=== PATIENT | male | born 1970 | race Caucasian/White ===

== ENCOUNTER 2019-12-14 12:34 | Inpatient (IN) | payer OTHER ==
[~2019-12-14] VITALS: Ht 182.9 cm; Wt 132.2 kg
[~2019-12-14 12:34] MED LIST: ALBIPROI INH; ALEVE; AMIT50 PO; AMOX500 PO; BCOIRO; BENZ2 PO; BUPR1 PO; BUPRENORPHIN-N1 EACH SL; BUPRENORPHN-NA1 EACH SL; CEPH500 PO; CHLO10 PO; CLON1 PO; CLON2 PO; CYCL10 PO; DOXY100 PO; FLUO20 PO; HALO5 PO; HYDACE10 PO; HYDACE10B PO; HYDACE5 PO; HYDMOR2 PO; HYDMOR4 PO; HYDPAM100 PO; HYDPAM50 PO; HYDSUL200 PO; IBUP600; IBUP800 PO; LORA1 PO; META800 PO; METO25ER PO; NAPR500 PO; NAPR550 PO; OMEP40CA12 PO; OXYACE5T PO; OXYACE7.5T PO; OXYC10TA19 PO; Oxycodone-Apap1 EA14 PO; PENVK500 PO; PROACE100 PO; QUET100 PO; QUET200 PO; QUET300 PO; RANI150 PO; RXCLIN PO; RXHYDACE PO; RXPROACE PO; SERT50 PO; TRAM50 PO; Vistaril50 MG PO; [UNRECOGNIZED DRUG - REMARK]; [UNRECOGNIZED DRUG - REMARK]
[2019-12-14] MEDS ORDERED: FUROSEMIDE40 MG PO (13:38)
[2019-12-14 13:40] LABS: BASOPHILS ABSOLUTE AUTO 0.09 K/mm3 (0.00-0.23); BASOPHILS PERCENT AUTO 1 % (0-2); EOSINOPHILS ABSOLUTE AUTO 0.21 K/mm3 (0.00-0.68); EOSINOPHILS PERCENT AUTO 2 % (0-6); Hematocrit 38.2 % (37.0-53.0); Hemoglobin 12.3 g/dL (13.5-17.5); IMMATURE GRAN ABSOLUTE AUTO 0.13 K/mm3 (0.00-0.10); IMMATURE GRAN PERCENT AUTO 1 % (0-1); LYMPHOCYTES ABSOLUTE AUTO 3.45 K/mm3 (0.84-5.20); LYMPHOCYTES PERCENT AUTO 25 % (21-46); MONOCYTES PERCENT AUTO 9 % (4-13); Mean Corpuscular HGB 30.5 pg (26.0-34.0); Mean Corpuscular HGB Conc 32.2 g/dL (31.5-36.5); Mean Corpuscular Volume 95 fL (80-100); NEUTROPHILS ABSOLUTE AUTO 8.91 K/mm3 (1.96-9.15); NEUTROPHILS PERCENT AUTO 63 % (41-73); Platelet Count 556 K/mm3 (150-400); RDW Coefficient Variation 12.3 % (11.7-14.2); RDW Standard Deviation 43.5 fL (35.1-46.3); Red Blood Cell Count 4.03 M/mm3 (4.30-5.90); White Blood Cell Count 14.09 K/mm3 (4.00-11.30)
[2019-12-14] MEDS ORDERED: QUET200 PO (13:47)
[2019-12-14] MEDS ORDERED: Hydroxyzine HCl50 MG PO (13:48)
[2019-12-14] MEDS ORDERED: Metformin HCl750 MG PO (13:49)
[2019-12-14] MEDS ORDERED: COMBIVENT RESPIM4 G1 INH (13:50)
[2019-12-14] MEDS ORDERED: Tenex1 MG PO (13:50)
[2019-12-14 14:01] LABS: Alanine Aminotransfer (ALT/SGP 49 U/L (12-78); Albumin, Blood 2.8 g/dL (3.4-5.0); Albumin/Globulin Ratio 0.5 (0.8-1.8); Alk Phos 125 U/L (50-136); Anion Gap 3 mmol/L (6-16); Aspartate Aminotrans (AST/SGOT 35 U/L (12-37); Bilirubin, Total 0.3 mg/dL (0.1-1.0); Blood Urea Nitrogen 23 mg/dL (8-24); Bun/Creatinine Ratio 24.2 (12.0-20.0); CO2, Blood 30 mmol/L (21-32); Calcium, Blood 9.4 mg/dL (8.5-10.1); Chloride, Blood 104 mmol/L (98-108); Creatinine, Blood 0.95 mg/dL (0.60-1.20); Globulin, Blood 5.9 g/dL (2.2-4.0); Glomerular Filtration Rate >60 (60-); Glucose, Blood 123 mg/dL (70-99); Potassium, Blood 4.4 mmol/L (3.5-5.5); Sodium, Blood 137 mmol/L (136-145); Total Protein, Blood 8.7 g/dL (6.4-8.2)
[2019-12-14] MEDS ORDERED: CLON1 PO (14:13)
[2019-12-14] MEDS ORDERED: ALBU90OI INH (14:14)
[2019-12-14] MEDS ORDERED: Diclofenac Pota50 MG PO (14:14)
[2019-12-14] MEDS ORDERED: ATOR40TA PO (14:14)
[2019-12-14 16:56] LABS: U Amphetamine Screen Not Detected; U Barbituate Screen Not Detected; U Benzodiazapine Screen DETECTED; U Buprenorphine Screen Not Detected; U Cannabinoids Screen Not Detected; U Cocaine Screen Not Detected; U Methadone Screen DETECTED; U Methamphetamine Screen Not Detected; U Opiates Screen Not Detected; U Oxycodone Screen DETECTED; U Phencyclidine Screen Not Detected; U Propoxyphene Screen Not Detected
[2019-12-14] MEDS ORDERED: METH40 PO (16:58)
[2019-12-14 21:40] LABS: Source, Urine Clean Catch
[2019-12-14 21:47] LABS: Bilirubin, Urine Neg (Neg); Blood, Urine Neg (Neg); Glucose Qualitative, Urine Neg (Neg); Ketones, Urine Neg (Neg); Leukocyte Esterase, Urine Neg (Neg); Nitrite, Urine Neg (Neg); Protein, Urine 1+ (Neg); Urobilinogen, Urine NORM (Normal); pH, Urine 6.5 (5.0-8.0)
[2019-12-14 21:50] LABS: Appearance, Urine Clear (Clear); Color, Urine Yellow (P-Yellow)
[2019-12-15 05:23] LABS: Hematocrit 34.9 % (37.0-53.0); Hemoglobin 10.9 g/dL (13.5-17.5); Mean Corpuscular HGB 30.4 pg (26.0-34.0); Mean Corpuscular HGB Conc 31.2 g/dL (31.5-36.5); Mean Corpuscular Volume 97 fL (80-100); Platelet Count 405 K/mm3 (150-400); RDW Coefficient Variation 12.5 % (11.7-14.2); RDW Standard Deviation 44.6 fL (35.1-46.3); Red Blood Cell Count 3.59 M/mm3 (4.30-5.90); White Blood Cell Count 10.63 K/mm3 (4.00-11.30)
[2019-12-15 05:42] LABS: Anion Gap 5 mmol/L (6-16); Blood Urea Nitrogen 19 mg/dL (8-24); Bun/Creatinine Ratio 21.2 (12.0-20.0); CO2, Blood 26 mmol/L (21-32); Calcium, Blood 8.4 mg/dL (8.5-10.1); Chloride, Blood 104 mmol/L (98-108); Glomerular Filtration Rate >60 (60-); Glucose, Blood 123 mg/dL (70-99); Potassium, Blood 5.7 mmol/L (3.5-5.5); Sodium, Blood 135 mmol/L (136-145)
[2019-12-15 08:50] LABS: Potassium, Blood 4.1 mmol/L (3.5-5.5)
[2019-12-15 13:42] LABS: Vancomycin, Trough 11.7 ug/mL (5.0-10.0)
[2019-12-16 05:52] LABS: BASOPHILS PERCENT AUTO 1 % (0-2); EOSINOPHILS ABSOLUTE AUTO 0.27 K/mm3 (0.00-0.68); EOSINOPHILS PERCENT AUTO 2 % (0-6); Hematocrit 39.5 % (37.0-53.0); Hemoglobin 12.8 g/dL (13.5-17.5); IMMATURE GRAN PERCENT AUTO 1 % (0-1); LYMPHOCYTES ABSOLUTE AUTO 3.53 K/mm3 (0.84-5.20); LYMPHOCYTES PERCENT AUTO 32 % (21-46); MONOCYTES ABSOLUTE AUTO 1.64 K/mm3 (0.16-1.47); MONOCYTES PERCENT AUTO 15 % (4-13); Mean Corpuscular HGB 30.8 pg (26.0-34.0); Mean Corpuscular HGB Conc 32.4 g/dL (31.5-36.5); Mean Corpuscular Volume 95 fL (80-100); Mean Platelet Volume 9.3 fL (9.1-12.4); NEUTROPHILS ABSOLUTE AUTO 5.47 K/mm3 (1.96-9.15); NEUTROPHILS PERCENT AUTO 49 % (41-73); Platelet Count 541 K/mm3 (150-400); RDW Coefficient Variation 12.4 % (11.7-14.2); RDW Standard Deviation 42.9 fL (35.1-46.3); Red Blood Cell Count 4.16 M/mm3 (4.30-5.90); White Blood Cell Count 11.11 K/mm3 (4.00-11.30)
[2019-12-16 06:00] LABS: Alanine Aminotransfer (ALT/SGP 49 U/L (12-78); Albumin, Blood 2.8 g/dL (3.4-5.0); Albumin/Globulin Ratio 0.5 (0.8-1.8); Alk Phos 145 U/L (50-136); Anion Gap 4 mmol/L (6-16); Aspartate Aminotrans (AST/SGOT 35 U/L (12-37); Bilirubin, Total 0.3 mg/dL (0.1-1.0); Blood Urea Nitrogen 25 mg/dL (8-24); Bun/Creatinine Ratio 26.6 (12.0-20.0); CO2, Blood 31 mmol/L (21-32); Chloride, Blood 105 mmol/L (98-108); Creatinine, Blood 0.94 mg/dL (0.60-1.20); Globulin, Blood 5.7 g/dL (2.2-4.0); Glomerular Filtration Rate >60 (60-); Glucose, Blood 105 mg/dL (70-99); Potassium, Blood 4.7 mmol/L (3.5-5.5); Sodium, Blood 140 mmol/L (136-145); Total Protein, Blood 8.5 g/dL (6.4-8.2)
[2019-12-16 13:52] LABS: Vancomycin, Trough 13.8 ug/mL (5.0-10.0)
[2019-12-18 05:14] LABS: BASOPHILS PERCENT AUTO 1 % (0-2); EOSINOPHILS PERCENT AUTO 3 % (0-6); Hematocrit 37.7 % (37.0-53.0); Hemoglobin 11.9 g/dL (13.5-17.5); IMMATURE GRAN ABSOLUTE AUTO 0.06 K/mm3 (0.00-0.10); IMMATURE GRAN PERCENT AUTO 1 % (0-1); LYMPHOCYTES ABSOLUTE AUTO 3.37 K/mm3 (0.84-5.20); LYMPHOCYTES PERCENT AUTO 31 % (21-46); MONOCYTES ABSOLUTE AUTO 1.24 K/mm3 (0.16-1.47); MONOCYTES PERCENT AUTO 11 % (4-13); Mean Corpuscular HGB 30.6 pg (26.0-34.0); Mean Corpuscular HGB Conc 31.6 g/dL (31.5-36.5); Mean Corpuscular Volume 97 fL (80-100); Mean Platelet Volume 9.1 fL (9.1-12.4); NEUTROPHILS ABSOLUTE AUTO 5.91 K/mm3 (1.96-9.15); NEUTROPHILS PERCENT AUTO 54 % (41-73); Platelet Count 520 K/mm3 (150-400); RDW Coefficient Variation 12.2 % (11.7-14.2); RDW Standard Deviation 43.6 fL (35.1-46.3); Red Blood Cell Count 3.89 M/mm3 (4.30-5.90); White Blood Cell Count 10.98 K/mm3 (4.00-11.30)
[2019-12-18 05:46] LABS: Anion Gap 4 mmol/L (6-16); Blood Urea Nitrogen 19 mg/dL (8-24); Bun/Creatinine Ratio 19.5 (12.0-20.0); CO2, Blood 30 mmol/L (21-32); Calcium, Blood 9.1 mg/dL (8.5-10.1); Chloride, Blood 105 mmol/L (98-108); Creatinine, Blood 0.97 mg/dL (0.60-1.20); Glomerular Filtration Rate >60 (60-); Glucose, Blood 115 mg/dL (70-99); Potassium, Blood 4.2 mmol/L (3.5-5.5); Sodium, Blood 139 mmol/L (136-145)
[2019-12-18 13:35] LABS: Vancomycin, Trough 11.1 ug/mL (5.0-10.0)
[2019-12-20 06:10] LABS: BASOPHILS ABSOLUTE AUTO 0.11 K/mm3 (0.00-0.23); BASOPHILS PERCENT AUTO 1 % (0-2); EOSINOPHILS ABSOLUTE AUTO 0.31 K/mm3 (0.00-0.68); EOSINOPHILS PERCENT AUTO 3 % (0-6); Hematocrit 36.4 % (37.0-53.0); Hemoglobin 11.5 g/dL (13.5-17.5); IMMATURE GRAN ABSOLUTE AUTO 0.04 K/mm3 (0.00-0.10); IMMATURE GRAN PERCENT AUTO 0 % (0-1); LYMPHOCYTES ABSOLUTE AUTO 3.15 K/mm3 (0.84-5.20); LYMPHOCYTES PERCENT AUTO 32 % (21-46); MONOCYTES ABSOLUTE AUTO 1.18 K/mm3 (0.16-1.47); MONOCYTES PERCENT AUTO 12 % (4-13); Mean Corpuscular HGB Conc 31.6 g/dL (31.5-36.5); Mean Corpuscular Volume 95 fL (80-100); Mean Platelet Volume 8.9 fL (9.1-12.4); NEUTROPHILS ABSOLUTE AUTO 4.94 K/mm3 (1.96-9.15); NEUTROPHILS PERCENT AUTO 51 % (41-73); Platelet Count 574 K/mm3 (150-400); RDW Coefficient Variation 12.2 % (11.7-14.2); RDW Standard Deviation 42.9 fL (35.1-46.3); Red Blood Cell Count 3.83 M/mm3 (4.30-5.90); White Blood Cell Count 9.73 K/mm3 (4.00-11.30)
[2019-12-20 06:28] LABS: Anion Gap 3 mmol/L (6-16); Blood Urea Nitrogen 20 mg/dL (8-24); Bun/Creatinine Ratio 20.2 (12.0-20.0); CO2, Blood 32 mmol/L (21-32); CPK Creatine Kinase 117 U/L (39-308); Calcium, Blood 9.2 mg/dL (8.5-10.1); Chloride, Blood 104 mmol/L (98-108); Creatinine, Blood 0.99 mg/dL (0.60-1.20); Glomerular Filtration Rate >60 (60-); Glucose, Blood 101 mg/dL (70-99); Potassium, Blood 4.4 mmol/L (3.5-5.5); Sodium, Blood 139 mmol/L (136-145)
[2019-12-20 13:57] LABS: Vancomycin, Trough 16.2 ug/mL (5.0-10.0)
[2019-12-23 13:34] LABS: Vancomycin, Trough 19.1 ug/mL (5.0-10.0)
[2019-12-24 08:09] LABS: ANTISTREPTOLYSIN O AB >3660.0 IU/mL (0.0-200.0)
[2019-12-24] MEDS ORDERED: CEPH500 PO (10:40)
[2019-12-24] MEDS ORDERED: CLON.5 PO (10:40)
[2019-12-24] MEDS ORDERED: PROBIOTIC250 MG PO (10:41)
[2019-12-25 03:09] LABS: ANTI-DNASE B STREP ANTIBODIES <78 U/mL (0-120)
[2019-12-25 11:08] LABS: B. HENSELAE IGG Negative titer (Neg:<1:320); B. HENSELAE IGM Negative titer (Neg:<1:100); B. QUINTANA IGG Negative titer (Neg:<1:320); B. QUINTANA IGM Negative titer (Neg:<1:100)
== END 2019-12-24 12:27 | disposition home or self-care (01) | DRG 872 ==
LOC: ER 12:34 → MEDS 15:15
PROVIDERS: Internal Medicine; Internal Medicine Infectious Disease; Nurse Practitioner Acute Care; Pharmacist; Physician Assistant; ADMIT Hospitalist
DX: A40.8 Other streptococcal sepsis (principal); F11.20 Opioid dependence, uncomplicated; L03.116 Cellulitis of left lower limb; Z20.828 Contact with and (suspected) exposure to other viral communicable diseases; E11.9 Type 2 diabetes mellitus without complications; E66.9 Obesity, unspecified; E78.5 Hyperlipidemia, unspecified; F25.9 Schizoaffective disorder, unspecified; I10 Essential (primary) hypertension; K21.9 Gastro-esophageal reflux disease without esophagitis; Z68.39 Body mass index [BMI] 39.0-39.9, adult; J44.9 Chronic obstructive pulmonary disease, unspecified; F17.210 Nicotine dependence, cigarettes, uncomplicated; F41.9 Anxiety disorder, unspecified
CPT/HCPCS: 36415; 73701; 80048; 80051; 80053; 80202; 82550; 82565; 82947; 83605; 85025; 85027; 86060; 86215; 86611; 87040; 87086; 93005; 93010; 94760; 96365-59; 96366; 96375-59; 99285-25; A9270; A9270-GY; J0692; J0696; J1650; J1885; J3010; J3370; J7050; J7120; Q9967

== ENCOUNTER 2020-01-17 00:11 | Day surgery (SDC) | payer OTHER ==
[~2020-01-17 00:11] MED LIST changes: +ALBU90OI INH; +ATOR40TA PO; +CLON.5 PO; +COMBIVENT RESPIM4 G1 INH; +Diclofenac Pota50 MG PO; +FUROSEMIDE40 MG PO; +Hydroxyzine HCl50 MG PO; +METH40 PO; +Metformin HCl750 MG PO; +PROBIOTIC250 MG PO; +Tenex1 MG PO
== END 2020-01-17 22:52 | disposition home or self-care (01) ==
LOC: WOUND 00:11
DX: L03.116 Cellulitis of left lower limb (principal); E11.65 Type 2 diabetes mellitus with hyperglycemia; L02.416 Cutaneous abscess of left lower limb; Z79.84 Long term (current) use of oral hypoglycemic drugs
CPT/HCPCS: 87070; 87075; 87205; G0463

== ENCOUNTER 2020-01-20 08:22 | Day surgery (SDC) | payer OTHER | END 2020-01-20 22:41 | disposition home or self-care (01) | LOC: WOUND 08:22 | DX: L03.116 Cellulitis of left lower limb (principal); E11.65 Type 2 diabetes mellitus with hyperglycemia; L02.416 Cutaneous abscess of left lower limb; Z79.84 Long term (current) use of oral hypoglycemic drugs | CPT/HCPCS: G0463 ==

== ENCOUNTER 2020-01-22 00:43 | Day surgery (SDC) | payer OTHER | END 2020-01-22 22:38 | disposition home or self-care (01) | LOC: WOUND 00:43 | DX: L03.116 Cellulitis of left lower limb (principal); E11.65 Type 2 diabetes mellitus with hyperglycemia; L02.416 Cutaneous abscess of left lower limb; Z79.84 Long term (current) use of oral hypoglycemic drugs ==

== ENCOUNTER 2020-01-24 08:48 | Day surgery (SDC) | payer OTHER | END 2020-01-24 22:36 | disposition home or self-care (01) | LOC: WOUND 08:48 | DX: L03.116 Cellulitis of left lower limb (principal); E11.65 Type 2 diabetes mellitus with hyperglycemia; L02.416 Cutaneous abscess of left lower limb; Z79.84 Long term (current) use of oral hypoglycemic drugs ==

== ENCOUNTER 2020-01-28 16:26 | Day surgery (SDC) | payer OTHER ==
[2020-03-04] MEDS ORDERED: GUAI600T33 PO (12:14)
[2020-03-04] MEDS ORDERED: AMOX-CLAV 875-1 EAC1 PO (12:15)
[2020-03-04] MEDS ORDERED: VISBIOME PROBIOTIC PO (12:16)
== END 2020-02-11 22:40 | disposition home or self-care (01) ==
LOC: WOUND 16:26
DX: L03.116 Cellulitis of left lower limb (principal); E11.65 Type 2 diabetes mellitus with hyperglycemia; L02.416 Cutaneous abscess of left lower limb; Z79.84 Long term (current) use of oral hypoglycemic drugs

== ENCOUNTER 2020-01-31 00:26 | Day surgery (SDC) | payer OTHER | END 2020-01-31 22:38 | disposition home or self-care (01) | LOC: WOUND 00:26 | DX: L03.116 Cellulitis of left lower limb (principal); E11.65 Type 2 diabetes mellitus with hyperglycemia; L02.416 Cutaneous abscess of left lower limb | CPT/HCPCS: G0463 ==

== ENCOUNTER 2020-02-03 00:35 | Day surgery (SDC) | payer OTHER ==
[2020-03-04] MEDS ORDERED: GUAI600T33 PO (12:14)
[2020-03-04] MEDS ORDERED: AMOX-CLAV 875-1 EAC1 PO (12:15)
[2020-03-04] MEDS ORDERED: VISBIOME PROBIOTIC PO (12:16)
== END 2020-02-03 22:51 | disposition home or self-care (01) ==
LOC: WOUND 00:35
DX: L03.116 Cellulitis of left lower limb (principal); E11.65 Type 2 diabetes mellitus with hyperglycemia; L02.416 Cutaneous abscess of left lower limb; Z79.84 Long term (current) use of oral hypoglycemic drugs

== ENCOUNTER 2020-02-10 01:16 | Day surgery (SDC) | payer OTHER | END 2020-02-10 23:18 | disposition home or self-care (01) | LOC: WOUND 01:16 | DX: L03.116 Cellulitis of left lower limb (principal); E11.65 Type 2 diabetes mellitus with hyperglycemia; Z79.84 Long term (current) use of oral hypoglycemic drugs; L02.416 Cutaneous abscess of left lower limb ==

== ENCOUNTER 2020-02-12 00:34 | Day surgery (SDC) | payer OTHER | END 2020-02-12 22:50 | disposition home or self-care (01) | LOC: WOUND 00:34 | DX: L03.116 Cellulitis of left lower limb (principal); E11.65 Type 2 diabetes mellitus with hyperglycemia; L02.416 Cutaneous abscess of left lower limb; Z79.84 Long term (current) use of oral hypoglycemic drugs ==

== ENCOUNTER 2020-02-14 00:35 | Day surgery (SDC) | payer OTHER | END 2020-02-14 12:00 | disposition home or self-care (01) | LOC: WOUND 00:35 | DX: L03.116 Cellulitis of left lower limb (principal); E11.65 Type 2 diabetes mellitus with hyperglycemia; L02.416 Cutaneous abscess of left lower limb; Z79.84 Long term (current) use of oral hypoglycemic drugs ==

== ENCOUNTER 2020-02-19 00:32 | Day surgery (SDC) | payer OTHER | END 2020-02-19 22:37 | disposition home or self-care (01) | LOC: WOUND 00:32 | DX: L03.116 Cellulitis of left lower limb (principal); E11.65 Type 2 diabetes mellitus with hyperglycemia; L02.416 Cutaneous abscess of left lower limb; Z79.84 Long term (current) use of oral hypoglycemic drugs ==

== ENCOUNTER 2020-02-21 00:44 | Day surgery (SDC) | payer OTHER | END 2020-02-21 22:59 | disposition home or self-care (01) | LOC: WOUND 00:44 | DX: L03.116 Cellulitis of left lower limb (principal); E11.65 Type 2 diabetes mellitus with hyperglycemia; L02.416 Cutaneous abscess of left lower limb; Z79.84 Long term (current) use of oral hypoglycemic drugs ==

== ENCOUNTER 2020-02-24 00:42 | Day surgery (SDC) | payer OTHER | END 2020-02-24 22:05 | disposition home or self-care (01) | LOC: WOUND 00:42 | DX: L03.116 Cellulitis of left lower limb (principal); E11.65 Type 2 diabetes mellitus with hyperglycemia; L02.416 Cutaneous abscess of left lower limb; Z79.899 Other long term (current) drug therapy ==

== ENCOUNTER 2020-02-26 00:43 | Day surgery (SDC) | payer OTHER ==
[2020-03-04] MEDS ORDERED: GUAI600T33 PO (12:14)
[2020-03-04] MEDS ORDERED: AMOX-CLAV 875-1 EAC1 PO (12:15)
[2020-03-04] MEDS ORDERED: VISBIOME PROBIOTIC PO (12:16)
== END 2020-02-26 22:38 | disposition home or self-care (01) ==
LOC: WOUND 00:43
DX: E11.628 Type 2 diabetes mellitus with other skin complications (principal); L03.116 Cellulitis of left lower limb; L02.416 Cutaneous abscess of left lower limb; E11.65 Type 2 diabetes mellitus with hyperglycemia; E11.52 Type 2 diabetes mellitus with diabetic peripheral angiopathy with gangrene; I96 Gangrene, not elsewhere classified; J44.9 Chronic obstructive pulmonary disease, unspecified; I10 Essential (primary) hypertension; B19.20 Unspecified viral hepatitis C without hepatic coma; Z79.51 Long term (current) use of inhaled steroids; Z79.84 Long term (current) use of oral hypoglycemic drugs; Z79.899 Other long term (current) drug therapy

== ENCOUNTER 2020-02-28 01:58 | Day surgery (SDC) | payer OTHER | END 2020-02-28 22:36 | disposition home or self-care (01) | LOC: WOUND 01:58 | DX: L03.116 Cellulitis of left lower limb (principal); E11.65 Type 2 diabetes mellitus with hyperglycemia; L02.416 Cutaneous abscess of left lower limb; Z79.84 Long term (current) use of oral hypoglycemic drugs ==

== ENCOUNTER 2020-03-02 00:25 | Day surgery (SDC) | payer OTHER ==
[2020-03-02] MEDS ORDERED: FUROSEMIDE40 MG PO (12:13)
[2020-03-02] MEDS ORDERED: METHADONE HCL10 MG PO (12:13)
[2020-03-02] MEDS ORDERED: Tenex1 MG PO (17:06)
[2020-03-04] MEDS ORDERED: GUAI600T33 PO (12:14)
[2020-03-04] MEDS ORDERED: AMOX-CLAV 875-1 EAC1 PO (12:15)
[2020-03-04] MEDS ORDERED: VISBIOME PROBIOTIC PO (12:16)
== END 2020-03-02 22:38 | disposition home or self-care (01) ==
LOC: WOUND 00:25
DX: E11.628 Type 2 diabetes mellitus with other skin complications (principal); L03.116 Cellulitis of left lower limb; L02.416 Cutaneous abscess of left lower limb; E11.65 Type 2 diabetes mellitus with hyperglycemia; E11.52 Type 2 diabetes mellitus with diabetic peripheral angiopathy with gangrene; I96 Gangrene, not elsewhere classified; J44.9 Chronic obstructive pulmonary disease, unspecified; I10 Essential (primary) hypertension; B19.20 Unspecified viral hepatitis C without hepatic coma; Z79.84 Long term (current) use of oral hypoglycemic drugs; Z79.891 Long term (current) use of opiate analgesic; Z79.2 Long term (current) use of antibiotics; Z79.51 Long term (current) use of inhaled steroids; Z79.899 Other long term (current) drug therapy

== ENCOUNTER 2020-03-02 09:45 | Inpatient (IN) | payer OTHER ==
[~2020-03-02] VITALS: Ht 185.4 cm; Wt 128.6 kg
[2020-03-02 10:30] LABS: BASOPHILS ABSOLUTE AUTO 0.06 K/mm3 (0.00-0.23); BASOPHILS PERCENT AUTO 1 % (0-2); EOSINOPHILS ABSOLUTE AUTO 0.03 K/mm3 (0.00-0.68); EOSINOPHILS PERCENT AUTO 0 % (0-6); Hematocrit 36.4 % (37.0-53.0); Hemoglobin 11.9 g/dL (13.5-17.5); IMMATURE GRAN ABSOLUTE AUTO 0.07 K/mm3 (0.00-0.10); IMMATURE GRAN PERCENT AUTO 1 % (0-1); LYMPHOCYTES ABSOLUTE AUTO 1.62 K/mm3 (0.84-5.20); LYMPHOCYTES PERCENT AUTO 15 % (21-46); MONOCYTES ABSOLUTE AUTO 1.32 K/mm3 (0.16-1.47); MONOCYTES PERCENT AUTO 12 % (4-13); Mean Corpuscular HGB 29.8 pg (26.0-34.0); Mean Corpuscular HGB Conc 32.7 g/dL (31.5-36.5); Mean Corpuscular Volume 91 fL (80-100); Mean Platelet Volume 9.7 fL (9.1-12.4); NEUTROPHILS ABSOLUTE AUTO 7.75 K/mm3 (1.96-9.15); NEUTROPHILS PERCENT AUTO 71 % (41-73); Platelet Count 257 K/mm3 (150-400); RDW Coefficient Variation 12.8 % (11.7-14.2); RDW Standard Deviation 42.5 fL (35.1-46.3); White Blood Cell Count 10.85 K/mm3 (4.00-11.30)
[2020-03-02 10:51] LABS: Alanine Aminotransfer (ALT/SGP 34 U/L (12-78); Albumin/Globulin Ratio 0.6 (0.8-1.8); Alk Phos 93 U/L (50-136); Anion Gap 3 mmol/L (6-16); Aspartate Aminotrans (AST/SGOT 56 U/L (12-37); Bilirubin, Total 0.6 mg/dL (0.1-1.0); Blood Urea Nitrogen 17 mg/dL (8-24); Bun/Creatinine Ratio 20.9 (12.0-20.0); CO2, Blood 29 mmol/L (21-32); Calcium, Blood 8.9 mg/dL (8.5-10.1); Chloride, Blood 101 mmol/L (98-108); Creatinine, Blood 0.81 mg/dL (0.60-1.20); Globulin, Blood 5.4 g/dL (2.2-4.0); Glomerular Filtration Rate >60 (60-); Glucose, Blood 157 mg/dL (70-99); Potassium, Blood 5.6 mmol/L (3.5-5.5); Sodium, Blood 133 mmol/L (136-145); Total Protein, Blood 8.4 g/dL (6.4-8.2)
[2020-03-02] MEDS ORDERED: FUROSEMIDE40 MG PO (12:13)
[2020-03-02] MEDS ORDERED: METHADONE HCL10 MG PO ×2 (12:13)
[2020-03-02 14:47] LABS: Bicarbonate Venous 26.3 mmol/L (24.0-30.0); PO2 Venous 45.9 mmHg (38-42); pH Blood Venous 7.41 (7.34-7.37)
[2020-03-02 14:48] LABS: Base Excess Venous 2.9 mmol/L
[2020-03-02 15:41] LABS: U Amphetamine Screen Not Detected; U Barbituate Screen Not Detected; U Benzodiazapine Screen Not Detected; U Buprenorphine Screen Not Detected; U Cannabinoids Screen Not Detected; U Cocaine Screen Not Detected; U Methadone Screen DETECTED; U Methamphetamine Screen Not Detected; U Opiates Screen DETECTED; U Oxycodone Screen Not Detected; U Phencyclidine Screen Not Detected; U Propoxyphene Screen Not Detected
[2020-03-02] MEDS ORDERED: Tenex1 MG PO ×2 (17:06)
[2020-03-03 04:09] LABS: BASOPHILS ABSOLUTE AUTO 0.02 K/mm3 (0.00-0.23); BASOPHILS PERCENT AUTO 0 % (0-2); EOSINOPHILS PERCENT AUTO 0 % (0-6); Hematocrit 33.9 % (37.0-53.0); Hemoglobin 11.1 g/dL (13.5-17.5); IMMATURE GRAN PERCENT AUTO 1 % (0-1); LYMPHOCYTES ABSOLUTE AUTO 1.46 K/mm3 (0.84-5.20); LYMPHOCYTES PERCENT AUTO 13 % (21-46); MONOCYTES ABSOLUTE AUTO 0.78 K/mm3 (0.16-1.47); MONOCYTES PERCENT AUTO 7 % (4-13); Mean Corpuscular HGB 29.8 pg (26.0-34.0); Mean Corpuscular HGB Conc 32.7 g/dL (31.5-36.5); Mean Corpuscular Volume 91 fL (80-100); Mean Platelet Volume 9.6 fL (9.1-12.4); NEUTROPHILS ABSOLUTE AUTO 8.61 K/mm3 (1.96-9.15); NEUTROPHILS PERCENT AUTO 79 % (41-73); Platelet Count 254 K/mm3 (150-400); RDW Coefficient Variation 12.7 % (11.7-14.2); RDW Standard Deviation 42.5 fL (35.1-46.3); Red Blood Cell Count 3.73 M/mm3 (4.30-5.90); White Blood Cell Count 10.97 K/mm3 (4.00-11.30)
--- NOTE | 2020-03-03 04:26 | NUR ---
SHIFT SUMMARY: PATIENT ANXIOUS AND EMOTIONAL INTERMITTENTLY STATING HE FEELS AWFUL. DENIES PAIN AT THE WOUND VAC SITE. PATIENTS GIRLFRIEND TO BRING THE PROFESSIONAL NURSING ASSISTANT IN FOR THE WOUND VAC THIS AM. PATIENT SBA ASSIST BUT STEADY ON FEET, COMPLIANT WITH CARE, VSS, CALL LIGHT WITHIN REACH, BED LOW AND LOCKED.
[2020-03-03 04:28] LABS: Alanine Aminotransfer (ALT/SGP 34 U/L (12-78); Albumin, Blood 2.8 g/dL (3.4-5.0); Albumin/Globulin Ratio 0.5 (0.8-1.8); Alk Phos 90 U/L (50-136); Anion Gap 6 mmol/L (6-16); Aspartate Aminotrans (AST/SGOT 25 U/L (12-37); Bilirubin, Total 0.3 mg/dL (0.1-1.0); Blood Urea Nitrogen 17 mg/dL (8-24); Bun/Creatinine Ratio 23.7 (12.0-20.0); CO2, Blood 27 mmol/L (21-32); Chloride, Blood 106 mmol/L (98-108); Creatinine, Blood 0.72 mg/dL (0.60-1.20); Globulin, Blood 5.1 g/dL (2.2-4.0); Glomerular Filtration Rate >60 (60-); Glucose, Blood 183 mg/dL (70-99); Potassium, Blood 4.4 mmol/L (3.5-5.5); Sodium, Blood 139 mmol/L (136-145); Total Protein, Blood 7.9 g/dL (6.4-8.2)
--- NOTE | 2020-03-03 07:48 | NUR ---
NURSING PCU DAYSHIFT: Assumed care of pt at approx 0700. A/O, pleasant, cooperative w/care, mildly anxious. C/O 4/10 L rib pain that worsens w/deep inspiration. Ambulates independently and w/o difficulty. Dressed wound to LLE w/wound vac in place which has been present since prior to admission, redness noted above wound on LLE. Tele in place, NSR, no c/o CP/pressure, no noted edema, SBP 130's prior to a.m. meds. L/S fairly cta t/o w/fine crackles noted to LLL, mild dyspnea w/exertion, occ cough though improved per pt, O2 sat low 90's on RA. Abd SNT, BT+, voiding w/o difficulty per pt. 20g PIV to LFA w/NS infusing at 75cc/hr. Pt denies any needs this a.m. other than methadone w/a.m. meds. Pt states feeling much improved compared to time of admit. Currently OOB in chair having coffee, call light in reach. Awaiting rounding from PMD, cont to monitor for any changes.
--- NOTE | 2020-03-03 17:47 | NUR ---
NURSING PCU DAYSHIFT SUMMARY: No significant changes noted t/o the shift. Pt continues to state that he is feeling better than prior to admission w/decreased pain and improved respiratory status. Seen by PMD, new d/o received, 2nd rapid covid completed, results reviewed, IVF dc'd. Pt to imaging for chest CT, results reviewed w/pt by PMD, questions answered. Pt has remained independent in the room t/o the shift and has ambulated t/o the halls w/o difficulty. Denies any current questions/needs, call light in reach, cont to monitor until rpt is given to NOC RN.
--- NOTE | 2020-03-04 06:16 | NUR ---
SHIFT SUMMARY. ASSUMED CARE AT 1900.NO SOB W/ FEW STEPS AROUND ROOM AND TO BR. DEEP INSPIRATION PROMOTES A DRY COUGH AND INSPIRATORY PAIN JABBING AT LT SIDE RIB AREA NEAR AXILLA. CRACKLES LT BASE. RA W/ 92-95 % SAT. WOUND VAC INTACT AND CIRC CHECK WNL.
[2020-03-04] MEDS ORDERED: GUAI600T33 PO ×2 (12:14)
[2020-03-04] MEDS ORDERED: AMOX-CLAV 875-1 EAC1 PO ×2 (12:15)
[2020-03-04] MEDS ORDERED: VISBIOME PROBIOTIC PO ×2 (12:16)
== END 2020-03-04 13:16 | disposition home or self-care (01) | DRG 871 ==
LOC: ER 09:45 → PCU 15:17
PROVIDERS: Emergency Medicine; Nurse Practitioner Acute Care; ADMIT Internal Medicine
DX: A41.9 Sepsis, unspecified organism (principal); J18.9 Pneumonia, unspecified organism; J96.01 Acute respiratory failure with hypoxia; J44.0 Chronic obstructive pulmonary disease with (acute) lower respiratory infection; J44.1 Chronic obstructive pulmonary disease with (acute) exacerbation; L03.116 Cellulitis of left lower limb; F11.20 Opioid dependence, uncomplicated; Z20.828 Contact with and (suspected) exposure to other viral communicable diseases; E11.9 Type 2 diabetes mellitus without complications; E87.5 Hyperkalemia; E87.6 Hypokalemia; F25.9 Schizoaffective disorder, unspecified; I10 Essential (primary) hypertension; E78.5 Hyperlipidemia, unspecified; E86.0 Dehydration; F41.9 Anxiety disorder, unspecified; F17.210 Nicotine dependence, cigarettes, uncomplicated; Z79.84 Long term (current) use of oral hypoglycemic drugs; E66.01 Morbid (severe) obesity due to excess calories; Z68.37 Body mass index [BMI] 37.0-37.9, adult
CPT/HCPCS: 36415; 71045; 71250; 80053; 82803; 82947; 83605; 84132; 84145; 85025; 87040; 87449; 93005; 93010; 94640; 94644; 94667; 94760; 96365; 96367; 96375; 99285-25; A9270; A9270-GY; J0456; J0696; J1100; J1650; J2920; J7030; J7050; U0003

== ENCOUNTER 2020-03-06 02:01 | Day surgery (SDC) | payer OTHER ==
[~2020-03-06 02:01] MED LIST changes: +AMOX-CLAV 875-1 EAC1 PO; +GUAI600T33 PO; +METHADONE HCL10 MG PO; +VISBIOME PROBIOTIC PO
== END 2020-03-06 22:42 | disposition home or self-care (01) ==
LOC: WOUND 02:01
DX: L03.116 Cellulitis of left lower limb (principal); E11.65 Type 2 diabetes mellitus with hyperglycemia; L02.416 Cutaneous abscess of left lower limb; Z79.84 Long term (current) use of oral hypoglycemic drugs

== ENCOUNTER 2020-03-09 00:46 | Day surgery (SDC) | payer OTHER | END 2020-03-09 22:39 | disposition home or self-care (01) | LOC: WOUND 00:46 | DX: E11.622 Type 2 diabetes mellitus with other skin ulcer (principal); E11.65 Type 2 diabetes mellitus with hyperglycemia; L97.922 Non-pressure chronic ulcer of unspecified part of left lower leg with fat layer exposed; Z79.84 Long term (current) use of oral hypoglycemic drugs ==

== ENCOUNTER 2020-03-18 00:36 | Day surgery (SDC) | payer OTHER | END 2020-03-18 12:00 | disposition home or self-care (01) | LOC: WOUND 00:36 | DX: E11.628 Type 2 diabetes mellitus with other skin complications (principal); L03.116 Cellulitis of left lower limb; L02.416 Cutaneous abscess of left lower limb; E11.622 Type 2 diabetes mellitus with other skin ulcer; L97.822 Non-pressure chronic ulcer of other part of left lower leg with fat layer exposed; E11.65 Type 2 diabetes mellitus with hyperglycemia; I96 Gangrene, not elsewhere classified; E11.52 Type 2 diabetes mellitus with diabetic peripheral angiopathy with gangrene; I10 Essential (primary) hypertension; J44.9 Chronic obstructive pulmonary disease, unspecified; Z79.84 Long term (current) use of oral hypoglycemic drugs; Z79.2 Long term (current) use of antibiotics; Z79.899 Other long term (current) drug therapy ==

== ENCOUNTER 2020-03-25 03:17 | Day surgery (SDC) | payer OTHER | END 2020-03-25 23:24 | disposition home or self-care (01) | LOC: WOUND 03:17 | DX: E11.628 Type 2 diabetes mellitus with other skin complications (principal); L03.116 Cellulitis of left lower limb; L02.416 Cutaneous abscess of left lower limb; E11.65 Type 2 diabetes mellitus with hyperglycemia; E11.52 Type 2 diabetes mellitus with diabetic peripheral angiopathy with gangrene; I96 Gangrene, not elsewhere classified; E11.622 Type 2 diabetes mellitus with other skin ulcer; L97.822 Non-pressure chronic ulcer of other part of left lower leg with fat layer exposed; J44.9 Chronic obstructive pulmonary disease, unspecified; I10 Essential (primary) hypertension; B19.20 Unspecified viral hepatitis C without hepatic coma; Z79.84 Long term (current) use of oral hypoglycemic drugs; Z79.899 Other long term (current) drug therapy ==

== ENCOUNTER 2020-04-08 00:58 | Day surgery (SDC) | payer OTHER | END 2020-04-08 22:42 | disposition home or self-care (01) | LOC: WOUND 00:58 | DX: E11.622 Type 2 diabetes mellitus with other skin ulcer (principal); E11.65 Type 2 diabetes mellitus with hyperglycemia; L97.922 Non-pressure chronic ulcer of unspecified part of left lower leg with fat layer exposed; Z79.84 Long term (current) use of oral hypoglycemic drugs ==

== ENCOUNTER 2020-04-23 00:07 | Day surgery (SDC) | payer OTHER | END 2020-04-23 23:25 | disposition home or self-care (01) | LOC: WOUND 00:07 | DX: E11.622 Type 2 diabetes mellitus with other skin ulcer (principal); E11.65 Type 2 diabetes mellitus with hyperglycemia; L97.825 Non-pressure chronic ulcer of other part of left lower leg with muscle involvement without evidence of necrosis; Z79.899 Other long term (current) drug therapy | CPT/HCPCS: G0463 ==

== ENCOUNTER 2020-05-07 00:10 | Day surgery (SDC) | payer OTHER | END 2020-05-07 23:03 | disposition home or self-care (01) | LOC: WOUND 00:10 | DX: E11.628 Type 2 diabetes mellitus with other skin complications (principal); L03.116 Cellulitis of left lower limb; L02.416 Cutaneous abscess of left lower limb; E11.65 Type 2 diabetes mellitus with hyperglycemia; E11.622 Type 2 diabetes mellitus with other skin ulcer; L97.822 Non-pressure chronic ulcer of other part of left lower leg with fat layer exposed; J44.9 Chronic obstructive pulmonary disease, unspecified; I10 Essential (primary) hypertension; B19.20 Unspecified viral hepatitis C without hepatic coma; Z79.84 Long term (current) use of oral hypoglycemic drugs; Z79.899 Other long term (current) drug therapy; Z20.828 Contact with and (suspected) exposure to other viral communicable diseases | CPT/HCPCS: G0463 ==

== ENCOUNTER 2020-05-20 01:19 | Day surgery (SDC) | payer OTHER | END 2020-05-20 22:59 | disposition home or self-care (01) | LOC: WOUND 01:19 | DX: E11.622 Type 2 diabetes mellitus with other skin ulcer (principal); L97.822 Non-pressure chronic ulcer of other part of left lower leg with fat layer exposed; E11.628 Type 2 diabetes mellitus with other skin complications; L03.116 Cellulitis of left lower limb; L02.416 Cutaneous abscess of left lower limb; E11.65 Type 2 diabetes mellitus with hyperglycemia; Z79.84 Long term (current) use of oral hypoglycemic drugs; Z79.899 Other long term (current) drug therapy; J44.9 Chronic obstructive pulmonary disease, unspecified; I10 Essential (primary) hypertension; Z20.828 Contact with and (suspected) exposure to other viral communicable diseases | CPT/HCPCS: G0463 ==

== ENCOUNTER 2020-06-03 00:23 | Day surgery (SDC) | payer OTHER | END 2020-06-03 22:46 | disposition home or self-care (01) | LOC: WOUND 00:23 | DX: L97.922 Non-pressure chronic ulcer of unspecified part of left lower leg with fat layer exposed (principal); E11.65 Type 2 diabetes mellitus with hyperglycemia; L03.116 Cellulitis of left lower limb; L02.416 Cutaneous abscess of left lower limb; Z79.84 Long term (current) use of oral hypoglycemic drugs | CPT/HCPCS: A9270 ==

== ENCOUNTER 2020-06-10 00:40 | Day surgery (SDC) | payer OTHER | END 2020-06-10 23:08 | disposition home or self-care (01) | LOC: WOUND 00:40 | DX: E11.628 Type 2 diabetes mellitus with other skin complications (principal); L03.116 Cellulitis of left lower limb; L02.416 Cutaneous abscess of left lower limb; E11.65 Type 2 diabetes mellitus with hyperglycemia; E11.52 Type 2 diabetes mellitus with diabetic peripheral angiopathy with gangrene; I96 Gangrene, not elsewhere classified; E11.622 Type 2 diabetes mellitus with other skin ulcer; L97.822 Non-pressure chronic ulcer of other part of left lower leg with fat layer exposed; J44.9 Chronic obstructive pulmonary disease, unspecified; Z79.84 Long term (current) use of oral hypoglycemic drugs; Z79.899 Other long term (current) drug therapy; Z20.822 Contact with and (suspected) exposure to COVID-19 | CPT/HCPCS: A9270 ==

== ENCOUNTER 2020-06-17 00:11 | Day surgery (SDC) | payer OTHER | END 2020-06-17 22:35 | disposition home or self-care (01) | LOC: WOUND 00:11 | DX: E11.622 Type 2 diabetes mellitus with other skin ulcer (principal); L97.822 Non-pressure chronic ulcer of other part of left lower leg with fat layer exposed; L97.821 Non-pressure chronic ulcer of other part of left lower leg limited to breakdown of skin | CPT/HCPCS: A9270 ==

== ENCOUNTER 2020-06-24 00:12 | Day surgery (SDC) | payer OTHER | END 2020-06-24 23:45 | disposition home or self-care (01) | LOC: WOUND 00:12 | DX: E11.622 Type 2 diabetes mellitus with other skin ulcer (principal); L97.922 Non-pressure chronic ulcer of unspecified part of left lower leg with fat layer exposed; E11.65 Type 2 diabetes mellitus with hyperglycemia | CPT/HCPCS: A9270 ==

== ENCOUNTER 2020-07-01 00:09 | Day surgery (SDC) | payer OTHER | END 2020-07-01 23:05 | disposition home or self-care (01) | LOC: WOUND 00:09 | DX: E11.622 Type 2 diabetes mellitus with other skin ulcer (principal); L97.922 Non-pressure chronic ulcer of unspecified part of left lower leg with fat layer exposed; E11.65 Type 2 diabetes mellitus with hyperglycemia | CPT/HCPCS: G0463 ==

== ENCOUNTER 2020-07-15 00:19 | Day surgery (SDC) | payer OTHER | END 2020-07-15 22:47 | disposition home or self-care (01) | LOC: WOUND 00:19 | DX: E11.622 Type 2 diabetes mellitus with other skin ulcer (principal); L97.922 Non-pressure chronic ulcer of unspecified part of left lower leg with fat layer exposed; E11.65 Type 2 diabetes mellitus with hyperglycemia; Z86.19 Personal history of other infectious and parasitic diseases | CPT/HCPCS: A9270; G0463 ==

== ENCOUNTER 2020-07-28 00:24 | Day surgery (SDC) | payer OTHER | END 2020-07-28 22:50 | disposition home or self-care (01) | LOC: WOUND 00:24 | DX: E11.622 Type 2 diabetes mellitus with other skin ulcer (principal); E11.65 Type 2 diabetes mellitus with hyperglycemia; L97.922 Non-pressure chronic ulcer of unspecified part of left lower leg with fat layer exposed | CPT/HCPCS: G0463 ==

== ENCOUNTER 2020-08-19 06:17 | Emergency (ER) | payer OTHER ==
[~2020-08-19] VITALS: Ht 182.9 cm; Wt 129.3 kg
[2020-08-19 07:09] LABS: BASOPHILS ABSOLUTE AUTO 0.08 K/mm3 (0.00-0.23); BASOPHILS PERCENT AUTO 1 % (0-2); EOSINOPHILS PERCENT AUTO 3 % (0-6); Hematocrit 38.8 % (37.0-53.0); Hemoglobin 12.9 g/dL (13.5-17.5); IMMATURE GRAN ABSOLUTE AUTO 0.04 K/mm3 (0.00-0.10); IMMATURE GRAN PERCENT AUTO 1 % (0-1); LYMPHOCYTES ABSOLUTE AUTO 2.51 K/mm3 (0.84-5.20); LYMPHOCYTES PERCENT AUTO 34 % (21-46); MONOCYTES ABSOLUTE AUTO 0.67 K/mm3 (0.16-1.47); MONOCYTES PERCENT AUTO 9 % (4-13); Mean Corpuscular HGB 29.8 pg (26.0-34.0); Mean Corpuscular HGB Conc 33.2 g/dL (31.5-36.5); Mean Corpuscular Volume 90 fL (80-100); Mean Platelet Volume 9.5 fL (9.1-12.4); NEUTROPHILS ABSOLUTE AUTO 3.89 K/mm3 (1.96-9.15); NEUTROPHILS PERCENT AUTO 53 % (41-73); Platelet Count 276 K/mm3 (150-400); RDW Coefficient Variation 12.4 % (11.7-14.2); RDW Standard Deviation 40.5 fL (35.1-46.3); Red Blood Cell Count 4.33 M/mm3 (4.30-5.90); White Blood Cell Count 7.39 K/mm3 (4.00-11.30)
[2020-08-19 07:31] LABS: Alanine Aminotransfer (ALT/SGP 37 U/L (12-78); Albumin, Blood 3.2 g/dL (3.4-5.0); Albumin/Globulin Ratio 0.7 (0.8-1.8); Alk Phos 95 U/L (50-136); Anion Gap 3 mmol/L (6-16); Aspartate Aminotrans (AST/SGOT 28 U/L (12-37); Bilirubin, Total 0.3 mg/dL (0.1-1.0); Blood Urea Nitrogen 14 mg/dL (8-24); Bun/Creatinine Ratio 18.5 (12.0-20.0); CO2, Blood 31 mmol/L (21-32); Calcium, Blood 8.7 mg/dL (8.5-10.1); Chloride, Blood 105 mmol/L (98-108); Creatinine, Blood 0.76 mg/dL (0.60-1.20); Globulin, Blood 4.3 g/dL (2.2-4.0); Glomerular Filtration Rate >60 (60-); Glucose, Blood 111 mg/dL (70-99); Potassium, Blood 4.3 mmol/L (3.5-5.5); Sodium, Blood 139 mmol/L (136-145); Total Protein, Blood 7.5 g/dL (6.4-8.2)
== END 2020-08-19 08:51 | disposition home or self-care (01) ==
LOC: ER 06:17
PROVIDERS: Emergency Medicine
DX: R51.9 Headache, unspecified (principal); H53.2 Diplopia; J44.9 Chronic obstructive pulmonary disease, unspecified; E78.5 Hyperlipidemia, unspecified; E11.9 Type 2 diabetes mellitus without complications; Z79.84 Long term (current) use of oral hypoglycemic drugs; Z79.899 Other long term (current) drug therapy
CPT/HCPCS: 36415; 70450; 80053; 85025; 96374; 96375; 99284-25; J0780; J1100; J1200; J7030

== ENCOUNTER 2020-08-25 00:50 | Day surgery (SDC) | payer OTHER | END 2020-08-25 22:53 | disposition home or self-care (01) | LOC: WOUND 00:50 | DX: L97.922 Non-pressure chronic ulcer of unspecified part of left lower leg with fat layer exposed (principal); E11.65 Type 2 diabetes mellitus with hyperglycemia | CPT/HCPCS: G0463 ==

== ENCOUNTER 2020-09-08 23:15 | Observation (INO) | payer OTHER ==
[~2020-09-08] VITALS: Ht 182.9 cm; Wt 131.5 kg
[2020-09-08 23:42] LABS: Source, Urine Clean Catch
[2020-09-08 23:45] LABS: Appearance, Urine Clear (Clear); Bilirubin, Urine Neg (Neg); Blood, Urine Neg (Neg); Color, Urine Yellow (P-Yellow); Glucose Qualitative, Urine 2+ (Neg); Ketones, Urine Neg (Neg); Leukocyte Esterase, Urine Neg (Neg); Nitrite, Urine Neg (Neg); Protein, Urine Neg (Neg); Urobilinogen, Urine NORM (Normal)
[2020-09-08 23:55] LABS: U Cannabinoids Screen DETECTED; U Methadone Screen DETECTED; U Opiates Screen DETECTED
[2020-09-08 23:56] LABS: U Amphetamine Screen Not Detected; U Barbituate Screen Not Detected; U Benzodiazapine Screen Not Detected; U Buprenorphine Screen DETECTED; U Cocaine Screen Not Detected; U Methamphetamine Screen Not Detected; U Oxycodone Screen Not Detected; U Phencyclidine Screen Not Detected; U Propoxyphene Screen Not Detected
[2020-09-09 02:02] LABS: BASOPHILS ABSOLUTE AUTO 0.06 K/mm3 (0.00-0.23); BASOPHILS PERCENT AUTO 1 % (0-2); EOSINOPHILS ABSOLUTE AUTO 0.07 K/mm3 (0.00-0.68); EOSINOPHILS PERCENT AUTO 1 % (0-6); Hematocrit 38.7 % (37.0-53.0); Hemoglobin 13.3 g/dL (13.5-17.5); IMMATURE GRAN ABSOLUTE AUTO 0.03 K/mm3 (0.00-0.10); IMMATURE GRAN PERCENT AUTO 0 % (0-1); LYMPHOCYTES ABSOLUTE AUTO 1.77 K/mm3 (0.84-5.20); LYMPHOCYTES PERCENT AUTO 18 % (21-46); MONOCYTES ABSOLUTE AUTO 0.62 K/mm3 (0.16-1.47); MONOCYTES PERCENT AUTO 6 % (4-13); Mean Corpuscular HGB 29.6 pg (26.0-34.0); Mean Corpuscular HGB Conc 34.4 g/dL (31.5-36.5); Mean Corpuscular Volume 86 fL (80-100); NEUTROPHILS ABSOLUTE AUTO 7.14 K/mm3 (1.96-9.15); NEUTROPHILS PERCENT AUTO 74 % (41-73); Platelet Count 244 K/mm3 (150-400); RDW Coefficient Variation 12.2 % (11.7-14.2); RDW Standard Deviation 38.6 fL (35.1-46.3); Red Blood Cell Count 4.49 M/mm3 (4.30-5.90); White Blood Cell Count 9.69 K/mm3 (4.00-11.30)
[2020-09-09 02:20] LABS: Alanine Aminotransfer (ALT/SGP 47 U/L (12-78); Albumin, Blood 3.3 g/dL (3.4-5.0); Albumin/Globulin Ratio 0.9 (0.8-1.8); Alk Phos 95 U/L (50-136); Anion Gap 5 mmol/L (6-16); Aspartate Aminotrans (AST/SGOT 30 U/L (12-37); Bilirubin, Total 0.6 mg/dL (0.1-1.0); Blood Urea Nitrogen 21 mg/dL (8-24); Bun/Creatinine Ratio 22.3 (12.0-20.0); CO2, Blood 26 mmol/L (21-32); CPK Creatine Kinase 459 U/L (39-308); Calcium, Blood 8.6 mg/dL (8.5-10.1); Chloride, Blood 112 mmol/L (98-108); Creatinine, Blood 0.94 mg/dL (0.60-1.20); Globulin, Blood 3.8 g/dL (2.2-4.0); Glomerular Filtration Rate >60 (60-); Glucose, Blood 179 mg/dL (70-99); Potassium, Blood 3.9 mmol/L (3.5-5.5); Sodium, Blood 143 mmol/L (136-145); Total Protein, Blood 7.1 g/dL (6.4-8.2); Troponin I <0.015 ng/mL (0.000-0.040)
[2020-09-09 02:42] LABS: Creatine Kinase MB 4.2 ng/mL (0.0-3.6); Creatine Kinase MB Index 0.9 (0.0-4.0); Ethanol (Alcohol), Blood, Med 109 mg/dL; Salicylate 4.6 mg/dL (2.8-20.0)
[2020-09-09 02:43] LABS: Acetaminophen, Random <2.0 ug/mL (10.0-30.0)
== END 2020-09-09 07:01 | disposition home or self-care (01) ==
LOC: ER 23:15 → EOR 23:16
PROVIDERS: ADMIT Emergency Medicine
DX: F10.121 Alcohol abuse with intoxication delirium (principal); F11.23 Opioid dependence with withdrawal; F17.210 Nicotine dependence, cigarettes, uncomplicated; F25.9 Schizoaffective disorder, unspecified; F41.9 Anxiety disorder, unspecified; I10 Essential (primary) hypertension; E11.9 Type 2 diabetes mellitus without complications; K21.9 Gastro-esophageal reflux disease without esophagitis; J44.9 Chronic obstructive pulmonary disease, unspecified; G89.29 Other chronic pain; Z79.84 Long term (current) use of oral hypoglycemic drugs
CPT/HCPCS: 80053; 81003; 82550; 82553; 84484; 85025; 93005; 93010; 96372; 99285; G0378; G0480; J1200; J1630; J2060; J2250; J7030

== ENCOUNTER 2021-04-21 15:20 | Inpatient (IN) | payer OTHER ==
[~2021-04-21] VITALS: Ht 185.4 cm; Wt 134.3 kg
[2021-04-21 16:04] LABS: BASOPHILS ABSOLUTE AUTO 0.09 K/mm3 (0.00-0.23); BASOPHILS PERCENT AUTO 0 % (0-2); EOSINOPHILS ABSOLUTE AUTO 0.01 K/mm3 (0.00-0.68); EOSINOPHILS PERCENT AUTO 0 % (0-6); Hematocrit 45.7 % (37.0-53.0); Hemoglobin 15.4 g/dL (13.5-17.5); IMMATURE GRAN ABSOLUTE AUTO 0.14 K/mm3 (0.00-0.10); IMMATURE GRAN PERCENT AUTO 1 % (0-1); LYMPHOCYTES ABSOLUTE AUTO 0.97 K/mm3 (0.84-5.20); LYMPHOCYTES PERCENT AUTO 5 % (21-46); MONOCYTES ABSOLUTE AUTO 1.07 K/mm3 (0.16-1.47); MONOCYTES PERCENT AUTO 5 % (4-13); Mean Corpuscular HGB 30.2 pg (26.0-34.0); Mean Corpuscular HGB Conc 33.7 g/dL (31.5-36.5); Mean Corpuscular Volume 90 fL (80-100); NEUTROPHILS ABSOLUTE AUTO 18.35 K/mm3 (1.96-9.15); NEUTROPHILS PERCENT AUTO 89 % (41-73); Platelet Count 266 K/mm3 (150-400); RDW Coefficient Variation 12.1 % (11.7-14.2); RDW Standard Deviation 39.3 fL (35.1-46.3); White Blood Cell Count 20.63 K/mm3 (4.00-11.30)
[2021-04-21 16:20] LABS: International Normalized Ratio 1.04; Prothrombin Time Results 10.9 Sec (9.7-11.5)
[2021-04-21 16:30] LABS: Source, Urine Catheter
[2021-04-21 16:32] LABS: Alanine Aminotransfer (ALT/SGP 55 U/L (12-78); Albumin, Blood 4.1 g/dL (3.4-5.0); Albumin/Globulin Ratio 0.9 (0.8-1.8); Alk Phos 100 U/L (50-136); Anion Gap 6 mmol/L (6-16); Aspartate Aminotrans (AST/SGOT 30 U/L (12-37); Bilirubin, Total 0.9 mg/dL (0.1-1.0); Blood Urea Nitrogen 18 mg/dL (8-24); Bun/Creatinine Ratio 15.8 (12.0-20.0); CO2, Blood 27 mmol/L (21-32); Calcium, Blood 9.8 mg/dL (8.5-10.1); Chloride, Blood 101 mmol/L (98-108); Creatinine, Blood 1.14 mg/dL (0.60-1.20); Globulin, Blood 4.7 g/dL (2.2-4.0); Glomerular Filtration Rate >60 (60-); Glucose, Blood 160 mg/dL (70-99); Potassium, Blood 4.4 mmol/L (3.5-5.5); Sodium, Blood 134 mmol/L (136-145); Total Protein, Blood 8.8 g/dL (6.4-8.2)
[2021-04-21 16:38] LABS: Appearance, Urine Clear (Clear); Bilirubin, Urine Neg (Neg); Blood, Urine Neg (Neg); Color, Urine Yellow (P-Yellow); Glucose Qualitative, Urine Neg (Neg); Ketones, Urine Neg (Neg); Leukocyte Esterase, Urine 1+ (Neg); Nitrite, Urine Neg (Neg); Protein, Urine 1+ (Neg); Specific Gravity, Urine 1.015 (1.003-1.022); Urobilinogen, Urine NORM (Normal)
[2021-04-21] MEDS ORDERED: METH10 PO (16:44)
[2021-04-21] MEDS ORDERED: Seroquel Xr50 MG PO (16:45)
[2021-04-21] MEDS ORDERED: Tenex1 MG PO (16:46)
[2021-04-21] MEDS ORDERED: HYDPAM50 PO (16:48)
[2021-04-21 16:51] LABS: Bacteria Few /hpf; Red Blood Cells, Urine 0-2 /hpf (0-2); Squamous Epithelial Cells Few /hpf (Few); Transitional Epithelial Cells Few /hpf (0-Rare)
[2021-04-21] MEDS ORDERED: Ventolin/Prove6.7 GM INH (18:43)
[2021-04-21] MEDS ORDERED: Diclofenac Sodi50 MG PO (18:43)
[2021-04-21 20:15] LABS: Influenza A, PCR NEGATIVE (NEGATIVE); Influenza B, PCR NEGATIVE (NEGATIVE); Resp Syncytial Virus, PCR NEGATIVE (NEGATIVE); SARS-Cov-2 (COVID-19) PCR, MMC NEGATIVE (NEGATIVE)
[2021-04-21] MEDS ORDERED: QUETIAPINE FUM200 M6 PO (21:54)
--- NOTE | 2021-04-22 02:28 | NUR ---
PATIENT IS A NEW ADMIT FROM THE ED. AXO X4 AND SBA TRANSFER FROM [facility] TO BED. TELEMETRY PLACED AND TECH REPORTS ST W/PVC @ 104. DENIES CHEST PAIN, SOB,, AND N/V. CELLULITIS LLE. NS STARTED AT 75mL/HR X ONE BAG. NICOTINE PATCH ORDERED CEDS. PATIENT ANXIOUS ON ADMIT. ORIENTED TO ROOM AND CALL LIGHT SYSTEM.
--- NOTE | 2021-04-22 04:18 | NUR ---
SHIFT SUMMARY PATIENT HAD NO ACUTE CHANGES. LESS ANXIOUS AFTER ADMIT AND TAKING HIS EVENING MEDICATION. SEROQUEL CHANGED FROM 150 MG TO 1,000 MG PER HOSPITALIST. BIOMEDICAL SCIENTIST REPORTS ST 104 WITH PVC. ON ROOM AIR. DENIES CHEST PAIN, SOB, AND N/V. ABLE TO SLEEP AFTER ADMIT. CALL LIGHT IN REACH. BED IN LOWEST POSITION. WILL CONTINUE TO MONITOR UNTIL DAY SHIF NURSE ASSUMES CARE.
[2021-04-22 06:21] LABS: Anion Gap 8 mmol/L (6-16); Blood Urea Nitrogen 14 mg/dL (8-24); Bun/Creatinine Ratio 16.1 (12.0-20.0); CO2, Blood 26 mmol/L (21-32); Calcium, Blood 8.4 mg/dL (8.5-10.1); Chloride, Blood 103 mmol/L (98-108); Creatinine, Blood 0.87 mg/dL (0.60-1.20); Glomerular Filtration Rate >60 (60-); Glucose, Blood 130 mg/dL (70-99); Potassium, Blood 4.1 mmol/L (3.5-5.5); Sodium, Blood 137 mmol/L (136-145)
[2021-04-22 06:57] LABS: BASOPHILS ABSOLUTE AUTO 0.05 K/mm3 (0.00-0.23); BASOPHILS PERCENT AUTO 0 % (0-2); EOSINOPHILS ABSOLUTE AUTO 0.04 K/mm3 (0.00-0.68); EOSINOPHILS PERCENT AUTO 0 % (0-6); Hematocrit 39.4 % (37.0-53.0); Hemoglobin 12.9 g/dL (13.5-17.5); IMMATURE GRAN ABSOLUTE AUTO 0.05 K/mm3 (0.00-0.10); IMMATURE GRAN PERCENT AUTO 0 % (0-1); LYMPHOCYTES ABSOLUTE AUTO 1.05 K/mm3 (0.84-5.20); LYMPHOCYTES PERCENT AUTO 8 % (21-46); MONOCYTES ABSOLUTE AUTO 0.63 K/mm3 (0.16-1.47); MONOCYTES PERCENT AUTO 5 % (4-13); Mean Corpuscular HGB 29.3 pg (26.0-34.0); Mean Corpuscular HGB Conc 32.7 g/dL (31.5-36.5); Mean Corpuscular Volume 90 fL (80-100); Mean Platelet Volume 10.1 fL (9.1-12.4); NEUTROPHILS ABSOLUTE AUTO 11.24 K/mm3 (1.96-9.15); NEUTROPHILS PERCENT AUTO 86 % (41-73); Platelet Count 206 K/mm3 (150-400); RDW Coefficient Variation 12.3 % (11.7-14.2); RDW Standard Deviation 40.2 fL (35.1-46.3); White Blood Cell Count 13.06 K/mm3 (4.00-11.30)
--- NOTE | 2021-04-22 18:00 | NUR ---
SHIFT SUMMARY PT AWAKE AT START OF SHIFT, SITTING UP TO EOB. A&O, WANTING HIS METHADONE. MEDS GIVEN PER EMAR. PT IS MORBIDLY OBESE DIABETIC. DR CHANEY IN TO SEE PT AND DISCUSSED PLAN OF CARE AND ENCOURAGED A MORE HEALTHY LIFESTYLE. HgA1c ORDERED AND DISCUSSED WITH PT. REDNESS AND SWELLING TO LLE MARKED. PT REPORTED NOT FEELING VERY WELL AT START OF SHIFT D/T INFECTION. PT JUST NOW REPORTED FEELING MUCH BETTER D/T IV ABX SINCE ADMISSION. PT CURRENTLY SITTING UP TO EOB EATING DINNER AND THEN REQUESTING TO GO FOR A WALK IN HALLS. DENIED FURTHER NEEDS AT THIS TIME. CALL LT IN REACH.
--- NOTE | 2021-04-23 04:24 | NUR ---
PATIENT HAD A BLOOD CULTURE: GRAM + COCCI. CHARGE NURSE, PHARMACY, AND HOSPITALIST WERE NOTIFIED. PATIENT VSS AND IS RESTING COMFORTABLY, WE WILL CONTINUE TO MONITOR.
--- NOTE | 2021-04-23 05:23 | NUR ---
PT IS A/OX4. INDEPENDENT IN ROOM. LLE CELLULITIS IMPROVING. INTERMITTENT ABX: VANCO/ANCEF. PT. HAD BC GRAM + COCCI. HOSPITALIST & PHARMACY NOTIFIED -- ABX ARE STILL GOOD COVERAGE. ALL HIS MEDS ARE UPDATED. PT'S VSS AND WE'LL CONTINUE TO MONITOR THE REMAINDER OF THE SHIFT.
--- NOTE | 2021-04-23 16:00 | NUR ---
SHIFT SUMMARY PT RESTING QUIETLY AT START OF SHIFT. WAKES EASILY FOR CARE. PT HAS BEEN PLEASANT AND CO-OP. UP INDEPENDENTLY TO BTHRM AND AROUND . PT AMBULATING IN HALLS TODAY, SEVERAL TIMES. PT/OT IN FOR ELIOT. DR CHANEY HERE AGAIN THIS AM TO SEE PT AND DISCUSS PLAN OF CARE. PT ENCOURAGED TO MONITOR DIABETIC DIET AND START EXERCISE PLAN. PT MORBIDLY OBESE AND REPORTED THAT HE HAS PUT ON 80 LBS, LYING AROUND. PT HAS REQUESTED TO GO FOR WALKS IN HALLS SEVERAL TIMES TODAY. REPORTS LLE CELLULITIS IMPROVED FROM YESTERDAY AND NOT "HOT". LLE STILL VERY RED AND WARM. PT REPORTS FEELING MUCH BETTER TODAY WELL. VISITOR TO THIS AFTERNOON. PT CURRENTLY TAKING A SHOWER. DENIES FURTHER NEEDS AT THIS TIME. ABLE TO MAKE NEEDS KNOWN.
--- NOTE | 2021-04-24 04:11 | NUR ---
A/OX4, INDEPENDENT IN ROOM. PIV LF AC VANCO/ANCEF, LLE CELLULITIS IMPROVING, PT. HAVING NO C/O OF PAIN.
[2021-04-24 06:00] LABS: BASOPHILS ABSOLUTE AUTO 0.08 K/mm3 (0.00-0.23); BASOPHILS PERCENT AUTO 1 % (0-2); EOSINOPHILS ABSOLUTE AUTO 0.21 K/mm3 (0.00-0.68); EOSINOPHILS PERCENT AUTO 3 % (0-6); Hematocrit 39.1 % (37.0-53.0); Hemoglobin 12.9 g/dL (13.5-17.5); IMMATURE GRAN ABSOLUTE AUTO 0.08 K/mm3 (0.00-0.10); IMMATURE GRAN PERCENT AUTO 1 % (0-1); LYMPHOCYTES ABSOLUTE AUTO 1.56 K/mm3 (0.84-5.20); LYMPHOCYTES PERCENT AUTO 25 % (21-46); MONOCYTES ABSOLUTE AUTO 0.85 K/mm3 (0.16-1.47); MONOCYTES PERCENT AUTO 14 % (4-13); Mean Corpuscular HGB 29.1 pg (26.0-34.0); Mean Corpuscular Volume 88 fL (80-100); Mean Platelet Volume 9.9 fL (9.1-12.4); NEUTROPHILS ABSOLUTE AUTO 3.51 K/mm3 (1.96-9.15); NEUTROPHILS PERCENT AUTO 56 % (41-73); Platelet Count 188 K/mm3 (150-400); RDW Standard Deviation 38.5 fL (35.1-46.3); Red Blood Cell Count 4.44 M/mm3 (4.30-5.90); White Blood Cell Count 6.29 K/mm3 (4.00-11.30)
[2021-04-24 06:51] LABS: Anion Gap 5 mmol/L (6-16); Blood Urea Nitrogen 13 mg/dL (8-24); Bun/Creatinine Ratio 14.7 (12.0-20.0); CO2, Blood 29 mmol/L (21-32); Calcium, Blood 8.9 mg/dL (8.5-10.1); Chloride, Blood 106 mmol/L (98-108); Creatinine, Blood 0.89 mg/dL (0.60-1.20); Glomerular Filtration Rate >60 (60-); Glucose, Blood 156 mg/dL (70-99); Potassium, Blood 4.1 mmol/L (3.5-5.5); Sodium, Blood 140 mmol/L (136-145)
[2021-04-24 12:07] LABS: Creatinine, Blood 0.84 mg/dL (0.60-1.20)
--- NOTE | 2021-04-25 05:33 | NUR ---
PT RESTED OVERNIGHT. NO COMPLAINTS VOICED. ROUTINE MEDICATIONS ADMINISTERED AND IV ANTIBIOTICS CONTINUED. CBG AT 2120 WAS 225 MG/DL. VSS. BED IS IN LOW POSITION WITH THE CALL LIGHT WITHIN EASY REACH.
[2021-04-25] MEDS ORDERED: NICO21TP TOP (13:05)
[2021-04-25] MEDS ORDERED: BACTRIM DS TAB1 EAC6 PO (13:06)
[2021-04-25] MEDS ORDERED: VISBIOME 112.51 EACH PO (13:06)
== END 2021-04-25 13:29 | disposition home or self-care (01) | DRG 872 ==
LOC: ER 15:20 → MEDS 20:36
PROVIDERS: Pharmacist; Physician Assistant; Student in an Organized Health Care Education/Training Program; ADMIT Internal Medicine
DX: A41.9 Sepsis, unspecified organism (principal); L03.116 Cellulitis of left lower limb; F11.20 Opioid dependence, uncomplicated; Z68.41 Body mass index [BMI] 40.0-44.9, adult; N39.0 Urinary tract infection, site not specified; E87.2 Acidosis; Z20.822 Contact with and (suspected) exposure to COVID-19; R65.20 Severe sepsis without septic shock; B96.20 Unspecified Escherichia coli [E. coli] as the cause of diseases classified elsewhere; J44.9 Chronic obstructive pulmonary disease, unspecified; E66.01 Morbid (severe) obesity due to excess calories; F25.9 Schizoaffective disorder, unspecified; Z28.21 Immunization not carried out because of patient refusal; E11.9 Type 2 diabetes mellitus without complications; I10 Essential (primary) hypertension; F41.9 Anxiety disorder, unspecified; K21.9 Gastro-esophageal reflux disease without esophagitis; E78.5 Hyperlipidemia, unspecified; G89.29 Other chronic pain; F17.210 Nicotine dependence, cigarettes, uncomplicated; Z79.84 Long term (current) use of oral hypoglycemic drugs; Z79.899 Other long term (current) drug therapy; Z98.890 Other specified postprocedural states; Z71.6 Tobacco abuse counseling
CPT/HCPCS: 0241U; 36415; 36416; 73590; 73701; 80048; 80053; 80202; 81001; 82565; 82947; 83036; 83605; 85025; 85610; 85730; 87040; 87077; 87086; 87186; 93005; 93010; 94640; 94760; 96365-59; 96366; 96367; 96375-59; 97110; 97161; 99285-25; A9270; J0690; J1650; J1815; J1885; J3370; J7030; J7050; Q9967

== ENCOUNTER 2021-08-19 11:04 | Emergency (ER) | payer OTHER ==
[~2021-08-19] VITALS: Ht 182.9 cm; Wt 129.3 kg
[~2021-08-19 11:04] MED LIST changes: +BACTRIM DS TAB1 EAC6 PO; +Diclofenac Sodi50 MG PO; +METH10 PO; +NICO21TP TOP; +QUETIAPINE FUM200 M6 PO; +Seroquel Xr50 MG PO; +VISBIOME 112.51 EACH PO; +Ventolin/Prove6.7 GM INH
[2021-08-19 12:04] LABS: BASOPHILS ABSOLUTE AUTO 0.09 K/mm3 (0.00-0.23); BASOPHILS PERCENT AUTO 1 % (0-2); EOSINOPHILS ABSOLUTE AUTO 0.24 K/mm3 (0.00-0.68); EOSINOPHILS PERCENT AUTO 3 % (0-6); Hematocrit 41.5 % (37.0-53.0); IMMATURE GRAN ABSOLUTE AUTO 0.04 K/mm3 (0.00-0.10); IMMATURE GRAN PERCENT AUTO 0 % (0-1); LYMPHOCYTES ABSOLUTE AUTO 2.76 K/mm3 (0.84-5.20); LYMPHOCYTES PERCENT AUTO 29 % (21-46); MONOCYTES ABSOLUTE AUTO 0.83 K/mm3 (0.16-1.47); MONOCYTES PERCENT AUTO 9 % (4-13); Mean Corpuscular HGB 29.3 pg (26.0-34.0); Mean Corpuscular HGB Conc 33.7 g/dL (31.5-36.5); Mean Corpuscular Volume 87 fL (80-100); Mean Platelet Volume 9.9 fL (9.1-12.4); NEUTROPHILS ABSOLUTE AUTO 5.63 K/mm3 (1.96-9.15); NEUTROPHILS PERCENT AUTO 59 % (41-73); Platelet Count 270 K/mm3 (150-400); RDW Coefficient Variation 13.7 % (11.7-14.2); RDW Standard Deviation 43.5 fL (35.1-46.3); Red Blood Cell Count 4.78 M/mm3 (4.30-5.90); White Blood Cell Count 9.59 K/mm3 (4.00-11.30)
[2021-08-19 12:28] LABS: Alanine Aminotransfer (ALT/SGP 43 U/L (12-78); Albumin, Blood 3.5 g/dL (3.4-5.0); Albumin/Globulin Ratio 0.7 (0.8-1.8); Alk Phos 98 U/L (50-136); Anion Gap 6 mmol/L (6-16); Aspartate Aminotrans (AST/SGOT 55 U/L (12-37); Bilirubin, Total 0.6 mg/dL (0.1-1.0); Blood Urea Nitrogen 18 mg/dL (8-24); Bun/Creatinine Ratio 18.2 (12.0-20.0); CO2, Blood 28 mmol/L (21-32); Chloride, Blood 103 mmol/L (98-108); Creatinine, Blood 0.99 mg/dL (0.60-1.20); Globulin, Blood 4.8 g/dL (2.2-4.0); Glomerular Filtration Rate >60 (60-); Glucose, Blood 157 mg/dL (70-99); Sodium, Blood 137 mmol/L (136-145); Total Protein, Blood 8.3 g/dL (6.4-8.2)
[2021-08-19 14:00] LABS: Calcium, Ionized (POC) 1.13 mmol/L (1.10-1.46); Chloride (POC) 103 mmol/L (98-108); Glucose (ISTAT POC) 180 mg/dL (70-99); Hemoglobin (POC) 12.6 g/dL (13.5-17.5); Potassium (POC) 4.6 mmol/L (3.5-5.5); Sodium (POC) 137 mmol/L (135-148); Total CO2 (POC) 26 mmol/L (21-32)
[2021-08-19] MEDS ORDERED: Bactrim Ds Tab1 EACH PO (14:26)
[2021-08-19] MEDS ORDERED: CEPH500 PO (14:26)
== END 2021-08-19 14:35 | disposition home or self-care (01) ==
LOC: ER 11:04
PROVIDERS: Physician Assistant
DX: L03.221 Cellulitis of neck (principal); Z79.84 Long term (current) use of oral hypoglycemic drugs; Z79.899 Other long term (current) drug therapy; K21.9 Gastro-esophageal reflux disease without esophagitis; J44.9 Chronic obstructive pulmonary disease, unspecified; E78.5 Hyperlipidemia, unspecified; E11.9 Type 2 diabetes mellitus without complications; I10 Essential (primary) hypertension; F17.210 Nicotine dependence, cigarettes, uncomplicated
CPT/HCPCS: 36415; 70491; 80047; 80053; 85014; 85025; 93005; 93010; 96374; 99284-25; J0690; J7030; Q9967

== ENCOUNTER → 2023-06-15 | Outpatient (CLI) | payer OTHER ==
[~2023-06-15] MED LIST changes: +Bactrim Ds Tab1 EACH PO
[2023-06-15 08:47] LABS: BASOPHILS ABSOLUTE AUTO 0.09 K/mm3 (0.00-0.23); BASOPHILS PERCENT AUTO 1 % (0-2); EOSINOPHILS ABSOLUTE AUTO 0.18 K/mm3 (0.00-0.68); EOSINOPHILS PERCENT AUTO 2 % (0-6); Hematocrit 41.9 % (37.0-53.0); Hemoglobin 13.8 g/dL (13.5-17.5); IMMATURE GRAN ABSOLUTE AUTO 0.03 K/mm3 (0.00-0.10); IMMATURE GRAN PERCENT AUTO 0 % (0-1); LYMPHOCYTES ABSOLUTE AUTO 2.73 K/mm3 (0.84-5.20); LYMPHOCYTES PERCENT AUTO 34 % (21-46); MONOCYTES PERCENT AUTO 9 % (4-13); Mean Corpuscular HGB 28.6 pg (26.0-34.0); Mean Corpuscular HGB Conc 32.9 g/dL (31.5-36.5); Mean Corpuscular Volume 87 fL (80-100); Mean Platelet Volume 9.5 fL (9.1-12.4); NEUTROPHILS ABSOLUTE AUTO 4.25 K/mm3 (1.96-9.15); NEUTROPHILS PERCENT AUTO 53 % (41-73); Platelet Count 337 K/mm3 (150-400); RDW Coefficient Variation 12.7 % (11.7-14.2); RDW Standard Deviation 39.8 fL (35.1-46.3); Red Blood Cell Count 4.82 M/mm3 (4.30-5.90); White Blood Cell Count 7.98 K/mm3 (4.00-11.30)
[2023-06-15 09:03] LABS: Bun/Creatinine Ratio 13.1 (12.0-20.0); Calcium, Blood 9.5 mg/dL (8.5-10.1); Creatinine, Blood 1.3 mg/dL (0.60-1.20); Potassium, Blood 4.5 mmol/L (3.5-5.5)
== END ==
LOC: LAB SHORT 08:26 → LAB 08:26
PROVIDERS: Physician Assistant
DX: E11.622 Type 2 diabetes mellitus with other skin ulcer (principal)
CPT/HCPCS: 80048; 85025; 87070; 87075; 87077; 87147; 87186; 87205

== ENCOUNTER 2024-02-28 19:05 | Emergency (ER) | payer OTHER ==
[~2024-02-28] VITALS: Ht 182.9 cm; Wt 120.2 kg
[2024-02-28 20:36] LABS: BASOPHILS ABSOLUTE AUTO 0.08 K/mm3 (0.00-0.23); BASOPHILS PERCENT AUTO 1 % (0-2); EOSINOPHILS ABSOLUTE AUTO 0.02 K/mm3 (0.00-0.68); EOSINOPHILS PERCENT AUTO 0 % (0-6); Hematocrit 36.5 % (37.0-53.0); Hemoglobin 12.2 g/dL (13.5-17.5); IMMATURE GRAN PERCENT AUTO 1 % (0-1); LYMPHOCYTES PERCENT AUTO 7 % (21-46); MONOCYTES ABSOLUTE AUTO 0.47 K/mm3 (0.16-1.47); MONOCYTES PERCENT AUTO 3 % (4-13); Mean Corpuscular HGB 28.6 pg (26.0-34.0); Mean Corpuscular HGB Conc 33.4 g/dL (31.5-36.5); Mean Corpuscular Volume 86 fL (80-100); Mean Platelet Volume 9.8 fL (9.1-12.4); NEUTROPHILS ABSOLUTE AUTO 13.72 K/mm3 (1.96-9.15); NEUTROPHILS PERCENT AUTO 89 % (41-73); Platelet Count 241 K/mm3 (150-400); RDW Coefficient Variation 13.1 % (11.7-14.2); Red Blood Cell Count 4.27 M/mm3 (4.30-5.90); White Blood Cell Count 15.49 K/mm3 (4.00-11.30)
[2024-02-28 20:57] LABS: Albumin, Blood 3.2 g/dL (3.4-5.0); Albumin/Globulin Ratio 0.7 (0.8-1.8); Bilirubin, Total 0.3 mg/dL (0.1-1.0); Bun/Creatinine Ratio 19.6 (12.0-20.0); Calcium, Blood 9.4 mg/dL (8.5-10.1); Creatinine, Blood 1.07 mg/dL (0.60-1.20); Globulin, Blood 4.3 g/dL (2.2-4.0); Potassium, Blood 4.1 mmol/L (3.5-5.5); Total Protein, Blood 7.5 g/dL (6.4-8.2)
[2024-02-29 00:06] VITALS: BP 139/93
[2024-02-29] MEDS ORDERED: SULTRIDS PO (00:19)
== END 2024-02-29 00:52 | disposition home or self-care (01) ==
LOC: ER 19:05
PROVIDERS: Student in an Organized Health Care Education/Training Program
DX: L03.115 Cellulitis of right lower limb (principal); Z87.828 Personal history of other (healed) physical injury and trauma; J44.9 Chronic obstructive pulmonary disease, unspecified; E11.9 Type 2 diabetes mellitus without complications; E78.5 Hyperlipidemia, unspecified; K21.9 Gastro-esophageal reflux disease without esophagitis; F25.9 Schizoaffective disorder, unspecified; F17.210 Nicotine dependence, cigarettes, uncomplicated; Z79.84 Long term (current) use of oral hypoglycemic drugs; Z79.899 Other long term (current) drug therapy
CPT/HCPCS: 36415; 73701; 80053; 83605; 85025; 87040; 99284-25; Q9967

== ENCOUNTER 2024-03-02 04:11 | Inpatient (IN) | payer OTHER ==
[~2024-03-02] VITALS: Ht 182.9 cm; Wt 121.0 kg
[~2024-03-02 04:11] MED LIST changes: +SULTRIDS PO
[2024-03-02] MEDS ORDERED: Piperacillin/Tazobactam Sod 4.5 GM in NS 100 ML IV ONE (05:00)
[2024-03-02 05:14] LABS: BASOPHILS ABSOLUTE AUTO 0.06 K/mm3 (0.00-0.23); BASOPHILS PERCENT AUTO 0 % (0-2); EOSINOPHILS ABSOLUTE AUTO 0.19 K/mm3 (0.00-0.68); EOSINOPHILS PERCENT AUTO 1 % (0-6); Hematocrit 32.3 % (37.0-53.0); Hemoglobin 10.9 g/dL (13.5-17.5); IMMATURE GRAN ABSOLUTE AUTO 0.24 K/mm3 (0.00-0.10); IMMATURE GRAN PERCENT AUTO 2 % (0-1); LYMPHOCYTES ABSOLUTE AUTO 2.22 K/mm3 (0.84-5.20); LYMPHOCYTES PERCENT AUTO 16 % (21-46); MONOCYTES ABSOLUTE AUTO 1.58 K/mm3 (0.16-1.47); MONOCYTES PERCENT AUTO 11 % (4-13); Mean Corpuscular HGB 28.2 pg (26.0-34.0); Mean Corpuscular HGB Conc 33.7 g/dL (31.5-36.5); Mean Corpuscular Volume 84 fL (80-100); Mean Platelet Volume 9.9 fL (9.1-12.4); NEUTROPHILS ABSOLUTE AUTO 9.62 K/mm3 (1.96-9.15); NEUTROPHILS PERCENT AUTO 69 % (41-73); Platelet Count 227 K/mm3 (150-400); RDW Coefficient Variation 13.4 % (11.7-14.2); RDW Standard Deviation 40.9 fL (35.1-46.3); Red Blood Cell Count 3.86 M/mm3 (4.30-5.90); White Blood Cell Count 13.91 K/mm3 (4.00-11.30)
[2024-03-02 05:30] LABS: Albumin, Blood 2.5 g/dL (3.4-5.0); Albumin/Globulin Ratio 0.6 (0.8-1.8); Bilirubin, Total 0.3 mg/dL (0.1-1.0); Bun/Creatinine Ratio 16.2 (12.0-20.0); Calcium, Blood 9.3 mg/dL (8.5-10.1); Creatinine, Blood 2.34 mg/dL (0.60-1.20); Globulin, Blood 4.5 g/dL (2.2-4.0); Potassium, Blood 3.8 mmol/L (3.5-5.5)
[2024-03-02] MEDS ORDERED: Lactated Ringer's 1,000 ML IV ONE (05:45)
[2024-03-02] MEDS ORDERED: FLU VACC TS2024-25(6MOS UP)/PF 45 MCG/0.5 ML SYRINGE IM ONE (05:55)
[2024-03-02] MEDS ORDERED: Ondansetron HCl 2 MG / ML 2ML Vial IV PRN (05:55)
[2024-03-02] MEDS ORDERED: Acetaminophen 325 MG TABLET PO PRN (05:55)
[2024-03-02] MEDS ORDERED: Lactated Ringer's 1,000 ML IV SCH (06:00)
[2024-03-02] MEDS ORDERED: Vancomycin HCL 2,000 MG in NS 500 ML IV ONE (06:10)
[2024-03-02 07:03] VITALS: BP 122/73
[2024-03-02] MEDS ORDERED: Insulin Human Lispro 100 Units/ML 3ML Syringe SC SCH ×3 (07:30→16:30)
[2024-03-02] MEDS ORDERED: LOSA25 PO (08:09)
[2024-03-02] MEDS ORDERED: GLIP10 PO (08:11)
[2024-03-02] MEDS ORDERED: DICLOFENAC PO (08:11)
[2024-03-02] MEDS ORDERED: Lactobacil 2-S.Thermo-Bifido 1 1 Cap PO SCH (09:00)
[2024-03-02] MEDS ORDERED: Docusate Sodium 100 MG Cap PO SCH (09:00)
[2024-03-02] MEDS ORDERED: Insulin Glargine-Yfgn 100 Unit/mL 3 ML SYR SC SCH (09:00)
[2024-03-02] MEDS ORDERED: CeFAZolin Sodium 2,000 MG in NS 100 ML IV SCH (12:00)
[2024-03-02 14:50] VITALS: BP 132/83
[2024-03-02] MEDS ORDERED: Nicotine 21 MG PATCH TOP SCH (15:00)
[2024-03-02] MEDS ORDERED: NS 1,000 ML IV ONE (16:00)
[2024-03-02] MEDS ORDERED: Albuterol HFA200 ACT/6.7 GM INH INH PRN (16:30)
--- NOTE | 2024-03-02 16:45 | NUR ---
PER DR. GREEN PT IS TO GET IV NORMAL SALINE AFTER GETTING 2 BAGS OF LACTATED RINGERS. PT IS STILL INFUSING 1ST BAG. WILL RETIME NS.
--- NOTE | 2024-03-02 18:19 | NUR ---
SHIFT SUMMARY PT A&OX4. PT ADMITTED DUE TO CELLULITIS. PT HAS WHEEPING WOUND ON THE R L EXTREMITY. CHUX PLACED UNDER WOUND, WOUND OPEN TO AIR. PT RECIEVING ANTIBIOTICS AND CONT. FLUIDS. PT HAS IV. PT ABLE TO AMBULATE. BLOOD SUGARS HAVE BEEN ELEVATED, PT REPORTS ITS NOT USUAL FOR HIM, INSULIN DOSAGE WAS CORECTED. PT ON A HIGH SLIDING SCALE. BLOOD SUGARS COMING DOWN. CALLS APPROPRIATE. VSS. PT ON ANTIBIOTICS. PT ON RA. NO ACUTE CHANGES TODAY. CALL LIGHT IN REACH.
[2024-03-02 19:24] VITALS: BP 128/91
[2024-03-02] MEDS ORDERED: HyDROXyzine HCl 25 MG Tab PO SCH (21:00)
[2024-03-02] MEDS ORDERED: GuanFACINE HCl 1 MG Tab PO SCH (21:00)
[2024-03-02] MEDS ORDERED: QUEtiapine Fumarate 200 MG Tab PO SCH (21:00)
[2024-03-02 21:23] LABS: Creatinine, Blood 2.33 mg/dL (0.60-1.20); Vancomycin, Random 16.6 ug/mL
[2024-03-02] MEDS ORDERED: NS 250 ML IV PRN (23:45)
[2024-03-03] MEDS ORDERED: Vancomycin HCL 1,500 MG in NS 250 ML IV ONE (00:30)
[2024-03-03] MEDS ORDERED: NS 1,000 ML IV SCH (04:00)
--- NOTE | 2024-03-03 04:08 | NUR ---
SHIFT SUMMARY PT IS A&O X4, ABLE TO MAKE HIS NEEDS KNOWN, COOPERATIVE WITH CARE. PT CONTINUES IV ABX TX. LEGS ELEVATED IN BED. PT DENIES PAIN AT HS. LR INFUSING ORDERED. NO ACUTE EVENTS DURING THIS SHIFT. BG AT HS 163. CALL LIGHT W/I REACH. BED AT THE LOWEST POSITION.
[2024-03-03 04:10] VITALS: BP 136/119
[2024-03-03 07:47] VITALS: BP 117/63
[2024-03-03] MEDS ORDERED: Nicotine 21 MG PATCH TOP SCH (09:00)
[2024-03-03] MEDS ORDERED: Insulin Glargine-Yfgn 100 Unit/mL 3 ML SYR SC SCH (09:00)
[2024-03-03] MEDS ORDERED: Heparin Sodium,Porcine 5,000 UNIT/0.5 ML SDV SC SCH (09:00)
[2024-03-03 10:21] LABS: Hematocrit 31.3 % (37.0-53.0); Hemoglobin 10.3 g/dL (13.5-17.5); Mean Corpuscular HGB 28.1 pg (26.0-34.0); Mean Corpuscular HGB Conc 32.9 g/dL (31.5-36.5); Mean Corpuscular Volume 85 fL (80-100); Platelet Count 258 K/mm3 (150-400); RDW Coefficient Variation 13.5 % (11.7-14.2); RDW Standard Deviation 42.5 fL (35.1-46.3); Red Blood Cell Count 3.67 M/mm3 (4.30-5.90); White Blood Cell Count 12.59 K/mm3 (4.00-11.30)
[2024-03-03 10:32] LABS: Albumin, Blood 2.3 g/dL (3.4-5.0); Albumin/Globulin Ratio 0.5 (0.8-1.8); Bilirubin, Total 0.2 mg/dL (0.1-1.0); Bun/Creatinine Ratio 16.9 (12.0-20.0); Calcium, Blood 8.9 mg/dL (8.5-10.1); Creatinine, Blood 2.36 mg/dL (0.60-1.20); Globulin, Blood 4.5 g/dL (2.2-4.0); Potassium, Blood 4.3 mmol/L (3.5-5.5); Total Protein, Blood 6.8 g/dL (6.4-8.2)
[2024-03-03] MEDS ORDERED: Lactated Ringer's 1,000 ML IV SCH ×2 (11:15→16:30)
[2024-03-03] MEDS ORDERED: Methadone HCL 10 MG TAB PO SCH (11:30)
[2024-03-03 15:32] LABS: Bun/Creatinine Ratio 16.7 (12.0-20.0); Calcium, Blood 8.8 mg/dL (8.5-10.1); Creatinine, Blood 2.27 mg/dL (0.60-1.20); Potassium, Blood 4.6 mmol/L (3.5-5.5)
[2024-03-03 15:34] VITALS: BP 133/82
--- NOTE | 2024-03-03 18:17 | NUR ---
SHIFT SUMMARY PT A&OX4. PT ADMITTED DUE TO CELLULITIS OF THE R LOWER EXTREMITY. PT REPORTS PAIN. PAIN MANAGED PER EMAR. PT RECIEVING CONT. FLUIDS FOR HYDRATION. NO ACUTE CHANGES HAPPENED DURING SHIFT. VSS. PT RECEIVING ANTIBIOTICS. PT BLOOD SUGARS SHOW IMPROVEMENT. PT CALLS APPROPRIATELY. CALL LIGHT IN REACH. EXPECTED D/C DATE IS 03/05/24. PT INDEPENDENT IN ROOM.
[2024-03-03 19:50] VITALS: BP 156/96
[2024-03-03 22:27] LABS: Vancomycin, Random 12.7 ug/mL
[2024-03-03] MEDS ORDERED: Vancomycin HCL 1,500 MG in NS 250 ML IV SCH (23:00)
[2024-03-04 03:48] VITALS: BP 148/90
--- NOTE | 2024-03-04 04:43 | NUR ---
SHIFT SUMMARY NO ACUTE EVENTS DURING THIS SHIFT. ABX INFUSED ORDERED. PT IS ABLE TO MAKE HIS NEEDS KNOWN. PLEASANT AND COOPERATIVE WITH CARE. CALL LIGHT W/I REACH. LE'S ELEVATED IN BED. BED AT LOWEST POSITION.
[2024-03-04 07:25] LABS: Hematocrit 32.8 % (37.0-53.0); Hemoglobin 10.8 g/dL (13.5-17.5); Mean Corpuscular HGB 27.8 pg (26.0-34.0); Mean Corpuscular HGB Conc 32.9 g/dL (31.5-36.5); Mean Corpuscular Volume 84 fL (80-100); Mean Platelet Volume 9.7 fL (9.1-12.4); Platelet Count 344 K/mm3 (150-400); RDW Coefficient Variation 13.5 % (11.7-14.2); RDW Standard Deviation 41.6 fL (35.1-46.3); Red Blood Cell Count 3.89 M/mm3 (4.30-5.90); White Blood Cell Count 12.34 K/mm3 (4.00-11.30)
[2024-03-04 07:27] VITALS: BP 171/92
[2024-03-04 07:57] LABS: Bun/Creatinine Ratio 20.1 (12.0-20.0); Creatinine, Blood 1.49 mg/dL (0.60-1.20); Potassium, Blood 4.7 mmol/L (3.5-5.5)
[2024-03-04] MEDS ORDERED: Polyethylene Glycol 3350 17 gm PO ONE (09:00)
[2024-03-04] MEDS ORDERED: Polyethylene Glycol 3350 17 gm PO PRN (09:00)
[2024-03-04] MEDS ORDERED: Methadone HCL 10 MG TAB PO SCH (09:00)
[2024-03-04] MEDS ORDERED: Lactated Ringer's 1,000 ML IV SCH (15:00)
[2024-03-04 15:24] VITALS: BP 138/91
[2024-03-04] MEDS ORDERED: MetFORMIN HCl 500 mg PO SCH (17:00)
--- NOTE | 2024-03-04 18:40 | NUR ---
SHIFT SUMMARY: PT A&O X4. PLEASANT AND COOPERATIVE. INDEPENDENT IN ROOM. PT C/O WORSENING PAIN THIS SHIFT. REPEAT CT COMPLETED. PT HAVING EXCESSIVE DRAINAGE FROM RLE. IV ABX INFUSED W/O COMPLICATIONS. LR INFUSING @100/HR X1 BAG. INSULIN PROVIDED PER EMAR. BLISTER ON R. INNER THIGH POPPED THIS SHIFT. CALL LIGHT IN REACH.
[2024-03-04 19:38] VITALS: BP 149/93
[2024-03-05 03:56] VITALS: BP 141/93
--- NOTE | 2024-03-05 03:58 | NUR ---
SHIFT SUMMARY NO ACUTE EVENTS DURING THIS SHIFT. HS B. PT IS A&O X4, COOPERATIVE WITH CARE. PT RESTING WELL T/O THIS SHIFT. ABX IV INFUSED ORDERED. PT DENIES PAIN DURING THIS SHIFT. BED AT THE LOWEST POSITION, CALL LIGHT WITHIN REACH. PT IS ABLE TO MAKE HIS NEEDS KNOWN, AND IS INDEPENDENT WITHIN THE HOSPITAL ROOM.
[2024-03-05 06:09] LABS: Hematocrit 33.8 % (37.0-53.0); Hemoglobin 11.3 g/dL (13.5-17.5); Mean Corpuscular HGB 28.8 pg (26.0-34.0); Mean Corpuscular HGB Conc 33.4 g/dL (31.5-36.5); Mean Corpuscular Volume 86 fL (80-100); Mean Platelet Volume 9.6 fL (9.1-12.4); Platelet Count 421 K/mm3 (150-400); RDW Coefficient Variation 13.6 % (11.7-14.2); RDW Standard Deviation 42.5 fL (35.1-46.3); Red Blood Cell Count 3.93 M/mm3 (4.30-5.90); White Blood Cell Count 12.15 K/mm3 (4.00-11.30)
[2024-03-05 06:41] LABS: Bun/Creatinine Ratio 20.2 (12.0-20.0); Calcium, Blood 9.2 mg/dL (8.5-10.1); Creatinine, Blood 1.29 mg/dL (0.60-1.20); Potassium, Blood 4.6 mmol/L (3.5-5.5)
[2024-03-05] MEDS ORDERED: GlipiZIDE 10 MG Tab PO SCH (07:30)
[2024-03-05 07:53] VITALS: BP 169/95
[2024-03-05 07:57] LABS: BAND PERCENT MAN 6 % (0-8); BASOPHILS ABSOLUTE MAN 0.12 K/mm3 (0.00-0.23); BASOPHILS PERCENT MAN 1 % (0-2); EOSINOPHILS ABSOLUTE MAN 0.48 K/mm3 (0.00-0.68); EOSINOPHILS PERCENT MAN 4 % (0-6); LYMPHOCYTES ABSOLUTE MAN 1.45 K/mm3 (0.84-5.20); LYMPHOCYTES PERCENT MAN 12 % (21-46); METAMYELOCYTE ABSOLUTE MAN 0.24 K/mm3 (0.00-0.00); METAMYELOCYTE PERCENT MAN 2 % (0-0); MONOCYTES ABSOLUTE MAN 0.97 K/mm3 (0.16-1.47); MONOCYTES PERCENT MAN 8 % (4-13); MYELOCYTE ABSOLUTE MAN 0.36 K/mm3 (0.00-0.00); MYELOCYTE PERCENT MAN 3 % (0-0); SEG NEUTROPHILS PERCENT MAN 64 % (41-73); TOTAL CELLS COUNTED 100
[2024-03-05] MEDS ORDERED: Terbinafine 250 MG Tab PO SCH (08:00)
[2024-03-05] MEDS ORDERED: Lactated Ringer's 1,000 ML IV SCH (09:40)
[2024-03-05 15:36] VITALS: BP 154/81
--- NOTE | 2024-03-05 18:23 | NUR ---
SHIFT SUMMARY: PT A&O X4. PLEASANT AND COOPERATIVE WITH CARE. INDEPENDENT IN ROOM. REDNESS IN LEG LOOKS BETTER THIS SHIFT COMPARED TO YESTERDAY. MEDICATED FOR PAIN WITH SCHEDULED METHADONE. ONE TIME BAG LR INFUSING @150/HR. IV IN RFA BAD THIS SHIFT. PG PLACED IN CARIE BY DIRECTOR OF CORPORATE RESPONSIBILITY. IV ABX INFUSED W/O COMPLICATIONS. CALL LIGHT IN REACH.
[2024-03-05 20:23] VITALS: BP 148/95
[2024-03-05 22:35] LABS: Vancomycin, Trough 8.6 ug/mL (5.0-10.0)
[2024-03-05] MEDS ORDERED: Vancomycin HCL 1,250 MG in NS 250 ML IV SCH (23:00)
--- NOTE | 2024-03-06 03:46 | NUR ---
SHIFT SUMMARY NO ACUTE EVENTS DURING THIS SHIFT. PT IS A&O X4, COOPERATIVE WITH CARE, PLEASANT. IV ABX INFUSED ORDERED. NEW POWER GLIDE @LEFT UPPER ARM WORKING WELL. HS B. PT AMBULATES INDEPENDENTLY W/I THE HOSPITAL ROOM. BED AT THE LOWEST POSITION, CALL LIGHT W/I REACH. PT IS ABLE TO MAKE HIS NEEDS KNOWN.
[2024-03-06 03:56] VITALS: BP 146/100
[2024-03-06 07:40] VITALS: BP 160/107
[2024-03-06 07:59] LABS: Hematocrit 32.8 % (37.0-53.0); Hemoglobin 10.7 g/dL (13.5-17.5); Mean Corpuscular HGB 27.9 pg (26.0-34.0); Mean Corpuscular HGB Conc 32.6 g/dL (31.5-36.5); Mean Corpuscular Volume 86 fL (80-100); Mean Platelet Volume 9.1 fL (9.1-12.4); Platelet Count 469 K/mm3 (150-400); RDW Coefficient Variation 13.5 % (11.7-14.2); RDW Standard Deviation 42.2 fL (35.1-46.3); Red Blood Cell Count 3.83 M/mm3 (4.30-5.90); White Blood Cell Count 14.38 K/mm3 (4.00-11.30)
[2024-03-06 08:45] LABS: Bun/Creatinine Ratio 17.8 (12.0-20.0); Calcium, Blood 9.5 mg/dL (8.5-10.1); Creatinine, Blood 1.01 mg/dL (0.60-1.20); Potassium, Blood 5.2 mmol/L (3.5-5.5)
[2024-03-06 09:42] LABS: BAND PERCENT MAN 3 % (0-8); BASOPHILS ABSOLUTE MAN 0.14 K/mm3 (0.00-0.23); BASOPHILS PERCENT MAN 1 % (0-2); EOSINOPHILS ABSOLUTE MAN 0.14 K/mm3 (0.00-0.68); EOSINOPHILS PERCENT MAN 1 % (0-6); LYMPHOCYTES ABSOLUTE MAN 1.58 K/mm3 (0.84-5.20); LYMPHOCYTES PERCENT MAN 11 % (21-46); METAMYELOCYTE ABSOLUTE MAN 0.43 K/mm3 (0.00-0.00); METAMYELOCYTE PERCENT MAN 3 % (0-0); MONOCYTES ABSOLUTE MAN 1.58 K/mm3 (0.16-1.47); MONOCYTES PERCENT MAN 11 % (4-13); MYELOCYTE PERCENT MAN 7 % (0-0); NEUTROPHILS ABSOLUTE MAN 9.49 K/mm3 (1.96-9.15); SEG NEUTROPHILS PERCENT MAN 63 % (41-73); TOTAL CELLS COUNTED 100
--- NOTE | 2024-03-06 16:43 | NUR ---
Patient is sitting on a chair and alert. He tells me about his childhood growing up in [place], [place] his family unit complications, his past struggles to stay on the straight and narrow and his appreciation for the life he has now. He talks about his [employer] 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 I provided therapeutic listening and prayer. Patient responded well and voiced appreciation for the visit.
--- NOTE | 2024-03-06 17:52 | NUR ---
SHIFT SUMMARY: PT A&O X4. PLEASANT AND COOPERATIVE WITH CARE. INDEPENDENT IN ROOM. NO ACUTE CHANGES THIS SHIFT. IV ABX INFUSED W/O COMPLICATIONS IN CARIE PG. PLAN FOR PT TO RECEIVE 2-3 DAYS MORE IV ABX. CALL LIGHT IN REACH. BED IN LOWEST POSITION.
[2024-03-06 20:28] VITALS: BP 152/91
[2024-03-07 04:00] VITALS: BP 173/98
--- NOTE | 2024-03-07 04:15 | NUR ---
SHIFT SUMMARY PATIENT HAD NO ACUTE CHANGES. AXOX 4 AND INDEPENDENT IN ROOM. DENIES CHEST PAIN, SOB, AND N/V. VSS/AFEBRILE. POWERGLIDE CHARISSA ARM INTACT. IV ABX INFUSED. CBG 94. COOPERATIVE WITH CARE. SLEPT MOST OF THE SHIFT. CALL LIGHT IN REACH. BED IN LOWEST POSITION. WILL CONTINUE TO MONITOR UNTIL DAY SHIFT NURSE ASSUMES CARE.
[2024-03-07] MEDS ORDERED: Losartan Potassium 25 MG Tab PO SCH (07:00)
[2024-03-07 07:40] VITALS: BP 161/96
--- NOTE | 2024-03-07 09:00 | NUR ---
pt sitting up in a chair visitor in room, pt is a/ox4, pleasant and cooperative with care, follows commands well, denies pain at this time, lungs are clear dim in bases resp even and unlabored, no cough noted, on r/a, hrr, no edema noted, ppp+2, cap refill <3 sec, vs stable, afebrile, power glide to anita site is clear and patent, btx4, abd flat soft nontender, voids without diff, skin has wound to right foot and small area to medial knee, that is open to air, dressing was changed this am per report, emili, call light in reach.
[2024-03-07 10:31] LABS: Vancomycin, Trough 17.2 ug/mL (5.0-10.0)
[2024-03-07 16:02] VITALS: BP 149/91
[2024-03-07] MEDS ORDERED: TERB250 PO (16:32)
[2024-03-07] MEDS ORDERED: BACTRIM DS TAB1 EAC6 PO (16:33)
[2024-03-07] MEDS ORDERED: AMOX-CLAV 875-1 EAC5 PO (16:34)
--- NOTE | 2024-03-07 17:03 | NUR ---
Pt has been discharged to home, iv removed intact, will f/u with wound care clinic, went over discharge instructions with him, he verbalized understanding, new meds faxed to [facility], left via ambulation with in attendence, with all his belongings.
== END 2024-03-07 17:30 | disposition home or self-care (01) | DRG 872 ==
LOC: ER 04:11 → MEDS 05:51 → ENPENDDIS 03-07 14:53 → MEDS 03-07 17:30
PROVIDERS: Family Medicine; Hospitalist; Registered Nurse; Student in an Organized Health Care Education/Training Program; ADMIT Student in an Organized Health Care Education/Training Program
DX: A41.9 Sepsis, unspecified organism (principal); N17.9 Acute kidney failure, unspecified; L03.115 Cellulitis of right lower limb; F11.20 Opioid dependence, uncomplicated; E87.20 Acidosis, unspecified; E87.1 Hypo-osmolality and hyponatremia; R65.20 Severe sepsis without septic shock; E78.5 Hyperlipidemia, unspecified; G89.29 Other chronic pain; B35.1 Tinea unguium; F25.9 Schizoaffective disorder, unspecified; E11.65 Type 2 diabetes mellitus with hyperglycemia; F17.210 Nicotine dependence, cigarettes, uncomplicated; E66.01 Morbid (severe) obesity due to excess calories; F41.9 Anxiety disorder, unspecified; K21.9 Gastro-esophageal reflux disease without esophagitis; E88.09 Other disorders of plasma-protein metabolism, not elsewhere classified; J44.9 Chronic obstructive pulmonary disease, unspecified; I10 Essential (primary) hypertension; Z98.890 Other specified postprocedural states; Z79.84 Long term (current) use of oral hypoglycemic drugs; Z79.899 Other long term (current) drug therapy; Z86.14 Personal history of Methicillin resistant Staphylococcus aureus infection; Z71.6 Tobacco abuse counseling; Z68.35 Body mass index [BMI] 35.0-35.9, adult
CPT/HCPCS: 36415; 36416; 73701; 80048; 80053; 80202; 82565; 82947; 83036; 83605; 83930; 85025; 85027; 85651; 86141; 87040; 94640; 94664; 94760; 96365; 99284-25; A9270; C1751; J0690; J1644; J1815; J2543; J3370; J7030; J7040; J7050; J7120; Q9967

== ENCOUNTER 2024-03-11 03:03 | Day surgery (SDC) | payer OTHER ==
[~2024-03-11 03:03] MED LIST changes: +AMOX-CLAV 875-1 EAC5 PO; +DICLOFENAC PO; +GLIP10 PO; +LOSA25 PO; +TERB250 PO
[2024-03-11] MEDS ORDERED: Lidocaine HCl 4% Topical Soln 50 ML BTL ONE (13:24)
== END 2024-03-11 23:00 | disposition home or self-care (01) ==
LOC: WOUND 03:03
DX: L03.115 Cellulitis of right lower limb (principal); L03.031 Cellulitis of right toe; E11.65 Type 2 diabetes mellitus with hyperglycemia; Z88.8 Allergy status to other drugs, medicaments and biological substances; I10 Essential (primary) hypertension
CPT/HCPCS: G0463

== ENCOUNTER 2024-03-19 01:22 | Day surgery (SDC) | payer OTHER | END 2024-03-19 23:00 | disposition home or self-care (01) | LOC: WOUND 01:22 | DX: L03.115 Cellulitis of right lower limb (principal); E11.65 Type 2 diabetes mellitus with hyperglycemia ==

== ENCOUNTER 2024-03-25 00:07 | Day surgery (SDC) | payer OTHER ==
[2024-03-25] MEDS ORDERED: Lidocaine HCl 4% Cream 5 GM ONE (08:04)
== END 2024-03-25 22:54 | disposition home or self-care (01) ==
LOC: WOUND 00:07
DX: L03.115 Cellulitis of right lower limb (principal); L03.031 Cellulitis of right toe; I10 Essential (primary) hypertension; E11.65 Type 2 diabetes mellitus with hyperglycemia
CPT/HCPCS: A9270; G0463

== ENCOUNTER 2024-04-01 03:47 | Day surgery (SDC) | payer OTHER | END 2024-04-01 23:00 | disposition home or self-care (01) | LOC: WOUND 03:47 | DX: L03.115 Cellulitis of right lower limb (principal); L03.031 Cellulitis of right toe; I10 Essential (primary) hypertension; E11.65 Type 2 diabetes mellitus with hyperglycemia | CPT/HCPCS: G0463 ==

== ENCOUNTER 2024-04-15 02:28 | Day surgery (SDC) | payer OTHER | END 2024-04-15 23:02 | disposition home or self-care (01) | LOC: WOUND 02:28 | DX: L03.115 Cellulitis of right lower limb (principal); E11.622 Type 2 diabetes mellitus with other skin ulcer; E11.621 Type 2 diabetes mellitus with foot ulcer; E11.65 Type 2 diabetes mellitus with hyperglycemia | CPT/HCPCS: G0463 ==

== ENCOUNTER 2024-04-22 08:00 | Day surgery (SDC) | payer OTHER | END 2024-04-24 23:00 | disposition home or self-care (01) | LOC: WOUND 08:00 | DX: E11.622 Type 2 diabetes mellitus with other skin ulcer (principal); E11.621 Type 2 diabetes mellitus with foot ulcer; E11.65 Type 2 diabetes mellitus with hyperglycemia; L03.115 Cellulitis of right lower limb | CPT/HCPCS: G0463 ==

== ENCOUNTER 2024-07-23 06:37 | Inpatient (IN) | payer OTHER ==
[~2024-07-23] VITALS: Ht 188 cm; Wt 114.1 kg
[2024-07-23] MEDS ORDERED: Ondansetron HCl 2 MG / ML 2ML Vial IV ONE ×2 (06:55→07:35)
[2024-07-23] MEDS ORDERED: Albuterol 2.5 MG/3 ML VIAL INH SCH (06:55)
[2024-07-23] MEDS ORDERED: MethylPREDNISolone Sod Succ 125 MG Vial IV ONE (06:55)
[2024-07-23 07:09] LABS: Base Excess Venous 2.6 mmol/L; Bicarbonate Venous 25.5 mmol/L (24.0-30.0); PCO2 Venous 61.4 mmHg (38-42); pH Blood Venous 7.29 (7.34-7.37)
[2024-07-23 07:11] LABS: BASOPHILS ABSOLUTE AUTO 0.12 K/mm3 (0.00-0.23); BASOPHILS PERCENT AUTO 1 % (0-2); EOSINOPHILS PERCENT AUTO 0 % (0-6); Hematocrit 37.5 % (37.0-53.0); Hemoglobin 12.3 g/dL (13.5-17.5); IMMATURE GRAN ABSOLUTE AUTO 0.16 K/mm3 (0.00-0.10); IMMATURE GRAN PERCENT AUTO 1 % (0-1); LYMPHOCYTES PERCENT AUTO 8 % (21-46); MONOCYTES ABSOLUTE AUTO 1.97 K/mm3 (0.16-1.47); MONOCYTES PERCENT AUTO 10 % (4-13); Mean Corpuscular HGB 28.6 pg (26.0-34.0); Mean Corpuscular HGB Conc 32.8 g/dL (31.5-36.5); Mean Corpuscular Volume 87 fL (80-100); Mean Platelet Volume 9.7 fL (9.1-12.4); NEUTROPHILS ABSOLUTE AUTO 16.52 K/mm3 (1.96-9.15); NEUTROPHILS PERCENT AUTO 81 % (41-73); NRBC ABSOLUTE 0.02 K/mm3 (0.00-0.02); NRBC Auto 0.1 /100 WBC (0.0-0.2); Platelet Count 343 K/mm3 (150-400); RDW Coefficient Variation 13.2 % (11.7-14.2); RDW Standard Deviation 41.9 fL (35.1-46.3); White Blood Cell Count 20.37 K/mm3 (4.00-11.30)
[2024-07-23] MEDS ORDERED: Naloxone HCl 0.4MG / ML 1ML Vial IV ONE ×2 (07:30→08:05)
[2024-07-23 07:31] LABS: Albumin, Blood 3.2 g/dL (3.4-5.0); Albumin/Globulin Ratio 0.6 (0.8-1.8); Bilirubin, Total 0.3 mg/dL (0.1-1.0); Bun/Creatinine Ratio 33.4 (12.0-20.0); Calcium, Blood 9.6 mg/dL (8.5-10.1); Creatinine, Blood 0.96 mg/dL (0.60-1.20); Globulin, Blood 5.8 g/dL (2.2-4.0); Potassium, Blood 4.6 mmol/L (3.5-5.5)
[2024-07-23] MEDS ORDERED: [UNRECOGNIZED DRUG - CODE] PO (07:42)
[2024-07-23] MEDS ORDERED: GUANFACINE HCL2 M2 PO (07:43)
[2024-07-23] MEDS ORDERED: LOSARTAN POTASS25 M2 PO (07:43)
[2024-07-23] MEDS ORDERED: METFORMIN HCL500 M3 PO (07:43)
[2024-07-23] MEDS ORDERED: Glucotrol Xl10 MG PO (07:43)
[2024-07-23] MEDS ORDERED: Diclofenac Sodi50 MG PO (07:43)
[2024-07-23 07:53] LABS: Influenza A, PCR NEGATIVE (NEGATIVE); Influenza B, PCR NEGATIVE (NEGATIVE); Resp Syncytial Virus, PCR NEGATIVE (NEGATIVE); SARS-Cov-2 (COVID-19) PCR, MMC NEGATIVE (NEGATIVE)
[2024-07-23] MEDS ORDERED: NS 1,000 ML IV SCH (08:25)
[2024-07-23] MEDS ORDERED: Azithromycin 500 MG in NS 250 ML IV ONE (08:25)
[2024-07-23] MEDS ORDERED: CefTRIAXone Sodium 1,000 MG in NS 100 ML IV ONE (08:25)
[2024-07-23] MEDS ORDERED: FLU VACC TS2024-25(6MOS UP)/PF 45 MCG/0.5 ML SYRINGE IM SCH (09:00)
[2024-07-23] MEDS ORDERED: Naloxone HCl 0.4MG / ML 1ML Vial IV STA (09:49)
[2024-07-23] MEDS ORDERED: Naloxone HCl 0.4MG / ML 1ML Vial IV PRN (10:00)
[2024-07-23 10:20] LABS: U Amphetamine Screen Not Detected; U Barbituate Screen Not Detected; U Benzodiazapine Screen Not Detected; U Buprenorphine Screen Not Detected; U Cannabinoids Screen Not Detected; U Cocaine Screen Not Detected; U Methadone Screen DETECTED; U Methamphetamine Screen Not Detected; U Opiates Screen Not Detected; U Oxycodone Screen Not Detected; U Phencyclidine Screen Not Detected
[2024-07-23] MEDS ORDERED: Guaifenesin/Dextromethorphan Syrup 5 ML UDC PO PRN (14:05)
[2024-07-23] MEDS ORDERED: Ipratropium/Albuterol SulF 2.5-0.5MG/3 ML Amp INH SCH (14:05)
[2024-07-23 14:20] VITALS: BP 175/102
[2024-07-23] MEDS ORDERED: Insulin Human Lispro 100 Units/ML 3ML Syringe SC SCH (14:22)
[2024-07-23 14:37] LABS: Base Excess Venous 6.5 mmol/L; Bicarbonate Venous 28.2 mmol/L (24.0-30.0); PCO2 Venous 58.5 mmHg (38-42); pH Blood Venous 7.35 (7.34-7.37)
--- NOTE | 2024-07-23 14:40 | NUR ---
ADMISSION: PT ARRIVED TO PCU 4 @1413 VIA GURNEY. PT ABLE TO STAND AND TRANSFER TO HOSPITAL BED WITH ONE PERSON ASSIST. ALERT AND ORIENTED X3, ABLE TO FOLLOW COMMANDS AND MAKE NEEDS KNOWN, FORGETFUL AT TIMES, POOR HISTORIAN. STRENGTH WEAK, EQUAL BILATERALLY. PT HYPERTENSIVE SYS >170. HR SR 90'S. AFEBRILE. SPO2 >90% ON 10L NC, RA AT BASELINE. LUNG SOUNDS COARSE, PT DYSPNEIC WITH EXCERTION. AFEBRILE. ABD DISTENDED, BOWEL SOUNDS +, PT DENIES PAIN. +2 EDEMA NOTED IN BLE. PT STATES >20 LB WEIGHT LOSS IN 5 DAYS. PT ORIENTED TO ROOM AND CALL LIGHT SYSTEM. BED IN LOW, CALL LIGHT IN REACH, WILL REPORT TO ONCOMING RN.
[2024-07-23] MEDS ORDERED: Insulin Glargine-Yfgn 100 Unit/mL 3 ML SYR SC STA (16:21)
[2024-07-23 16:36] VITALS: BP 142/87
[2024-07-23] MEDS ORDERED: MetFORMIN HCl 500 mg PO SCH (17:00)
--- NOTE | 2024-07-23 17:15 | NUR ---
SHIFT SUMMARY: PT WITH NO ACUTE CHANGES SINCE ADMISSION. CBG >400. MD NOTIFIED, NEW ORDERS RECEIVED, SEE EMAR. PT ABLE TO TOLERATE BIPAP FOR SMALL INCREMENTS THIS AFTERNOON. BED IN LOW, CALL LIGHT IN REACH, WILL REPORT TO ONCOMING RN.
[2024-07-23 19:52] VITALS: BP 168/95
[2024-07-23] MEDS ORDERED: Ibuprofen 400 MG Tab PO PRN (20:10)
[2024-07-23] MEDS ORDERED: Acetaminophen 325 MG TABLET PO PRN (20:10)
[2024-07-23] MEDS ORDERED: QUEtiapine Fumarate 200 MG Tab PO SCH (21:00)
[2024-07-23 23:36] VITALS: BP 115/71
[2024-07-24] VITALS (7 sets, daily range): BP systolic 130–143; BP diastolic 83–95
[2024-07-24 03:46] LABS: BASOPHILS ABSOLUTE AUTO 0.07 K/mm3 (0.00-0.23); BASOPHILS PERCENT AUTO 0 % (0-2); EOSINOPHILS ABSOLUTE AUTO 0.01 K/mm3 (0.00-0.68); EOSINOPHILS PERCENT AUTO 0 % (0-6); Hematocrit 34.7 % (37.0-53.0); Hemoglobin 11.2 g/dL (13.5-17.5); IMMATURE GRAN ABSOLUTE AUTO 0.25 K/mm3 (0.00-0.10); IMMATURE GRAN PERCENT AUTO 2 % (0-1); LYMPHOCYTES ABSOLUTE AUTO 2.75 K/mm3 (0.84-5.20); LYMPHOCYTES PERCENT AUTO 16 % (21-46); MONOCYTES ABSOLUTE AUTO 1.58 K/mm3 (0.16-1.47); MONOCYTES PERCENT AUTO 9 % (4-13); Mean Corpuscular HGB 28.4 pg (26.0-34.0); Mean Corpuscular HGB Conc 32.3 g/dL (31.5-36.5); Mean Corpuscular Volume 88 fL (80-100); Mean Platelet Volume 9.3 fL (9.1-12.4); NEUTROPHILS ABSOLUTE AUTO 12.16 K/mm3 (1.96-9.15); NEUTROPHILS PERCENT AUTO 72 % (41-73); NRBC ABSOLUTE 0.02 K/mm3 (0.00-0.02); NRBC Auto 0.1 /100 WBC (0.0-0.2); Platelet Count 338 K/mm3 (150-400); RDW Coefficient Variation 13.1 % (11.7-14.2); RDW Standard Deviation 42.1 fL (35.1-46.3); Red Blood Cell Count 3.95 M/mm3 (4.30-5.90); White Blood Cell Count 16.82 K/mm3 (4.00-11.30)
[2024-07-24 04:09] LABS: Bun/Creatinine Ratio 36.9 (12.0-20.0); Creatinine, Blood 0.76 mg/dL (0.60-1.20); Potassium, Blood 4.5 mmol/L (3.5-5.5)
--- NOTE | 2024-07-24 05:52 | NUR ---
SHIFT SUMMARY PT IS A&O X4, PT OBEYS COMMANDS, MOVING ALL EXTREMITIES EQUALLY WITH PURPOSE, REPOSITIONING SELF IN BED, CALLS APPROPRIATELY, ABLE TO MAKE NEEDS KNOWN. CONTINUOUS SPO2, SPO2 GREATER 90% BIPAP 12/6/35% T/O MOST OF THIS SHIFT OR ON 7L O2 VIA NC, PT HAVING OCCASIONAL PRODUCTIVE COUGH, NO SIGNS OF RESPIRATORY DISTRESS OBSERVED BY THIS RN. CONTINUOUS TELE MONITORING, SINUS 70-80 S T/O THIS SHIFT, PT DENIES CHEST P/P, PULSES PRESENT T/O, BP STABLE WITH MAP GREATER THAN 65. BOWEL TONES PRESENT IN ALL 4Q, PT DENIES FEELINGS OF CONSTIPATION. PT USING URINAL IND. PT REPORTED PAIN TO COOK DESSERT AT START OF THIS SHIFT, WHEN THIS RN WENT TO ASSESS PTS PAIN PT DENIES HAVING ANY PAIN. BED LOWEST POSITION, CALL LIGHT IN REACH, AWAITING TO GIVE REPORT TO ONCOMING RN.
[2024-07-24] MEDS ORDERED: Insulin NPH 10 Unit/0.1ML (Single Dose) SC ONE ×2 (08:00→11:20)
[2024-07-24] MEDS ORDERED: Insulin NPH 100 Unit / ML 10ML Vial SC ONE ×2 (08:10→12:15)
[2024-07-24] MEDS ORDERED: Methadone HCL 10 MG TAB PO SCH (09:00)
[2024-07-24] MEDS ORDERED: Losartan Potassium 25 MG Tab PO SCH (09:00)
[2024-07-24] MEDS ORDERED: Enoxaparin 40 MG/0.4 ML SYR SC SCH (09:00)
[2024-07-24] MEDS ORDERED: CefTRIAXone Sodium 1,000 MG in NS 100 ML IV SCH (09:00)
[2024-07-24] MEDS ORDERED: Azithromycin 250 MG Tab PO SCH (09:00)
[2024-07-24] MEDS ORDERED: PredniSONE 20 MG Tab PO SCH (09:00)
[2024-07-24] MEDS ORDERED: GlipiZIDE 5 MG TabCR PO SCH (09:00)
--- NOTE | 2024-07-24 13:25 | NUR ---
UPDATE PT W/ INCREASED CBG. CALL PLACED TO MD LUTZ. MD LUTZ W/ ONE TIME NPH ORDER, SEE EMAR.
[2024-07-24] MEDS ORDERED: Nicotine 21 MG PATCH TOP SCH (16:20)
--- NOTE | 2024-07-24 18:17 | NUR ---
PATIENT SUMMURY: PATIENT IS CURRENTLY ON 7 LITERS VIA NASAL CANULA AND SATURATION ABOVE 90'S. EXHIBITED LABOURDED RESPIRATION WITH ACTIVITY OF DAILY LEAVING THIS MORNING. PATIENT EDUCATED ABOUT THE USE OF INCENTIVE SPIROMETER AND WAS ABLE TO PERFORM RETURN DEMONSTRATION. REQUESTED NICOTENE PATCH. PHYSICIAN NOTIFIED, AND PATCH ADMINISTERED. CURRENTLY RESTING WITH NO SIGNS OF DISTRESS.
--- NOTE | 2024-07-24 19:26 | NUR ---
[place] of Care: Report received from day shift RN. Patient sitting up in bed. No complaints of SOB or pain. Able to make needs known. Continue Care.
[2024-07-24] MEDS ORDERED: Famotidine 20 MG Tab PO SCH (21:00)
[2024-07-24] MEDS ORDERED: Insulin Human Lispro 100 Units/ML 3ML Syringe SC SCH (21:00)
[2024-07-24] MEDS ORDERED: HyDROXyzine HCl 25 MG Tab PO SCH (21:00)
[2024-07-24] MEDS ORDERED: Insulin Glargine-Yfgn 100 Unit/mL 3 ML SYR SC SCH (21:00)
[2024-07-25 04:05] VITALS: BP 142/95
--- NOTE | 2024-07-25 05:48 | NUR ---
EOS Note: Patient appeared to have slept well last night. multimedia authoring specialist with bipap and small parts assembler with NC 7Liters. Earlier in shift patient had a bloody nose from the dry air of the nasal cannula blowing up his nose. Added hunidity to his nasal cannula. No complaints of pain. Blood sugar elevated at start of shift. Updated MD purification operator. New orders received. Continue Care.
[2024-07-25 09:03] VITALS: BP 149/92
[2024-07-25] MEDS ORDERED: Insulin NPH 10 Unit/0.1ML (Single Dose) SC STA (12:36)
[2024-07-25 13:00] VITALS: BP 146/94
[2024-07-25] MEDS ORDERED: Insulin NPH 100 Unit / ML 10ML Vial SC STA (13:44)
--- NOTE | 2024-07-25 17:44 | NUR ---
PATIENT SUMMURY: ALERT AND ORIENTED x 4. MONITOR SHOWS NORMAL SINUS WITH HEART RATE IN THE 90'S. OXYGEN SATURATION ABOVE 90 WITH 2 LITERS NC. AMBULATED 400 FEET AND REPORTED FEELING BETTER. BLOOD GLUCOSE ELEVATED. PHYSICIAN NOTIFIED WITH NEW ORDERS.
--- NOTE | 2024-07-25 19:18 | NUR ---
[place] of Care: Report received from Day nurse. Patient is up and ambulating in room. No complaints of pain or shortness of breath. Continue care.
[2024-07-25 19:47] VITALS: BP 146/104
[2024-07-25] MEDS ORDERED: Insulin Glargine-Yfgn 100 Unit/mL 3 ML SYR SC SCH (21:00)
[2024-07-25 23:48] VITALS: BP 149/80
[2024-07-26 03:12] VITALS: BP 164/85
[2024-07-26 03:55] LABS: Hematocrit 35.3 % (37.0-53.0); Hemoglobin 11.6 g/dL (13.5-17.5); Mean Corpuscular HGB 28.3 pg (26.0-34.0); Mean Corpuscular HGB Conc 32.9 g/dL (31.5-36.5); Mean Corpuscular Volume 86 fL (80-100); Mean Platelet Volume 8.9 fL (9.1-12.4); Platelet Count 363 K/mm3 (150-400); RDW Coefficient Variation 12.6 % (11.7-14.2); RDW Standard Deviation 39.7 fL (35.1-46.3); White Blood Cell Count 13.15 K/mm3 (4.00-11.30)
[2024-07-26 04:23] LABS: Bun/Creatinine Ratio 23.9 (12.0-20.0); Calcium, Blood 9.6 mg/dL (8.5-10.1); Creatinine, Blood 0.84 mg/dL (0.60-1.20); Potassium, Blood 3.9 mmol/L (3.5-5.5)
--- NOTE | 2024-07-26 05:23 | NUR ---
EOS Note: No new issues tonight. Resting with 1-2 liters of O2 per NC. Did not use the bipap tonight. Up to bathroom with minamal assist. Appeared to have slept most of night. Continue Care.
[2024-07-26 08:56] VITALS: BP 137/77
[2024-07-26 11:04] VITALS: BP 145/87
[2024-07-26] MEDS ORDERED: Vancomycin HCL 2,500 MG in NS 500 ML IV SCH (12:00)
--- NOTE | 2024-07-26 14:57 | NUR ---
Pt. is awake and sitting in a chair when he welcomed my visit. Pt. verbalized that he remembered grid operator Dustin from a previous visit. Facilitated a lengthy life review and considered matters of lindsey and belief. Pt. dislpayed evidence of being engaged and aware, as well as being encouraged with this grid operator's presence. Prayed with Pt. Pt. verbalized gratitidue for the spiritual care visit.
--- NOTE | 2024-07-26 15:14 | NUR ---
TRANSFER NOTE: PATIENT NOW MEDICAL. NO TELLIMETRY. ALERT AND ORIENTED x 4. ON NASAL CANULA AT 2 LITERS WITH OXYGEN SATURATION ABOVE 90. TRANSFERED TO MEDICAL UNIT AND REPORT GIVEN TO NURSE.
[2024-07-26 19:33] VITALS: BP 138/93
[2024-07-26] MEDS ORDERED: NS 250 ML IV PRN (21:00)
[2024-07-27] MEDS ORDERED: Vancomycin HCL 1,750 MG in NS 500 ML IV SCH
[2024-07-27 03:56] VITALS: BP 160/87
[2024-07-27 07:20] VITALS: BP 153/88
[2024-07-27] MEDS ORDERED: ALBU90OI INH (10:52)
[2024-07-27] MEDS ORDERED: NICO21TP TOP (11:01)
[2024-07-27] MEDS ORDERED: ROBITUSSIN100 MG/5 M PO (11:01)
[2024-07-27] MEDS ORDERED: VISBIOME 112.51 EACH PO (11:02)
[2024-07-27] MEDS ORDERED: SULTRIDS PO (11:02)
--- NOTE | 2024-07-27 14:26 | NUR ---
DISCHARGE SUMMARY PATIENT DISCHARGED HOME WITH S/O TO DRIVE. DISCHARGE PACKET GIVEN AND REVIEWED, QUESTIONS ANSWERED, VERBALIZED UNDERSTANDING. ABX FAXED TO [facility], THE REMAINDER FAXED TO [facility] FOR WEEKEND AVAILABILITY. IV REMOVED WITHOUT COMPLICATION PRIOR TO DISCHARGE.
== END 2024-07-27 11:42 | disposition hospice, home (50) | DRG 871 ==
LOC: ER 06:37 → ERHOLD 08:57 → PCU 14:08 → MEDS 07-26 16:41
PROVIDERS: Emergency Medicine; ADMIT Internal Medicine
PROC: 3E03329 Introduction of Other Anti-infective into Peripheral Vein, Percutaneous Approach (ICD-10-PCS; principal; 2024-07-23)
PROC: 5A09457 Assistance with Respiratory Ventilation, 24-96 Consecutive Hours, Continuous Positive Airway Pressure (ICD-10-PCS; 2024-07-23)
PROC: 5A0935A Assistance with Respiratory Ventilation, Less than 24 Consecutive Hours, High Flow/Velocity Cannula (ICD-10-PCS; 2024-07-23)
DX: A41.9 Sepsis, unspecified organism (principal); J18.9 Pneumonia, unspecified organism; J96.01 Acute respiratory failure with hypoxia; J96.02 Acute respiratory failure with hypercapnia; J44.0 Chronic obstructive pulmonary disease with (acute) lower respiratory infection; J44.1 Chronic obstructive pulmonary disease with (acute) exacerbation; F11.20 Opioid dependence, uncomplicated; D64.9 Anemia, unspecified; E11.65 Type 2 diabetes mellitus with hyperglycemia; F17.210 Nicotine dependence, cigarettes, uncomplicated; R65.20 Severe sepsis without septic shock; F25.9 Schizoaffective disorder, unspecified; T40.2X1A Poisoning by other opioids, accidental (unintentional), initial encounter; F41.9 Anxiety disorder, unspecified; K21.9 Gastro-esophageal reflux disease without esophagitis; E78.5 Hyperlipidemia, unspecified; I10 Essential (primary) hypertension; G89.29 Other chronic pain; Z99.81 Dependence on supplemental oxygen; Z71.6 Tobacco abuse counseling; Z98.890 Other specified postprocedural states; Z79.84 Long term (current) use of oral hypoglycemic drugs; Z79.899 Other long term (current) drug therapy; B95.62 Methicillin resistant Staphylococcus aureus infection as the cause of diseases classified elsewhere
CPT/HCPCS: 0241U; 36415; 71045; 80048; 80053; 80320; 82375; 82803; 82947; 83036; 83605; 83880; 84484; 85025; 85027; 87040; 87070; 87077; 87186; 87205; 93005; 93010; 94640; 94644; 94660; 94664; 94760; 94762; 96365; 96375; 96376; 99285-25; A9270; J0456; J0696; J1650; J1815; J2310; J2405; J2919; J3370; J7030; J7040; J7050; J7512

== ENCOUNTER 2025-01-22 17:32 | Inpatient (IN) | payer OTHER ==
[~2025-01-22] VITALS: Ht 182.9 cm; Wt 99.3 kg
[~2025-01-22 17:32] MED LIST changes: +GUANFACINE HCL2 M2 PO; +Glucotrol Xl10 MG PO; +LOSARTAN POTASS25 M2 PO; +METFORMIN HCL500 M3 PO; +ROBITUSSIN100 MG/5 M PO; +[UNRECOGNIZED DRUG - CODE] PO
[2025-01-22] MEDS ORDERED: NS 1,000 ML IV SCH (17:45)
[2025-01-22] MEDS ORDERED: Ondansetron HCl 2 MG / ML 2ML Vial IV ONE (17:50)
[2025-01-22 18:46] LABS: pH Blood Venous 7.50 (7.34-7.37)
[2025-01-22 18:53] LABS: BASOPHILS ABSOLUTE AUTO 0.11 K/mm3 (0.00-0.23); BASOPHILS PERCENT AUTO 0 % (0-2); EOSINOPHILS ABSOLUTE AUTO 0.08 K/mm3 (0.00-0.68); EOSINOPHILS PERCENT AUTO 0 % (0-6); Hematocrit 35.1 % (37.0-53.0); Hemoglobin 12.3 g/dL (13.5-17.5); IMMATURE GRAN ABSOLUTE AUTO 0.31 K/mm3 (0.00-0.10); IMMATURE GRAN PERCENT AUTO 1 % (0-1); LYMPHOCYTES ABSOLUTE AUTO 0.87 K/mm3 (0.84-5.20); LYMPHOCYTES PERCENT AUTO 2 % (21-46); MONOCYTES ABSOLUTE AUTO 0.85 K/mm3 (0.16-1.47); MONOCYTES PERCENT AUTO 2 % (4-13); Mean Corpuscular HGB Conc 35.0 g/dL (31.5-36.5); Mean Corpuscular Volume 84 fL (80-100); NEUTROPHILS ABSOLUTE AUTO 35.91 K/mm3 (1.96-9.15); NEUTROPHILS PERCENT AUTO 94 % (41-73); NRBC ABSOLUTE 0.00 K/mm3 (0.00-0.02); NRBC Auto 0.0 /100 WBC (0.0-0.2); Platelet Count 321 K/mm3 (150-400); RDW Coefficient Variation 13.4 % (11.7-14.2); RDW Standard Deviation 40.3 fL (35.1-46.3)
[2025-01-22 19:16] LABS: Alanine Aminotransfer (ALT/SGP 28.0 U/L (12-78); Albumin, Blood 3.5 g/dL (3.4-5.0); Albumin/Globulin Ratio 0.8 (0.8-1.8); Anion Gap 7.0 mmol/L (3-11); Aspartate Aminotrans (AST/SGOT 13.0 U/L (12-37); Bilirubin, Total 0.5 mg/dL (0.1-1.0); Blood Urea Nitrogen 16.0 mg/dL (8-24); CO2, Blood 26.0 mmol/L (21-32); Calcium, Blood 9.4 mg/dL (8.5-10.1); Chloride, Blood 103.0 mmol/L (98-108); Creatinine, Blood 0.96 mg/dL (0.60-1.20); Globulin, Blood 4.3 g/dL (2.2-4.0); Glucose, Blood 188.0 mg/dL (70-99); Potassium, Blood 4.0 mmol/L (3.5-5.5); Sodium, Blood 132.0 mmol/L (136-145); Total Protein, Blood 7.8 g/dL (6.4-8.2)
[2025-01-22] MEDS ORDERED: FentaNYL Citrate 50 MCG/ML 2 ML Injection IV PRN (23:30)
[2025-01-22] MEDS ORDERED: NS 1,000 ML IV ONE (23:30)
[2025-01-22] MEDS ORDERED: Vancomycin (Pharmacy Consult) IV SCH (23:30)
[2025-01-23] MEDS ORDERED: Ampicillin Sod/Sulbactam Sod 3 GM in NS 100 ML IV SCH
[2025-01-23] MEDS ORDERED: Ondansetron HCl 2 MG / ML 2ML Vial IV PRN (00:05)
[2025-01-23] MEDS ORDERED: Vancomycin HCL 2,500 MG in NS 500 ML IV ONE (00:25)
[2025-01-23] MEDS ORDERED: Albuterol HFA200 ACT/6.7 GM INH INH PRN (00:35)
[2025-01-23] MEDS ORDERED: Insulin Human Lispro 100 Units/ML 3ML Syringe SC SCH (07:30)
[2025-01-23 07:32] LABS: Source, Urine Clean Catch
[2025-01-23 07:36] LABS: Bilirubin, Urine Neg (Neg); Color, Urine Yellow (P-Yellow); Glucose Qualitative, Urine Neg (Neg); Ketones, Urine Neg (Neg); Leukocyte Esterase, Urine Neg (Neg); Protein, Urine 1+ (Neg); Specific Gravity, Urine 1.020 (1.003-1.022); Urobilinogen, Urine NORM (Normal)
[2025-01-23 08:15] LABS: BASOPHILS ABSOLUTE AUTO 0.07 K/mm3 (0.00-0.23); BASOPHILS PERCENT AUTO 0 % (0-2); EOSINOPHILS ABSOLUTE AUTO 0.01 K/mm3 (0.00-0.68); EOSINOPHILS PERCENT AUTO 0 % (0-6); Hematocrit 33.7 % (37.0-53.0); Hemoglobin 11.5 g/dL (13.5-17.5); IMMATURE GRAN ABSOLUTE AUTO 0.11 K/mm3 (0.00-0.10); IMMATURE GRAN PERCENT AUTO 1 % (0-1); LYMPHOCYTES ABSOLUTE AUTO 1.23 K/mm3 (0.84-5.20); LYMPHOCYTES PERCENT AUTO 6 % (21-46); MONOCYTES ABSOLUTE AUTO 0.84 K/mm3 (0.16-1.47); MONOCYTES PERCENT AUTO 4 % (4-13); Mean Corpuscular HGB Conc 34.1 g/dL (31.5-36.5); Mean Corpuscular Volume 86 fL (80-100); NEUTROPHILS ABSOLUTE AUTO 17.18 K/mm3 (1.96-9.15); NEUTROPHILS PERCENT AUTO 88 % (41-73); NRBC ABSOLUTE 0.00 K/mm3 (0.00-0.02); NRBC Auto 0.0 /100 WBC (0.0-0.2); Platelet Count 265 K/mm3 (150-400); RDW Coefficient Variation 13.5 % (11.7-14.2); RDW Standard Deviation 41.7 fL (35.1-46.3)
[2025-01-23 08:47] LABS: Alanine Aminotransfer (ALT/SGP 22.0 U/L (12-78); Albumin, Blood 2.7 g/dL (3.4-5.0); Albumin/Globulin Ratio 0.7 (0.8-1.8); Anion Gap 5.0 mmol/L (3-11); Aspartate Aminotrans (AST/SGOT 10.0 U/L (12-37); Bilirubin, Total 0.4 mg/dL (0.1-1.0); Blood Urea Nitrogen 14.0 mg/dL (8-24); CO2, Blood 27.0 mmol/L (21-32); Calcium, Blood 8.2 mg/dL (8.5-10.1); Chloride, Blood 109.0 mmol/L (98-108); Creatinine, Blood 0.96 mg/dL (0.60-1.20); Globulin, Blood 3.9 g/dL (2.2-4.0); Glucose, Blood 127.0 mg/dL (70-99); Potassium, Blood 3.6 mmol/L (3.5-5.5); Sodium, Blood 137.0 mmol/L (136-145); Total Protein, Blood 6.6 g/dL (6.4-8.2)
[2025-01-23] MEDS ORDERED: Enoxaparin 40 MG/0.4 ML SYR SC SCH (09:00)
[2025-01-23] MEDS ORDERED: Lactobacil 2-S.Thermo-Bifido 1 1 Cap PO SCH (09:00)
[2025-01-23] MEDS ORDERED: HYDPAM50 (11:53)
[2025-01-23 12:06] VITALS: BP 102/71
[2025-01-23 14:58] VITALS: BP 101/79
--- NOTE | 2025-01-23 18:06 | NUR ---
PATIENT TO ROOM FROM ER, ORIENTATED TO CALL LIGHT AND ROOM. PATIENT WISHES TO WEAR PERSONAL CLOTHERS INSTEAD OF HOSPITAL GOWN. PATIENT GIVEN MEDICATIONS PRESCRIBED AND HAS NO QUESTIONS OR CONCERNS. ADMISSION DONE ALONG WITH MEDICATION VERIFICATION. NO CONCERNS
[2025-01-23 20:26] VITALS: BP 113/74
[2025-01-23 23:53] VITALS: BP 122/73
[2025-01-24 01:15] LABS: Hematocrit 30.1 % (37.0-53.0); Hemoglobin 10.0 g/dL (13.5-17.5); Mean Corpuscular HGB Conc 33.2 g/dL (31.5-36.5); Mean Corpuscular Volume 88 fL (80-100); NRBC ABSOLUTE 0.00 K/mm3 (0.00-0.02); NRBC Auto 0.0 /100 WBC (0.0-0.2); Platelet Count 224 K/mm3 (150-400); RDW Coefficient Variation 13.7 % (11.7-14.2); RDW Standard Deviation 43.0 fL (35.1-46.3)
[2025-01-24 01:36] LABS: Alanine Aminotransfer (ALT/SGP 23 U/L (12-78); Albumin, Blood 2.6 g/dL (3.4-5.0); Albumin/Globulin Ratio 0.7 (0.8-1.8); Anion Gap 7 mmol/L (3-11); Aspartate Aminotrans (AST/SGOT 14 U/L (12-37); Bilirubin, Total 0.2 mg/dL (0.1-1.0); Blood Urea Nitrogen 20 mg/dL (8-24); CO2, Blood 25 mmol/L (21-32); Calcium, Blood 7.6 mg/dL (8.5-10.1); Chloride, Blood 108 mmol/L (98-108); Creatinine, Blood 0.96 mg/dL (0.60-1.20); Globulin, Blood 3.7 g/dL (2.2-4.0); Glucose, Blood 162 mg/dL (70-99); Potassium, Blood 3.7 mmol/L (3.5-5.5); Sodium, Blood 136 mmol/L (136-145); Total Protein, Blood 6.3 g/dL (6.4-8.2); Vancomycin, Trough 12.6 ug/mL (5.0-10.0)
[2025-01-24 04:12] VITALS: BP 112/75
--- NOTE | 2025-01-24 04:26 | NUR ---
SHIFT SUMMARY PT ALERT ORIENTED X 4 ABLE TO VERBALIZE NEEDS GETS UP AD JOAQUIN IN THE ROOM AND AMBULATES TO THE BATHROOM. RLE REMAINS RED AND WARM TO TOUCH. REMAINS ON VANCO AND UNASYN ORDERED FOR CELLULITIS OF RLE. HE HAS A HX OF ANXIETY AND GETS VERY JUMPY WHEN WOKEN UP. HES ALSO HERE FOR GASTROENTERITIS. NO C/O ABD PAIN OR N/V OR LOOSE STOOLS. STOOL PCR IS PENDING BUT HE HAS HAD NO STOOLS. FS DONE AC AND HS WAS 205. RESTING IN BED AT THIS TIME WITH CALL LIGHT IN REACH
[2025-01-24 07:17] VITALS: BP 112/73
[2025-01-24] MEDS ORDERED: GUANFACINE HCL2 MG PO (09:28)
[2025-01-24 10:52] VITALS: BP 130/86
[2025-01-24 15:47] VITALS: BP 149/78
--- NOTE | 2025-01-24 18:04 | NUR ---
PATIENT A/OX4 UP WALKING IN HALLS TODAY INDEPENDENTLY. VSS, ON RA. TELEMETRY D/C'D. PATIENT GIVEN SCHEDULED METHADONE THIS AM AND HAS NOT NEEDED ANYTHING FOR BREAKTHROUGH PAIN. REDNESS TO RLE RECEEDING FROM ORIGINAL TRACING ON ADMIT. CONTINUES ON VANCO AND UNASYN. ACHS BLOOD SUGARS, COVERAGE PER SLIDING SCALE. PLEASANT AND COOPERATIVE WITH CARE, ABLE TO MAKE NEEDS KNOWN.
[2025-01-24 20:17] VITALS: BP 119/69
[2025-01-25 03:05] VITALS: BP 120/81
--- NOTE | 2025-01-25 05:15 | NUR ---
SHIFT SUMMARY PT ALERT ORIENTED ABLE TO VERBALIZE NEEDS GETS UP IN ROOM AD JOAQUIN AMBULATES TO THE BATHROOM. RLE REMAINS RED BUT THE REDNESS IS DECREASING. NO C/O PAIN TO AREA. REMAINS ON VANCO AND UNASYN ORDERED FOR CELLULITIS. VSS ON RA SATTING AT 96%. FS DONE AC AND HS WAS 242. NO C/O ABD PAIN OR NAUSEA OR VOMITING AND NO LOOSE STOOLS. RESTING IN BED AT THIS TIME WITH CALL LIGHT IN REACH
[2025-01-25 05:31] LABS: Hematocrit 31.8 % (37.0-53.0); Hemoglobin 10.6 g/dL (13.5-17.5); Mean Corpuscular HGB Conc 33.3 g/dL (31.5-36.5); Mean Corpuscular Volume 88 fL (80-100); NRBC ABSOLUTE 0.00 K/mm3 (0.00-0.02); NRBC Auto 0.0 /100 WBC (0.0-0.2); Platelet Count 271 K/mm3 (150-400); RDW Coefficient Variation 13.8 % (11.7-14.2); RDW Standard Deviation 43.8 fL (35.1-46.3)
[2025-01-25 07:14] VITALS: BP 121/77
[2025-01-25 13:41] LABS: Vancomycin, Trough 19.1 ug/mL (5.0-10.0)
[2025-01-25 15:55] VITALS: BP 132/83
--- NOTE | 2025-01-25 17:37 | NUR ---
PATIENT'S IV INFILTRATED WHILE VANCO WAS RUNNING. LESS THAN 50ML'S LEFT OF VANCO. NOTIFIED PHARMACY WHO ADVISED TO NOT FINISH THE ABX. IV REMOVED. ICE PACK APPLIED TO AREA. TISSUE IS A LITTLE HARD, SKIN IS LIGHT PINK. PATIENT DENIES PAIN SINCE HAVING IV REMOVED. BREAK NURSE ATTEMPTED TO START ANOTHER IV, BUT WASN'T ABLE TO.
--- NOTE | 2025-01-25 17:56 | NUR ---
SHIFT SUMMARY A&OX4, COOPERATIVE WITH CARE, ANXIOUS AT TIMES. INDEPENDENT, FREQUENTLY TAKES WALKS AROUND UNIT. PAIN IN RLE. IV INFILTRATED AND NEW ONE NEEDS TO BE PLACED. NO ACUTE EVENTS THIS SHIFT. PATIENT IS CURRENTLY EATING DINNER. BED IN THE LOWEST POSITION. CALL LIGHT WITHIN REACH.
[2025-01-25 19:26] VITALS: BP 138/79
[2025-01-25] MEDS ORDERED: Ampicillin Sod/Sulbactam Sod 3 GM in NS 100 ML IV SCH (21:00)
[2025-01-26 02:16] VITALS: BP 139/94
--- NOTE | 2025-01-26 05:59 | NUR ---
NO ACUTE CHANGES, PLEASANT TO CARE, IV VANCO INFUSING, CLEARLY MAKES NEEDS KNOWN, INDEPENDANT IN ROOM, CALL LIGHT WITH IN REACH, WILL RELAY TO AM RN
[2025-01-26 07:39] VITALS: BP 138/81
[2025-01-26 16:01] VITALS: BP 149/94
--- NOTE | 2025-01-26 18:28 | NUR ---
SUMMARY- PT A/O X4, INDEPENDANT IN HALLWAY. TOLERATING FOOD AND FLUID. VOIDING AND STATES NORMAL TO LOOSE BM'S. HELD STOOL SOFTNER. RLE CELLULITIS HEALING, REDNESS BELOW MARKED LINES. PT DENIES PAIN, ALTHOGH HE TAKES METHADONE 170MG IN THE AM- USING A NICOTINE PATCH. USES PRN ALBUTEROL OCC WHEEZE. WILL REPORT TO NOC RN
[2025-01-26 19:47] VITALS: BP 140/87
[2025-01-27 03:27] VITALS: BP 139/76
--- NOTE | 2025-01-27 05:34 | NUR ---
SHIFT SUMMARY PATIENT A/O X4- IND IN THE ROOM, PLEASANT AND COOPERATIVE WITH CARE. VITAL SIGNS REMAINED STABLE. NO PAIN REPORTED. VOIDING WELL. NO ACUTE CHANGES THROUGHOUT THE SHIFT. WILL CONTINUE TO MONITOR AND REPORT TO ONCOMING RN.
[2025-01-27 05:48] LABS: BASOPHILS ABSOLUTE AUTO 0.09 K/mm3 (0.00-0.23); BASOPHILS PERCENT AUTO 1 % (0-2); EOSINOPHILS ABSOLUTE AUTO 0.23 K/mm3 (0.00-0.68); EOSINOPHILS PERCENT AUTO 3 % (0-6); Hematocrit 33.3 % (37.0-53.0); Hemoglobin 11.2 g/dL (13.5-17.5); IMMATURE GRAN ABSOLUTE AUTO 0.06 K/mm3 (0.00-0.10); IMMATURE GRAN PERCENT AUTO 1 % (0-1); LYMPHOCYTES ABSOLUTE AUTO 2.83 K/mm3 (0.84-5.20); LYMPHOCYTES PERCENT AUTO 42 % (21-46); MONOCYTES ABSOLUTE AUTO 0.75 K/mm3 (0.16-1.47); MONOCYTES PERCENT AUTO 11 % (4-13); Mean Corpuscular HGB Conc 33.6 g/dL (31.5-36.5); Mean Corpuscular Volume 85 fL (80-100); NEUTROPHILS ABSOLUTE AUTO 2.86 K/mm3 (1.96-9.15); NEUTROPHILS PERCENT AUTO 42 % (41-73); NRBC ABSOLUTE 0.00 K/mm3 (0.00-0.02); NRBC Auto 0.0 /100 WBC (0.0-0.2); Platelet Count 379 K/mm3 (150-400); RDW Coefficient Variation 13.3 % (11.7-14.2); RDW Standard Deviation 41.3 fL (35.1-46.3)
[2025-01-27 06:11] LABS: Alanine Aminotransfer (ALT/SGP 26.0 U/L (12-78); Albumin, Blood 2.9 g/dL (3.4-5.0); Albumin/Globulin Ratio 0.7 (0.8-1.8); Anion Gap 5.0 mmol/L (3-11); Aspartate Aminotrans (AST/SGOT 26.0 U/L (12-37); Bilirubin, Total 0.4 mg/dL (0.1-1.0); Blood Urea Nitrogen 13.0 mg/dL (8-24); CO2, Blood 29.0 mmol/L (21-32); Calcium, Blood 9.3 mg/dL (8.5-10.1); Chloride, Blood 107.0 mmol/L (98-108); Creatinine, Blood 0.86 mg/dL (0.60-1.20); Globulin, Blood 4.1 g/dL (2.2-4.0); Glucose, Blood 145.0 mg/dL (70-99); Potassium, Blood 3.8 mmol/L (3.5-5.5); Sodium, Blood 137.0 mmol/L (136-145); Total Protein, Blood 7.0 g/dL (6.4-8.2)
[2025-01-27 07:57] VITALS: BP 126/88
[2025-01-27] MEDS ORDERED: NS 250 ML IV PRN (08:55)
[2025-01-27] MEDS ORDERED: SULTRIDS PO (11:32)
[2025-01-27] MEDS ORDERED: TERB250 PO (11:32)
[2025-01-27] MEDS ORDERED: VISBIOME 112.51 EACH PO (11:33)
--- NOTE | 2025-01-27 12:26 | NUR ---
DISCHARGE 1220 DISCHARGE REVIEWED WITH PATIENT. PATIENT VERBALIZED UNDERSTANDING OF NEW MEDICATIONS AND FOLLOW-UP ORDERS. IV REMOVED INTACT. NO TELE. ASKED PATIENT TO WAIT IN ROOM UNTIL RIDE IS HERE. PATIENT APPEARS TO HAVE LEFT WITHOUT NOTIFYING NURSE AT 1225. PATIENT LEFT WITH ALL BELONGINGS.
== END 2025-01-27 12:15 | disposition home or self-care (01) | DRG 872 ==
LOC: ER 17:32 → ERHOLD 22:59 → MEDS 01-23 11:32
PROVIDERS: Family Medicine; Physician Assistant; ADMIT Internal Medicine
DX: A41.9 Sepsis, unspecified organism (principal); E87.1 Hypo-osmolality and hyponatremia; E87.3 Alkalosis; L03.115 Cellulitis of right lower limb; K86.1 Other chronic pancreatitis; F11.20 Opioid dependence, uncomplicated; K21.9 Gastro-esophageal reflux disease without esophagitis; F41.9 Anxiety disorder, unspecified; F17.210 Nicotine dependence, cigarettes, uncomplicated; D64.9 Anemia, unspecified; K52.9 Noninfective gastroenteritis and colitis, unspecified; B35.1 Tinea unguium; E11.9 Type 2 diabetes mellitus without complications; I10 Essential (primary) hypertension; G89.29 Other chronic pain; Z86.19 Personal history of other infectious and parasitic diseases; Z98.890 Other specified postprocedural states; Z79.84 Long term (current) use of oral hypoglycemic drugs; Z79.899 Other long term (current) drug therapy
CPT/HCPCS: 36415; 74177; 80053; 80202; 82803; 82947; 83036; 83605; 83690; 83880; 85025; 85027; 87040; 93005; 93010; 94760; 96374-59; 99285-25; A9270; J0295; J1650; J2405; J3373; J7030; J7040; J7050; J7120; Q9967

== ENCOUNTER 2025-03-13 08:29 | Emergency (ER) | payer OTHER ==
[~2025-03-13] VITALS: Ht 182.9 cm; Wt 99.3 kg
[~2025-03-13 08:29] MED LIST changes: +GUANFACINE HCL2 MG PO; +HYDPAM50
[2025-03-13 09:39] LABS: BASOPHILS ABSOLUTE AUTO 0.08 K/mm3 (0.00-0.23); BASOPHILS PERCENT AUTO 1 % (0-2); EOSINOPHILS ABSOLUTE AUTO 0.10 K/mm3 (0.00-0.68); EOSINOPHILS PERCENT AUTO 1 % (0-6); Hematocrit 37.2 % (37.0-53.0); Hemoglobin 12.5 g/dL (13.5-17.5); IMMATURE GRAN ABSOLUTE AUTO 0.03 K/mm3 (0.00-0.10); IMMATURE GRAN PERCENT AUTO 0 % (0-1); LYMPHOCYTES ABSOLUTE AUTO 2.91 K/mm3 (0.84-5.20); LYMPHOCYTES PERCENT AUTO 26 % (21-46); MONOCYTES ABSOLUTE AUTO 0.79 K/mm3 (0.16-1.47); MONOCYTES PERCENT AUTO 7 % (4-13); Mean Corpuscular HGB Conc 33.6 g/dL (31.5-36.5); Mean Corpuscular Volume 87 fL (80-100); NEUTROPHILS ABSOLUTE AUTO 7.26 K/mm3 (1.96-9.15); NEUTROPHILS PERCENT AUTO 65 % (41-73); NRBC ABSOLUTE 0.00 K/mm3 (0.00-0.02); NRBC Auto 0.0 /100 WBC (0.0-0.2); Platelet Count 389 K/mm3 (150-400); RDW Coefficient Variation 13.4 % (11.7-14.2); RDW Standard Deviation 42.6 fL (35.1-46.3)
[2025-03-13 09:58] LABS: Alanine Aminotransfer (ALT/SGP 28.0 U/L (12-78); Albumin, Blood 3.8 g/dL (3.4-5.0); Albumin/Globulin Ratio 0.8 (0.8-1.8); Anion Gap 6.0 mmol/L (3-11); Aspartate Aminotrans (AST/SGOT 13.0 U/L (12-37); Bilirubin, Total 0.3 mg/dL (0.1-1.0); Blood Urea Nitrogen 22.0 mg/dL (8-24); CO2, Blood 28.0 mmol/L (21-32); Calcium, Blood 9.3 mg/dL (8.5-10.1); Chloride, Blood 104.0 mmol/L (98-108); Creatinine, Blood 0.84 mg/dL (0.60-1.20); Globulin, Blood 4.5 g/dL (2.2-4.0); Glucose, Blood 122.0 mg/dL (70-99); Potassium, Blood 4.2 mmol/L (3.5-5.5); Sodium, Blood 134.0 mmol/L (136-145); Total Protein, Blood 8.3 g/dL (6.4-8.2)
[2025-03-13] MEDS ORDERED: Norco 5-325 Ta1 EACH PO (11:22)
[2025-03-13 11:27] VITALS: BP 127/84
== END 2025-03-13 11:30 | disposition home or self-care (01) ==
LOC: ER 08:29
PROVIDERS: Physician Assistant
DX: L03.011 Cellulitis of right finger (principal); Z59.89 Other problems related to housing and economic circumstances; F17.210 Nicotine dependence, cigarettes, uncomplicated; K21.9 Gastro-esophageal reflux disease without esophagitis; J44.9 Chronic obstructive pulmonary disease, unspecified; E11.9 Type 2 diabetes mellitus without complications; Z79.899 Other long term (current) drug therapy; Z79.4 Long term (current) use of insulin
CPT/HCPCS: 10061; 73140; 80053; 85025; 99283-25

== ENCOUNTER 2025-03-19 06:15 | Emergency (ER) | payer OTHER ==
[~2025-03-19] VITALS: Ht 182.9 cm; Wt 99.8 kg
[~2025-03-19 06:15] MED LIST changes: +Norco 5-325 Ta1 EACH PO
[2025-03-19 06:26] VITALS: BP 149/99
== END 2025-03-19 07:08 | disposition home or self-care (01) ==
LOC: ER 06:15
DX: Z48.817 Encounter for surgical aftercare following surgery on the skin and subcutaneous tissue (principal); K21.9 Gastro-esophageal reflux disease without esophagitis; Z79.84 Long term (current) use of oral hypoglycemic drugs; Z79.899 Other long term (current) drug therapy; Z79.2 Long term (current) use of antibiotics; Z87.891 Personal history of nicotine dependence
CPT/HCPCS: 99282

== ENCOUNTER 2025-03-24 09:56 | Emergency (ER) | payer OTHER ==
[~2025-03-24] VITALS: Ht 182.9 cm; Wt 99.3 kg
[2025-03-24 10:18] VITALS: BP 106/66
== END 2025-03-24 10:22 | disposition home or self-care (01) ==
LOC: ER 09:56
DX: Z48.817 Encounter for surgical aftercare following surgery on the skin and subcutaneous tissue (principal); E11.9 Type 2 diabetes mellitus without complications; I10 Essential (primary) hypertension; J44.9 Chronic obstructive pulmonary disease, unspecified; E78.5 Hyperlipidemia, unspecified; K21.9 Gastro-esophageal reflux disease without esophagitis; F17.210 Nicotine dependence, cigarettes, uncomplicated; Z79.899 Other long term (current) drug therapy; Z79.84 Long term (current) use of oral hypoglycemic drugs
CPT/HCPCS: 99283

== ENCOUNTER 2025-04-16 07:15 | Inpatient (IN) | payer OTHER ==
[~2025-04-16] VITALS: Ht 182.9 cm; Wt 99.4 kg
[2025-04-16] VITALS (13 sets, daily range): BP systolic 129–153; BP diastolic 76–99
[2025-04-16] MEDS ORDERED: Piperacillin/Tazobactam Sod 4.5 GM in NS 100 ML IV ONE (09:15)
[2025-04-16 09:31] LABS: BASOPHILS ABSOLUTE AUTO 0.07 K/mm3 (0.00-0.23); BASOPHILS PERCENT AUTO 1 % (0-2); EOSINOPHILS ABSOLUTE AUTO 0.24 K/mm3 (0.00-0.68); EOSINOPHILS PERCENT AUTO 2 % (0-6); Hematocrit 40.0 % (37.0-53.0); Hemoglobin 13.3 g/dL (13.5-17.5); IMMATURE GRAN ABSOLUTE AUTO 0.03 K/mm3 (0.00-0.10); IMMATURE GRAN PERCENT AUTO 0 % (0-1); LYMPHOCYTES ABSOLUTE AUTO 3.80 K/mm3 (0.84-5.20); LYMPHOCYTES PERCENT AUTO 35 % (21-46); MONOCYTES ABSOLUTE AUTO 0.92 K/mm3 (0.16-1.47); MONOCYTES PERCENT AUTO 8 % (4-13); Mean Corpuscular HGB Conc 33.3 g/dL (31.5-36.5); Mean Corpuscular Volume 90 fL (80-100); NEUTROPHILS ABSOLUTE AUTO 5.89 K/mm3 (1.96-9.15); NEUTROPHILS PERCENT AUTO 54 % (41-73); NRBC ABSOLUTE 0.00 K/mm3 (0.00-0.02); NRBC Auto 0.0 /100 WBC (0.0-0.2); Platelet Count 328 K/mm3 (150-400); RDW Coefficient Variation 12.9 % (11.7-14.2); RDW Standard Deviation 42.4 fL (35.1-46.3)
[2025-04-16] MEDS ORDERED: GUANFACINE HCL2 M1 PO (09:51)
[2025-04-16 09:56] LABS: Alanine Aminotransfer (ALT/SGP 24.0 U/L (12-78); Albumin, Blood 3.8 g/dL (3.4-5.0); Albumin/Globulin Ratio 0.9 (0.8-1.8); Anion Gap 4.0 mmol/L (3-11); Aspartate Aminotrans (AST/SGOT 17.0 U/L (12-37); Bilirubin, Total 0.3 mg/dL (0.1-1.0); Blood Urea Nitrogen 19.0 mg/dL (8-24); C-REACTIVE PROTEIN, EXT RANGE 0.35 mg/dL (0.000-0.300); CO2, Blood 31.0 mmol/L (21-32); Calcium, Blood 8.9 mg/dL (8.5-10.1); Chloride, Blood 104.0 mmol/L (98-108); Creatinine, Blood 0.74 mg/dL (0.60-1.20); Globulin, Blood 4.2 g/dL (2.2-4.0); Glucose, Blood 101.0 mg/dL (70-99); Potassium, Blood 4.2 mmol/L (3.5-5.5); Sodium, Blood 135.0 mmol/L (136-145); Total Protein, Blood 8.0 g/dL (6.4-8.2)
[2025-04-16] MEDS ORDERED: FLU VACC TS2025-26(6MOS UP)/PF 45 MCG/0.5 ML SYRINGE IM SCH (10:50)
[2025-04-16] MEDS ORDERED: Albuterol 2.5 MG/3 ML VIAL INH SCH (10:55)
[2025-04-16] MEDS ORDERED: Albuterol 2.5 MG/3 ML VIAL INH PRN ×2 (10:55→15:10)
[2025-04-16] MEDS ORDERED: Albuterol 2.5 MG/3 ML VIAL INH ONE (15:10)
[2025-04-16] MEDS ORDERED: FentaNYL Citrate 50 MCG/ML 2 ML Injection IV PRN ×4 (15:10→15:15)
[2025-04-16] MEDS ORDERED: Ipratropium Bromide INH 0.02% 0.5 mg/2.5ML Vial INH ONE (15:10)
[2025-04-16] MEDS ORDERED: Midazolam HCl 1MG / ML 2ML Vial IV ONE (15:15)
[2025-04-16] MEDS ORDERED: Citric Acid/Sodium Citrate 30 ML BTL PO ONE (15:15)
[2025-04-16] MEDS ORDERED: Dexamethasone Sod Phos 10 MG/ML 1ML VIAL ONE (15:42)
[2025-04-16] MEDS ORDERED: Ketorolac Tromethamine 30mg Vial ONE (15:42)
[2025-04-16] MEDS ORDERED: Lidocaine HCL 1% 10 ML MDV ONE (15:48)
[2025-04-16] MEDS ORDERED: Bupivacaine HCl 2.5 MG/ML 10ML P/F Injection ONE (15:49)
[2025-04-16] MEDS ORDERED: FentaNYL Citrate 50 MCG/ML 2 ML Injection ONE ×3 (16:21→17:21)
[2025-04-16] MEDS ORDERED: CeFAZolin Sodium 1000 mg Vial ONE (16:31)
[2025-04-16] MEDS ORDERED: Ondansetron HCl 2 MG / ML 2ML Vial ONE (16:45)
[2025-04-16] MEDS ORDERED: Vancomycin (Pharmacy Consult) IV SCH (17:20)
[2025-04-16] MEDS ORDERED: Piperacillin/Tazobactam Sod 4.5 GM in NS 100 ML IV SCH (18:00)
--- NOTE | 2025-04-16 18:49 | NUR ---
PATIENT ARRIVED FROM PACU. ALERT X4 7/10 PAIN IN THUMB. ABX HUNG AND PRN PAIN MEDS GIVEN . IN ROOM
[2025-04-17 05:21] VITALS: BP 149/93
--- NOTE | 2025-04-17 05:47 | NUR ---
PT ON IV ABX, EXISTS SOMEWHERE BETWEEN ANXIOUS AND NORMAL MENTATION OCCASIONALLY FLIGHTY IDEAS TOLD THIS IS BASELINE. PT ABLE TO SLEEP FOR SEVERAL HOURS THIS EVENING. PT VERY ENTHUSIASTIC ABOUT THE CARE HE HAS RECEIVED AT [facility]. PT IS PLEASANT AND USES CALL LIGHT EFFECTIVELY.
[2025-04-17 07:55] VITALS: BP 140/93
[2025-04-17 09:46] LABS: BASOPHILS ABSOLUTE AUTO 0.04 K/mm3 (0.00-0.23); BASOPHILS PERCENT AUTO 0 % (0-2); EOSINOPHILS ABSOLUTE AUTO 0.01 K/mm3 (0.00-0.68); EOSINOPHILS PERCENT AUTO 0 % (0-6); Hematocrit 37.1 % (37.0-53.0); Hemoglobin 12.7 g/dL (13.5-17.5); IMMATURE GRAN ABSOLUTE AUTO 0.05 K/mm3 (0.00-0.10); IMMATURE GRAN PERCENT AUTO 0 % (0-1); LYMPHOCYTES ABSOLUTE AUTO 3.07 K/mm3 (0.84-5.20); LYMPHOCYTES PERCENT AUTO 22 % (21-46); MONOCYTES ABSOLUTE AUTO 0.84 K/mm3 (0.16-1.47); MONOCYTES PERCENT AUTO 6 % (4-13); Mean Corpuscular HGB Conc 34.2 g/dL (31.5-36.5); Mean Corpuscular Volume 88 fL (80-100); NEUTROPHILS ABSOLUTE AUTO 9.71 K/mm3 (1.96-9.15); NEUTROPHILS PERCENT AUTO 71 % (41-73); NRBC ABSOLUTE 0.00 K/mm3 (0.00-0.02); NRBC Auto 0.0 /100 WBC (0.0-0.2); Platelet Count 309 K/mm3 (150-400); RDW Coefficient Variation 12.8 % (11.7-14.2); RDW Standard Deviation 41.2 fL (35.1-46.3)
[2025-04-17 10:11] LABS: Anion Gap 7.0 mmol/L (3-11); Blood Urea Nitrogen 22.0 mg/dL (8-24); CO2, Blood 26.0 mmol/L (21-32); Calcium, Blood 8.4 mg/dL (8.5-10.1); Chloride, Blood 106.0 mmol/L (98-108); Creatinine, Blood 0.84 mg/dL (0.60-1.20); Glucose, Blood 193.0 mg/dL (70-99); Potassium, Blood 4.3 mmol/L (3.5-5.5); Sodium, Blood 135.0 mmol/L (136-145)
[2025-04-17 10:14] LABS: Vancomycin, Trough 16.2 ug/mL (5.0-10.0)
[2025-04-17 15:37] VITALS: BP 131/119
[2025-04-17 15:44] VITALS: BP 120/76
--- NOTE | 2025-04-17 16:48 | NUR ---
SHIFT SUMMARY NO ACUTE CHANGES, REMAINS A/Ox4, INDEPENDENT IN ROOM AND HALLS. PT POSTIVE FOR MRSA - PLACED IN CONTACT ISOLATION AND EDUCATED. GOOD APPETITE AND FLUID INTAKE. TREATED FOR PAIN PER EMADusty. DR. RICE IN TODAY AND COMPLETED DRESSING CHANGE. PER DWAYNE REMOVE PACKING TOMORROW AND COMPLETE DAILY DRESSING CHANGES. AWAITING SENSITIVITY RESULTS AND LIKELY DC c ORDERS FOR MASTER. PT CURRENTLY RESTING IN BED WITH BED IN LOWEST POSITION AND CALL LIGHT IN REACH. APPEARS COMFORTABLE AND IN NO DISTRESS.
--- NOTE | 2025-04-17 18:15 | NUR ---
ADMISSION PT ADMITTED TO UNIT FROM ER FOR TACHYCARDIA AND DIZZINESS c AMBULATION. PT ARRIVES TO UNIT AND ABLE TO STAND AND AMBULATE INDEPENDENTLY TO BED. PT UP TO BR SHORTLY AFTER ADMISSION AND DENIES ANY DIZZINESS OR LIGHTHEADEDNESS AT THIS TIME. RN EDUCATED ON IMPORTANCE OF CALLING FOR ASSISTANCE TO BATHROOM DUE TO RECENT FALL AND SYMPTOMATIC c AMBULATION. TELEPHONE ORDERS OBTAINED FOR TELE AND CPAP. RN NOTIFIED PROVIDED OF ADMITTING BP, NO NEW ORDERS AT THIS TIME. TELE PLACED ON PT - SINUS TACHY @ 112. PT DENIES CHEST PAIN, PRESSURE, OR SOB. 2 RN SKIN CHECK COMPLETED - NO WOUNDS TO REPORT. MED REC COMPLETED. ORIENTED PT TO ROOM AND CALL SYSTEM. PT CURRENTLY RESTING IN BED EATING DINNER WITH BED IN LOWEST POSITION AND CALL LIGHT IN REACH.
[2025-04-17 19:36] VITALS: BP 133/92
[2025-04-18 03:24] VITALS: BP 125/91
--- NOTE | 2025-04-18 03:48 | NUR ---
SHIFT SUMMARY PATIENT IS ALERT AND ORIENTED. PATIENT HAS HAD NO ACUTE EVENTS THIS SHIFT. VITAL SIGNS REVIEWED. PATIENT HAS NO REPORTS OF PAIN THIS SHIFT. PATIENT HAS NO COMPLAINTS OF SOB, NAUSEA, VOMITTING THIS SHIFT. PER DR, DRESSING CHANGE TO BE DONE TODAY. PATIENT HAS BEEN IND IN ROOM. ABX INFUSED ORDERED. BED IN LOCKED AND LOWEST POSITION. CALL LIGHT IN PLACE.
[2025-04-18 06:20] LABS: BASOPHILS ABSOLUTE AUTO 0.09 K/mm3 (0.00-0.23); BASOPHILS PERCENT AUTO 1 % (0-2); EOSINOPHILS ABSOLUTE AUTO 0.20 K/mm3 (0.00-0.68); EOSINOPHILS PERCENT AUTO 2 % (0-6); Hematocrit 38.5 % (37.0-53.0); Hemoglobin 12.6 g/dL (13.5-17.5); IMMATURE GRAN ABSOLUTE AUTO 0.02 K/mm3 (0.00-0.10); IMMATURE GRAN PERCENT AUTO 0 % (0-1); LYMPHOCYTES ABSOLUTE AUTO 4.47 K/mm3 (0.84-5.20); LYMPHOCYTES PERCENT AUTO 44 % (21-46); MONOCYTES ABSOLUTE AUTO 0.82 K/mm3 (0.16-1.47); MONOCYTES PERCENT AUTO 8 % (4-13); Mean Corpuscular HGB Conc 32.7 g/dL (31.5-36.5); Mean Corpuscular Volume 89 fL (80-100); NEUTROPHILS ABSOLUTE AUTO 4.62 K/mm3 (1.96-9.15); NEUTROPHILS PERCENT AUTO 45 % (41-73); NRBC ABSOLUTE 0.00 K/mm3 (0.00-0.02); NRBC Auto 0.0 /100 WBC (0.0-0.2); Platelet Count 310 K/mm3 (150-400); RDW Coefficient Variation 12.8 % (11.7-14.2); RDW Standard Deviation 41.9 fL (35.1-46.3)
[2025-04-18 06:38] LABS: Anion Gap 4 mmol/L (3-11); Blood Urea Nitrogen 19 mg/dL (8-24); C-REACTIVE PROTEIN, EXT RANGE <0.290 mg/dL (0.000-0.300); CO2, Blood 28 mmol/L (21-32); Calcium, Blood 8.7 mg/dL (8.5-10.1); Chloride, Blood 109 mmol/L (98-108); Creatinine, Blood 0.89 mg/dL (0.60-1.20); Glucose, Blood 135 mg/dL (70-99); Potassium, Blood 4.3 mmol/L (3.5-5.5); Sodium, Blood 137 mmol/L (136-145)
[2025-04-18 07:39] VITALS: BP 128/89
[2025-04-18] MEDS ORDERED: Polyethylene Glycol 3350 17 gm PO SCH (09:00)
[2025-04-18] MEDS ORDERED: CefTRIAXone Sodium 2,000 MG in NS 100 ML IV ONE (12:10)
[2025-04-18] MEDS ORDERED: DAPTOmycin 800 MG in NS 50 ML IV SCH ×2 (12:45→18:00)
[2025-04-18] MEDS ORDERED: CUBICIN RF500 M1 IV (12:57)
[2025-04-18] MEDS ORDERED: CEFTRIAXONE2 G1 IV (12:57)
[2025-04-18] MEDS ORDERED: IBUP600 PO (12:57)
[2025-04-18] MEDS ORDERED: Docusate Sodiu250 MG PO (12:58)
[2025-04-18] MEDS ORDERED: OXAYDO5 M1 PO (12:59)
[2025-04-18] MEDS ORDERED: SENN187 PO (12:59)
[2025-04-18] MEDS ORDERED: MIRALAX17 GM PO (12:59)
[2025-04-18 19:11] VITALS: BP 125/90
--- NOTE | 2025-04-18 19:11 | NUR ---
SHIFT SUMMARY PATIENT ALERT AND ORIENTED X4. PATIENT MAKE NEEDS KNOWN. PLEASANT AND RECEPTIVE DURING CARE. NO ACUTE CHANGES THROUGHOUT SHIFT. VITAL SIGNS STABLE. COMPLAINT OF PAIN MEDICATED PER EMAR. SELF-REPOSITIONED DURING SHIFT. CHANGED R THUMB DRESSING. BED LOCKED AND IN LOWEST POSITION. CALL LIGHT WITHIN REACH.
--- NOTE | 2025-04-19 03:37 | NUR ---
SHIFT SUMMARY NO ACUTE EVENTS DURING THIS SHIFT. RIGHT THUMB DRESSING C/D/I. PT DENIES PAIN AND DISCOMFORT. VSS. BED AT THE LOWEST POSITION, CALL LIGHT W/I REACH. PT IS A/O X4, PLEASANT AND ABLE TO MAKE HIS NEEDS KNOWN.
[2025-04-19 04:26] VITALS: BP 117/88
[2025-04-19 08:05] VITALS: BP 144/96
[2025-04-19] MEDS ORDERED: CefTRIAXone Sodium 2,000 MG in NS 100 ML IV SCH (12:00)
[2025-04-19 18:04] VITALS: BP 113/57
--- NOTE | 2025-04-19 18:42 | NUR ---
SHIFT SUMMARY PATIENT ALERT AND ORIENTED X4. PATIENT MAKE NEEDS KNOWN. PLEASANT AND COOPERATIVE DURING CARE. NO ACUTE CHANGES THROUGHOUT SHIFT. VITAL SIGNS STABLE. COMPLAINT OF PAIN MEDICATED PER EMAR. SELF-REPOSITIONED DURING SHIFT. BED LOCKED AND IN LOWEST POSITION. CALL LIGHT WITHIN REACH.
[2025-04-19 19:26] VITALS: BP 142/90
--- NOTE | 2025-04-20 03:46 | NUR ---
SHIFT SUMMARY: PT AOX4. DRESSING CHANGE DONE THIS SHIFT TO R THUMB. PT COMPLAINED OF SOME PAIN, MEDICATED PER eMAR. CALL LIGHT IS WITHIN REACH. BED IS LOW AND LOCKED.
[2025-04-20 04:37] VITALS: BP 108/76
[2025-04-20 07:37] VITALS: BP 120/82
[2025-04-20 10:22] LABS: Vancomycin, Trough 3.5 ug/mL (5.0-10.0)
[2025-04-20 15:47] VITALS: BP 115/86
--- NOTE | 2025-04-20 18:37 | NUR ---
PT A/OX4. PLEASANT AND COOPERATIVE WITH CARE. INDEPENDENT IN ROOM. WOUND DRESSING WAS CHANGED TODAY PER ORDERS. PT IS CURRENTLY IN BED VISITING WITH . NO ACUTE NEEDS AT THIS TIME.
[2025-04-20 19:57] VITALS: BP 101/66
[2025-04-21 05:59] VITALS: BP 109/81
[2025-04-21 06:57] LABS: C-REACTIVE PROTEIN, EXT RANGE 0.337 mg/dL (0.000-0.300)
[2025-04-21 07:58] VITALS: BP 121/87
[2025-04-21] MEDS ORDERED: NS 250 ML IV PRN (13:00)
[2025-04-21] MEDS ORDERED: DAPTOmycin 800 MG in NS 50 ML IV ONE (13:00)
--- NOTE | 2025-04-21 14:48 | NUR ---
SHIFT / DISCHARGE SUMMARY: PATIENT A+O X4 AND ABLE TO MAKE NEEDS KNOWN. PATIENT LEFT IN [facility] THIS AFTERNOON AFTER RECIEVING ABX. PATIENT EDUCATED ABOUT APPOINTMENTS THAT HE NEEDS TO ATTEND IN MASTER. BELONGINGS PROVIDED BACK TO PATIENT UPON DISCHARGE, EDUCATED WAS DISCUSSED TO PATIENT AND GIRLFRIEND. BOTH VERBALIZED UNDERSTANDING. MR. DWYER D/C AT 1315.
== END 2025-04-21 14:10 | disposition home or self-care (01) | DRG 629 ==
LOC: ER 07:15 → MEDS 07:16 → ER 07:16 → MEDS 13:46 → ER 04-17 07:16 → MEDS 04-17 07:16 → ER 04-17 14:02 → MEDS 04-17 14:02 → ENPENDDIS 04-18 12:09 → MEDS 04-21 14:10
PROVIDERS: Emergency Medicine; Orthopaedic Surgery; ADMIT Internal Medicine
PROC: 3E03329 Introduction of Other Anti-infective into Peripheral Vein, Percutaneous Approach (ICD-10-PCS; 2025-04-16)
PROC: 0PBT0ZZ Excision of Right Finger Phalanx, Open Approach (ICD-10-PCS; principal; 2025-04-16 15:30)
PROC: 3E04329 Introduction of Other Anti-infective into Central Vein, Percutaneous Approach (ICD-10-PCS; 2025-04-18)
PROC: 05HY33Z Insertion of Infusion Device into Upper Vein, Percutaneous Approach (ICD-10-PCS; 2025-04-18)
DX: E11.69 Type 2 diabetes mellitus with other specified complication (principal); F11.20 Opioid dependence, uncomplicated; M86.9 Osteomyelitis, unspecified; M84.641A Pathological fracture in other disease, right hand, initial encounter for fracture; L03.011 Cellulitis of right finger; I10 Essential (primary) hypertension; F25.9 Schizoaffective disorder, unspecified; M89.541 Osteolysis, right hand; B95.62 Methicillin resistant Staphylococcus aureus infection as the cause of diseases classified elsewhere; B95.2 Enterococcus as the cause of diseases classified elsewhere; B95.1 Streptococcus, group B, as the cause of diseases classified elsewhere; F41.9 Anxiety disorder, unspecified; G89.29 Other chronic pain; J44.9 Chronic obstructive pulmonary disease, unspecified; Z86.14 Personal history of Methicillin resistant Staphylococcus aureus infection; Z86.19 Personal history of other infectious and parasitic diseases; Z87.891 Personal history of nicotine dependence
CPT/HCPCS: 36415; 36569; 73140; 80048; 80053; 80202; 82550; 85025; 85651; 86140; 87070; 87071; 87075; 87076; 87077; 87147; 87186; 87205; 88305; 88311; 94640; 94664; 94760; 96365; 96367; 99285-25; A9270; G0378; J0690; J0696; J0878; J1100; J1885; J2003; J2250; J2405; J2543; J2704; J3010; J3373; J7050; J7120

== ENCOUNTER 2025-04-22 02:41 | Day surgery (SDC) | payer OTHER ==
[~2025-04-22 02:41] MED LIST changes: +CEFTRIAXONE2 G1 IV; +CUBICIN RF500 M1 IV; +Docusate Sodiu250 MG PO; +GUANFACINE HCL2 M1 PO; +IBUP600 PO; +MIRALAX17 GM PO; +OXAYDO5 M1 PO; +SENN187 PO
[2025-04-22] MEDS ORDERED: DAPTOmycin 800 MG in NS 50 ML IV SCH (06:00)
[2025-04-22] MEDS ORDERED: CefTRIAXone Sodium 2,000 MG in NS 100 ML IV SCH (07:20)
[2025-04-22 11:40] VITALS: BP 141/83
== END 2025-04-22 12:11 | disposition home or self-care (01) ==
LOC: ATC 02:41
DX: M86.141 Other acute osteomyelitis, right hand (principal); B95.62 Methicillin resistant Staphylococcus aureus infection as the cause of diseases classified elsewhere; L03.011 Cellulitis of right finger; M84.444A Pathological fracture, right finger(s), initial encounter for fracture; E11.9 Type 2 diabetes mellitus without complications; I10 Essential (primary) hypertension; K21.9 Gastro-esophageal reflux disease without esophagitis; Z87.891 Personal history of nicotine dependence; Z79.899 Other long term (current) drug therapy
CPT/HCPCS: 96365; 96368; J0696; J0878

== ENCOUNTER 2025-04-23 00:43 | Day surgery (SDC) | payer OTHER ==
[2025-04-23] MEDS ORDERED: CefTRIAXone Sodium 2,000 MG in NS 100 ML IV SCH (01:00)
[2025-04-23] MEDS ORDERED: DAPTOmycin 800 MG in NS 50 ML IV SCH (06:00)
[2025-04-23 11:20] VITALS: BP 142/85
[2025-04-24] MEDS ORDERED: CefTRIAXone Sodium 2,000 MG in NS 100 ML IV SCH (01:00)
[2025-04-24] MEDS ORDERED: DAPTOmycin 800 MG in NS 50 ML IV SCH (06:00)
== END 2025-04-23 11:59 | disposition home or self-care (01) ==
LOC: ATC 00:43
DX: M86.141 Other acute osteomyelitis, right hand (principal); A49.02 Methicillin resistant Staphylococcus aureus infection, unspecified site; I10 Essential (primary) hypertension; E11.9 Type 2 diabetes mellitus without complications; F25.9 Schizoaffective disorder, unspecified; F11.20 Opioid dependence, uncomplicated; G89.29 Other chronic pain; K21.9 Gastro-esophageal reflux disease without esophagitis; Z79.4 Long term (current) use of insulin; Z79.899 Other long term (current) drug therapy; Z87.19 Personal history of other diseases of the digestive system; Z87.891 Personal history of nicotine dependence
CPT/HCPCS: 96365; 96368; J0696; J0878

== ENCOUNTER 2025-04-24 02:21 | Day surgery (SDC) | payer OTHER ==
[2025-04-24] MEDS ORDERED: DAPTOmycin 800 MG in NS 50 ML IV SCH (10:05)
[2025-04-24] MEDS ORDERED: CefTRIAXone Sodium 2,000 MG in NS 100 ML IV SCH (10:10)
[2025-04-24 11:40] VITALS: BP 121/82
== END 2025-04-24 12:11 | disposition home or self-care (01) ==
LOC: ATC 02:21
DX: M86.141 Other acute osteomyelitis, right hand (principal); B95.62 Methicillin resistant Staphylococcus aureus infection as the cause of diseases classified elsewhere; L03.011 Cellulitis of right finger; M84.444A Pathological fracture, right finger(s), initial encounter for fracture; E11.9 Type 2 diabetes mellitus without complications; G89.29 Other chronic pain; I10 Essential (primary) hypertension; K21.9 Gastro-esophageal reflux disease without esophagitis; F11.20 Opioid dependence, uncomplicated; Z87.891 Personal history of nicotine dependence; Z79.899 Other long term (current) drug therapy
CPT/HCPCS: 96365; 96368; J0696; J0878

== ENCOUNTER 2025-04-25 03:30 | Day surgery (SDC) | payer OTHER ==
[2025-04-25] MEDS ORDERED: DAPTOmycin 800 MG in NS 50 ML IV SCH (06:00)
[2025-04-25] MEDS ORDERED: CefTRIAXone Sodium 2,000 MG in NS 100 ML IV SCH (06:00)
[2025-04-25 11:20] VITALS: BP 131/94
== END 2025-04-25 11:44 | disposition home or self-care (01) ==
LOC: ATC 03:30
DX: E11.69 Type 2 diabetes mellitus with other specified complication (principal); M86.141 Other acute osteomyelitis, right hand; B95.62 Methicillin resistant Staphylococcus aureus infection as the cause of diseases classified elsewhere; I10 Essential (primary) hypertension; F11.20 Opioid dependence, uncomplicated; Z87.891 Personal history of nicotine dependence
CPT/HCPCS: 96365; 96368; J0696; J0878

== ENCOUNTER 2025-04-26 02:25 | Day surgery (SDC) | payer OTHER ==
[~2025-04-26 02:25] MED LIST changes: +CefTRIAXone Sodium 2,000 MG in NS 100 ML IV SCH
[2025-04-26] MEDS ORDERED: DAPTOmycin 800 MG in NS 50 ML IV SCH (06:00)
[2025-04-26 11:12] VITALS: BP 142/96
== END 2025-04-26 11:48 | disposition home or self-care (01) ==
LOC: ATC 02:25
DX: M86.141 Other acute osteomyelitis, right hand (principal); B95.62 Methicillin resistant Staphylococcus aureus infection as the cause of diseases classified elsewhere; E11.69 Type 2 diabetes mellitus with other specified complication; I10 Essential (primary) hypertension; K21.9 Gastro-esophageal reflux disease without esophagitis; F11.20 Opioid dependence, uncomplicated; F25.9 Schizoaffective disorder, unspecified; Z79.899 Other long term (current) drug therapy; Z87.19 Personal history of other diseases of the digestive system; Z87.891 Personal history of nicotine dependence
CPT/HCPCS: 96365; 96368; J0696; J0878

== ENCOUNTER 2025-04-28 04:29 | Day surgery (SDC) | payer OTHER ==
[~2025-04-28 04:29] MED LIST changes: -CefTRIAXone Sodium 2,000 MG in NS 100 ML IV SCH
[2025-04-28] MEDS ORDERED: CefTRIAXone Sodium 2,000 MG in NS 100 ML IV SCH (06:00)
[2025-04-28] MEDS ORDERED: DAPTOmycin 800 MG in NS 50 ML IV SCH (06:00)
[2025-04-28 11:33] VITALS: BP 146/94
== END 2025-04-28 11:41 | disposition home or self-care (01) ==
LOC: ATC 04:29
DX: E11.69 Type 2 diabetes mellitus with other specified complication (principal); M86.141 Other acute osteomyelitis, right hand; B95.62 Methicillin resistant Staphylococcus aureus infection as the cause of diseases classified elsewhere; I10 Essential (primary) hypertension; F11.20 Opioid dependence, uncomplicated; Z87.891 Personal history of nicotine dependence
CPT/HCPCS: 96365; 96368; J0696; J0878

== ENCOUNTER 2025-04-29 02:46 | Day surgery (SDC) | payer OTHER ==
[~2025-04-29 02:46] MED LIST changes: +CefTRIAXone Sodium 2,000 MG in NS 100 ML IV SCH
[2025-04-29] MEDS ORDERED: DAPTOmycin 800 MG in NS 50 ML IV SCH (06:00)
[2025-04-29 11:23] VITALS: BP 133/88
[2025-04-29 12:47] LABS: C-REACTIVE PROTEIN, EXT RANGE <0.290 mg/dL (0.000-0.300)
== END 2025-04-29 11:49 | disposition home or self-care (01) ==
LOC: ATC 02:46
PROVIDERS: Nurse Practitioner Family
DX: E11.69 Type 2 diabetes mellitus with other specified complication (principal); M86.141 Other acute osteomyelitis, right hand; B95.62 Methicillin resistant Staphylococcus aureus infection as the cause of diseases classified elsewhere; I10 Essential (primary) hypertension; Z87.891 Personal history of nicotine dependence
CPT/HCPCS: 36591; 82550; 86140; 96365; J0696; J0878

== ENCOUNTER 2025-04-30 00:37 | Day surgery (SDC) | payer OTHER ==
[~2025-04-30 00:37] MED LIST changes: -CefTRIAXone Sodium 2,000 MG in NS 100 ML IV SCH
[2025-04-30] MEDS ORDERED: DAPTOmycin 800 MG in NS 50 ML IV SCH (06:00)
[2025-04-30] MEDS ORDERED: CefTRIAXone Sodium 2,000 MG in NS 100 ML IV SCH (06:00)
[2025-04-30 13:45] VITALS: BP 155/93
== END 2025-04-30 14:10 | disposition home or self-care (01) ==
LOC: ATC 00:37
DX: E11.69 Type 2 diabetes mellitus with other specified complication (principal); M86.141 Other acute osteomyelitis, right hand; B95.62 Methicillin resistant Staphylococcus aureus infection as the cause of diseases classified elsewhere; I10 Essential (primary) hypertension; F11.20 Opioid dependence, uncomplicated; F25.9 Schizoaffective disorder, unspecified; Z87.891 Personal history of nicotine dependence; Z79.899 Other long term (current) drug therapy
CPT/HCPCS: 96365; 96368; J0696; J0878

== ENCOUNTER 2025-05-01 03:57 | Day surgery (SDC) | payer OTHER ==
[~2025-05-01 03:57] MED LIST changes: +CefTRIAXone Sodium 2,000 MG in NS 100 ML IV SCH
[2025-05-01] MEDS ORDERED: DAPTOmycin 800 MG in NS 50 ML IV SCH (06:00)
[2025-05-01 11:23] VITALS: BP 145/94
== END 2025-05-01 11:45 | disposition home or self-care (01) ==
LOC: ATC 03:57
DX: E11.69 Type 2 diabetes mellitus with other specified complication (principal); M86.141 Other acute osteomyelitis, right hand; B95.62 Methicillin resistant Staphylococcus aureus infection as the cause of diseases classified elsewhere; I10 Essential (primary) hypertension; F11.20 Opioid dependence, uncomplicated; F25.9 Schizoaffective disorder, unspecified; Z87.891 Personal history of nicotine dependence; Z79.899 Other long term (current) drug therapy
CPT/HCPCS: 96365; 96368; J0696; J0878

== ENCOUNTER 2025-05-02 06:31 | Day surgery (SDC) | payer OTHER ==
[~2025-05-02 06:31] MED LIST changes: +DAPTOmycin 800 MG in NS 50 ML IV SCH
[2025-05-02 11:22] VITALS: BP 133/84
== END 2025-05-02 11:44 | disposition home or self-care (01) ==
LOC: ATC 06:31
DX: E11.69 Type 2 diabetes mellitus with other specified complication (principal); M86.141 Other acute osteomyelitis, right hand; B95.62 Methicillin resistant Staphylococcus aureus infection as the cause of diseases classified elsewhere; I10 Essential (primary) hypertension; Z87.891 Personal history of nicotine dependence; F11.20 Opioid dependence, uncomplicated
CPT/HCPCS: 96365; 96368; J0696; J0878

== ENCOUNTER 2025-05-05 00:40 | Day surgery (SDC) | payer OTHER ==
[~2025-05-05 00:40] MED LIST changes: -CefTRIAXone Sodium 2,000 MG in NS 100 ML IV SCH; -DAPTOmycin 800 MG in NS 50 ML IV SCH
[2025-05-05] MEDS ORDERED: CefTRIAXone Sodium 2,000 MG in NS 100 ML IV SCH (01:00)
[2025-05-05] MEDS ORDERED: DAPTOmycin 800 MG in NS 50 ML IV SCH (06:00)
[2025-05-05 11:35] VITALS: BP 132/81
[2025-05-05 12:35] LABS: C-REACTIVE PROTEIN, EXT RANGE 0.806 mg/dL (0.000-0.300)
== END 2025-05-05 11:45 | disposition home or self-care (01) ==
LOC: ATC 00:40
PROVIDERS: Internal Medicine
DX: E11.69 Type 2 diabetes mellitus with other specified complication (principal); M86.141 Other acute osteomyelitis, right hand; B95.62 Methicillin resistant Staphylococcus aureus infection as the cause of diseases classified elsewhere; I10 Essential (primary) hypertension; F11.20 Opioid dependence, uncomplicated; F25.9 Schizoaffective disorder, unspecified; K21.9 Gastro-esophageal reflux disease without esophagitis; Z87.891 Personal history of nicotine dependence; Z79.899 Other long term (current) drug therapy
CPT/HCPCS: 82550; 86140; 96365; 96368; J0696; J0878

== ENCOUNTER 2025-05-06 00:11 | Day surgery (SDC) | payer OTHER ==
[2025-05-06] MEDS ORDERED: CefTRIAXone Sodium 2,000 MG in NS 100 ML IV SCH (01:00)
[2025-05-06] MEDS ORDERED: DAPTOmycin 800 MG in NS 50 ML IV SCH (06:00)
[2025-05-06 11:26] VITALS: BP 128/79
== END 2025-05-06 11:47 | disposition home or self-care (01) ==
LOC: ATC 00:11
DX: M86.141 Other acute osteomyelitis, right hand (principal); A49.02 Methicillin resistant Staphylococcus aureus infection, unspecified site; E11.69 Type 2 diabetes mellitus with other specified complication; F11.20 Opioid dependence, uncomplicated; F25.9 Schizoaffective disorder, unspecified; I10 Essential (primary) hypertension; K21.9 Gastro-esophageal reflux disease without esophagitis; Z79.899 Other long term (current) drug therapy; Z87.19 Personal history of other diseases of the digestive system; Z87.891 Personal history of nicotine dependence
CPT/HCPCS: 96365; 96368; J0696; J0878

== ENCOUNTER 2025-05-07 01:48 | Day surgery (SDC) | payer OTHER ==
[~2025-05-07 01:48] MED LIST changes: +CefTRIAXone Sodium 2,000 MG in NS 100 ML IV SCH
[2025-05-07] MEDS ORDERED: DAPTOmycin 800 MG in NS 50 ML IV SCH (06:00)
[2025-05-07 11:25] VITALS: BP 122/77
== END 2025-05-07 11:46 | disposition home or self-care (01) ==
LOC: ATC 01:48
DX: M86.141 Other acute osteomyelitis, right hand (principal); B95.62 Methicillin resistant Staphylococcus aureus infection as the cause of diseases classified elsewhere; L03.011 Cellulitis of right finger; M84.444A Pathological fracture, right finger(s), initial encounter for fracture; E11.9 Type 2 diabetes mellitus without complications; G89.29 Other chronic pain; I10 Essential (primary) hypertension; K21.9 Gastro-esophageal reflux disease without esophagitis; Z87.891 Personal history of nicotine dependence; Z79.899 Other long term (current) drug therapy
CPT/HCPCS: 96365; 96368; J0696; J0878

== ENCOUNTER 2025-05-09 01:07 | Day surgery (SDC) | payer OTHER ==
[~2025-05-09 01:07] MED LIST changes: -CefTRIAXone Sodium 2,000 MG in NS 100 ML IV SCH
[2025-05-09] MEDS ORDERED: DAPTOmycin 800 MG in NS 50 ML IV SCH (06:00)
[2025-05-09] MEDS ORDERED: CefTRIAXone Sodium 2,000 MG in NS 100 ML IV SCH (06:00)
[2025-05-09 11:05] VITALS: BP 116/80
== END 2025-05-09 11:28 | disposition home or self-care (01) ==
LOC: ATC 01:07
DX: E11.69 Type 2 diabetes mellitus with other specified complication (principal); M86.141 Other acute osteomyelitis, right hand; B95.62 Methicillin resistant Staphylococcus aureus infection as the cause of diseases classified elsewhere; I10 Essential (primary) hypertension; F11.20 Opioid dependence, uncomplicated; Z87.891 Personal history of nicotine dependence
CPT/HCPCS: 96365; 96368; J0696; J0878

== ENCOUNTER 2025-05-10 01:01 | Day surgery (SDC) | payer OTHER ==
[~2025-05-10 01:01] MED LIST changes: +CefTRIAXone Sodium 2,000 MG in NS 100 ML IV SCH
[2025-05-10] MEDS ORDERED: DAPTOmycin 800 MG in NS 50 ML IV SCH (06:00)
[2025-05-10 11:29] VITALS: BP 117/85
== END 2025-05-10 11:39 | disposition home or self-care (01) ==
LOC: ATC 01:01
DX: E11.69 Type 2 diabetes mellitus with other specified complication (principal); M86.8X4 Other osteomyelitis, hand; B95.62 Methicillin resistant Staphylococcus aureus infection as the cause of diseases classified elsewhere; I10 Essential (primary) hypertension; F17.210 Nicotine dependence, cigarettes, uncomplicated
CPT/HCPCS: 96365; 96368; J0696; J0878

== ENCOUNTER 2025-05-11 02:49 | Day surgery (SDC) | payer OTHER ==
[2025-05-11] MEDS ORDERED: DAPTOmycin 800 MG in NS 50 ML IV SCH (06:00)
[2025-05-11 11:24] VITALS: BP 111/70
== END 2025-05-11 11:33 | disposition home or self-care (01) ==
LOC: ATC 02:49
DX: M86.141 Other acute osteomyelitis, right hand (principal); B95.62 Methicillin resistant Staphylococcus aureus infection as the cause of diseases classified elsewhere; L03.011 Cellulitis of right finger; M84.441A Pathological fracture, right hand, initial encounter for fracture; E11.9 Type 2 diabetes mellitus without complications; G89.29 Other chronic pain; I10 Essential (primary) hypertension; K21.9 Gastro-esophageal reflux disease without esophagitis; Z87.891 Personal history of nicotine dependence; Z79.899 Other long term (current) drug therapy
CPT/HCPCS: 96365; 96368; J0696; J0878

== ENCOUNTER 2025-05-12 00:29 | Day surgery (SDC) | payer OTHER ==
[~2025-05-12 00:29] MED LIST changes: -CefTRIAXone Sodium 2,000 MG in NS 100 ML IV SCH
[2025-05-12] MEDS ORDERED: CefTRIAXone Sodium 2,000 MG in NS 100 ML IV SCH (01:00)
[2025-05-12] MEDS ORDERED: DAPTOmycin 800 MG in NS 50 ML IV SCH (06:00)
[2025-05-12 11:21] VITALS: BP 128/86
[2025-05-12 12:42] LABS: C-REACTIVE PROTEIN, EXT RANGE 0.462 mg/dL (0.000-0.300)
== END 2025-05-12 11:55 | disposition home or self-care (01) ==
LOC: ATC 00:29
PROVIDERS: Internal Medicine
DX: E11.69 Type 2 diabetes mellitus with other specified complication (principal); M86.141 Other acute osteomyelitis, right hand; B95.62 Methicillin resistant Staphylococcus aureus infection as the cause of diseases classified elsewhere; I10 Essential (primary) hypertension; F11.20 Opioid dependence, uncomplicated; Z87.891 Personal history of nicotine dependence
CPT/HCPCS: 82550; 86140; 96365; 96368; J0696; J0878

== ENCOUNTER 2025-05-14 05:27 | Day surgery (SDC) | payer OTHER ==
[2025-05-14] MEDS ORDERED: DAPTOmycin 800 MG in NS 50 ML IV SCH (06:00)
[2025-05-14] MEDS ORDERED: CefTRIAXone Sodium 2,000 MG in NS 100 ML IV SCH (09:00)
[2025-05-14 11:05] VITALS: BP 127/74
== END 2025-05-14 11:30 | disposition home or self-care (01) ==
LOC: ATC 05:27
DX: M86.141 Other acute osteomyelitis, right hand (principal); B95.62 Methicillin resistant Staphylococcus aureus infection as the cause of diseases classified elsewhere; L03.011 Cellulitis of right finger; M84.444A Pathological fracture, right finger(s), initial encounter for fracture; E11.9 Type 2 diabetes mellitus without complications; G89.4 Chronic pain syndrome; I10 Essential (primary) hypertension; K21.9 Gastro-esophageal reflux disease without esophagitis; Z87.891 Personal history of nicotine dependence; Z79.899 Other long term (current) drug therapy
CPT/HCPCS: 96365; 96368; J0696; J0878

== ENCOUNTER 2025-05-15 00:46 | Day surgery (SDC) | payer OTHER ==
[2025-05-15] MEDS ORDERED: CefTRIAXone Sodium 2,000 MG in NS 100 ML IV SCH (01:00)
[2025-05-15] MEDS ORDERED: DAPTOmycin 800 MG in NS 50 ML IV SCH (06:00)
[2025-05-15 13:15] VITALS: BP 122/79
== END 2025-05-15 13:40 | disposition home or self-care (01) ==
LOC: ATC 00:46
DX: E11.69 Type 2 diabetes mellitus with other specified complication (principal); M86.141 Other acute osteomyelitis, right hand; B95.62 Methicillin resistant Staphylococcus aureus infection as the cause of diseases classified elsewhere; I10 Essential (primary) hypertension; F11.20 Opioid dependence, uncomplicated; Z87.891 Personal history of nicotine dependence
CPT/HCPCS: 96365; 96368; J0696; J0878

== ENCOUNTER 2025-05-16 02:40 | Day surgery (SDC) | payer OTHER ==
[2025-05-16] MEDS ORDERED: CefTRIAXone Sodium 2,000 MG in NS 100 ML IV SCH (06:00)
[2025-05-16] MEDS ORDERED: DAPTOmycin 800 MG in NS 50 ML IV SCH (06:00)
[2025-05-16 11:08] VITALS: BP 141/89
== END 2025-05-16 11:32 | disposition home or self-care (01) ==
LOC: ATC 02:40
DX: E11.69 Type 2 diabetes mellitus with other specified complication (principal); M86.141 Other acute osteomyelitis, right hand; B95.62 Methicillin resistant Staphylococcus aureus infection as the cause of diseases classified elsewhere; I10 Essential (primary) hypertension; F11.20 Opioid dependence, uncomplicated; Z87.891 Personal history of nicotine dependence
CPT/HCPCS: 96365; 96368; J0696; J0878

== ENCOUNTER 2025-05-17 00:45 | Day surgery (SDC) | payer OTHER ==
[2025-05-17] MEDS ORDERED: CefTRIAXone Sodium 2,000 MG in NS 100 ML IV SCH (01:00)
[2025-05-17] MEDS ORDERED: DAPTOmycin 800 MG in NS 50 ML IV SCH (06:00)
[2025-05-17 11:05] VITALS: BP 148/86
== END 2025-05-17 11:25 | disposition home or self-care (01) ==
LOC: ATC 00:45
DX: E11.69 Type 2 diabetes mellitus with other specified complication (principal); M86.141 Other acute osteomyelitis, right hand; A49.02 Methicillin resistant Staphylococcus aureus infection, unspecified site; I10 Essential (primary) hypertension; G89.29 Other chronic pain; K21.9 Gastro-esophageal reflux disease without esophagitis; F11.20 Opioid dependence, uncomplicated; F25.9 Schizoaffective disorder, unspecified; Z87.891 Personal history of nicotine dependence; Z79.899 Other long term (current) drug therapy
CPT/HCPCS: 96365; 96368; J0696; J0878

== ENCOUNTER 2025-05-18 00:16 | Day surgery (SDC) | payer OTHER ==
[~2025-05-18] VITALS: Wt 100.2 kg
[2025-05-18] MEDS ORDERED: DAPTOmycin 800 MG in NS 50 ML IV SCH (06:00)
[2025-05-18] MEDS ORDERED: CefTRIAXone Sodium 2,000 MG in NS 100 ML IV SCH (07:20)
[2025-05-18 11:10] VITALS: BP 152/95
== END 2025-05-18 11:38 | disposition home or self-care (01) ==
LOC: ATC 00:16
DX: M86.141 Other acute osteomyelitis, right hand (principal); B95.62 Methicillin resistant Staphylococcus aureus infection as the cause of diseases classified elsewhere; E11.69 Type 2 diabetes mellitus with other specified complication; G89.29 Other chronic pain; I10 Essential (primary) hypertension; F11.20 Opioid dependence, uncomplicated; F25.9 Schizoaffective disorder, unspecified; F41.9 Anxiety disorder, unspecified; Z79.899 Other long term (current) drug therapy; Z87.19 Personal history of other diseases of the digestive system; Z87.891 Personal history of nicotine dependence
CPT/HCPCS: 96365; 96368; J0696; J0878

== ENCOUNTER 2025-05-19 02:38 | Day surgery (SDC) | payer OTHER ==
[2025-05-19] MEDS ORDERED: DAPTOmycin 800 MG in NS 50 ML IV SCH (06:00)
[2025-05-19] MEDS ORDERED: CefTRIAXone Sodium 2,000 MG in NS 100 ML IV SCH (06:00)
[2025-05-19 11:31] VITALS: BP 125/95
[2025-05-19 11:56] LABS: C-REACTIVE PROTEIN, EXT RANGE 0.317 mg/dL (0.000-0.300)
--- NOTE | 2025-05-19 15:51 | NUR ---
Lab results from today faxed to Dr. Flores and Gale Salcido [facility] offices.
== END 2025-05-19 11:43 | disposition home or self-care (01) ==
LOC: ATC 02:38
PROVIDERS: Internal Medicine
DX: E11.69 Type 2 diabetes mellitus with other specified complication (principal); M86.141 Other acute osteomyelitis, right hand; B95.62 Methicillin resistant Staphylococcus aureus infection as the cause of diseases classified elsewhere; I10 Essential (primary) hypertension; F11.20 Opioid dependence, uncomplicated; Z87.891 Personal history of nicotine dependence
CPT/HCPCS: 82550; 86140; 96365; 96368; J0696; J0878

== ENCOUNTER 2025-05-20 08:21 | Day surgery (SDC) | payer OTHER ==
[~2025-05-20 08:21] MED LIST changes: +CefTRIAXone Sodium 2,000 MG in NS 100 ML IV SCH; +DAPTOmycin 800 MG in NS 50 ML IV SCH
[2025-05-20 11:12] VITALS: BP 152/91
== END 2025-05-20 11:22 | disposition home or self-care (01) ==
LOC: ATC 08:21
DX: E11.69 Type 2 diabetes mellitus with other specified complication (principal); M86.141 Other acute osteomyelitis, right hand; B95.62 Methicillin resistant Staphylococcus aureus infection as the cause of diseases classified elsewhere; I10 Essential (primary) hypertension; Z87.891 Personal history of nicotine dependence
CPT/HCPCS: 96365; 96368; J0696; J0878

== ENCOUNTER 2025-05-21 07:18 | Day surgery (SDC) | payer OTHER ==
[2025-05-21 11:07] VITALS: BP 139/83
== END 2025-05-21 11:30 | disposition home or self-care (01) ==
LOC: ATC 07:18
DX: E11.69 Type 2 diabetes mellitus with other specified complication (principal); M86.141 Other acute osteomyelitis, right hand; A49.02 Methicillin resistant Staphylococcus aureus infection, unspecified site; I10 Essential (primary) hypertension; K21.9 Gastro-esophageal reflux disease without esophagitis; F11.20 Opioid dependence, uncomplicated; F25.9 Schizoaffective disorder, unspecified; Z79.899 Other long term (current) drug therapy; Z87.891 Personal history of nicotine dependence
CPT/HCPCS: 96365; 96368; J0696; J0878